=== PATIENT | male | born 1955 | race Caucasian/White ===

== ENCOUNTER 2018-03-24 08:12 | Outpatient (CLI) | payer MEDICAID, SELFPAY ==
[2018-03-24 09:56] LABS: Microalb ug/mg Crea 8.1 ug/mg Cr
[2018-03-24 10:06] LABS: Anion Gap 6.3 mmol/L (3-11); BUN 13 mg/dL (7-18); CO2 31.7 mmol/L (21.0-32.0); CREATININE 0.93 mg/dL (0.70-1.30); Chloride 102 mmol/L (98-107); Cholesterol 192 mg/dL (50-200); Glucose 130 mg/dL (70-100); HDL Cholesterol 27 mg/dL (40-60); LDL CHOLESTEROL 110 mg/dL (<100); Potassium 4.3 mmol/L (3.5-5.1); Sodium 140 mmol/L (136-145); Triglyceride 321 mg/dL (30-150)
== END 2018-03-24 08:32 ==
PROVIDERS: PCP Internal Medicine; Visit Provider Internal Medicine
DX: E11.9 Type 2 diabetes mellitus without complications (principal); E78.1 Pure hyperglyceridemia
CPT/HCPCS: 36415; 80048; 80061; 83721; 82043; 82570

== ENCOUNTER 2018-06-04 16:22 | Inpatient (IN) | payer MEDICARE, MEDICAID, SELFPAY ==
[2018-06-04] VITALS (58 sets, daily range): BP systolic 93–144; BP diastolic 49–93; PULSE 69–120; RESP 8–25; TEMP 36.3–39.2; O2SAT 91–98
--- NOTE | 2018-06-04 16:40 | ED.GENADUL_ITS ---
Discharge Plan Disposition Patient Disposition: [facility] INPATIENT Condition: Stable Discharge Details Chief Complaint: RespSymp Clinical Impression: Acute prostatitis, Sepsis Primary Care Provider: Deloris Ledesma ED Provider: Raul Martino Home Meds and New Rx's Prescriptions: No Action atorvastatin 20 mg tablet 20 mg PO DAILY Qty: 90 RF: 3 warfarin [Coumadin] 2.5 mg tablet 2.5 mg PO DAILY Qty: 140 RF: 3 cetirizine [Zyrtec] 10 MG tablet 10 mg PO DAILY PRNRF: 0 ginseng 100 MG capsule 100 mg PO PRN PRNRF: 0 gabapentin 300 MG capsule 300 mg PO TID Qty: 270 RF: 3 multivitamin [Daily Multi-Vitamin] 1 EACH tablet 1 ea PO DAILY RF: 0 allopurinol 100 mg tablet 100 mg PO DAILY 90 Days Qty: 90 RF: 3 Medical Decision Making This is a 63-year-old male with a past medical history of PE on Coumadin, gout, who presents today for 2-3 days of fatigue, cough, chills, decreased appetite. He does admit to mild shortness of breath. He denies any associated chest pain. Signs and symptoms are concerning for an infectious etiology. He is afebrile here, but notably tachycardic. He has not taken any recent antipyretics. He does have some mild burning when he urinates, this may be a source of infection for him. He denies any abdominal or pelvic pain. He denies any chest pain. Signs and symptoms do not appear consistent with ACS at this time. Lungs are clear, however he may have subtle crackles that I am unable to auscultate secondary to dehydration. Will check for flu, infectious etiologies, as well as PE. 7:33 PM Patient's laboratory workup has returned, patient is febrile, tachycardia is improving. He has a white count of 18, notable left shift, no bandemia. INR is 2.7. CT scan of the chest reveals no evidence of acute intrapulmonary process. CT scan of the abdomen and prostate reveal evidence of minimal diverticulosis without diverticulitis. Prostate is notably enlarged. Urinalysis has returned and demonstrates leuk esterase, nitrites, and micro was unable to be done secondary to the profuse amount of WBCs. Patient's renal function is stable, lactate is 1.4. With a benign EKG, negative troponin, negative CT angios of the chest I do not think that PE or cardiac etiology as a source of his symptoms, however with his notably enlarged prostate, in conjunction with a severe amount of WBCs in the urine, with nitrates and leukoesterase, in conjunction with his symptoms, I feel that the patient is suffering from bacterial prostatitis. He has no testicular or penile tenderness on exam. I do not think that a prostate exam should be performed in the setting of bacterial prostatitis. Because of the patient's Coumadin use we will hold off on Levaquin and instead give 2 g of Rocephin. We will send for urine cultures. Blood cultures are still pending. I did contact hospitalist , and discussed the case with him, he agrees with the assessment and plan. We will put in bridging orders for the time being. The patient will be admitted to the ICU is [facility]. I have extensively reviewed the treatment plan with the patient. I have addressed all patient concerns at this time. I have also discussed the plan with the admitting physician and they agree with the current assessment and plan and have agreed to assume responsibility for the patient. All parties demonstrate verbal understanding and agreement with our assessment and plan at this time. EKG 16: 46 Rate 110, intervals normal, sinus tachycardia, no significant ST elevations or depressions, no T wave inversions. Small Q wave in lead III. COMPARISON: CT CHEST FOR PULMONARY EMBOLUS 10/15/2013 6:08 PM FINDINGS: Pulmonary arteries: The pulmonary emboli seen on the 2013 have resolved. No new emboli are seen. Aorta: Normal. No aortic aneurysm. No aortic dissection. Lungs: There no worrisome lung nodules. There is mild scarring the lung bases. At the right lung bases is stable 4 mm noncalcified nodule Pleural space: Normal. No pneumothorax. No pleural effusion. Heart: Normal. No cardiomegaly. No pericardial effusion. Lymph nodes: Unremarkable. No enlarged lymph nodes. Bones/joints: Unremarkable. No acute fracture. Soft tissues: Unremarkable. IMPRESSION: EXAM: CT Angiography Abdomen With Contrast EXAM DATE/TIME: 06/04/2018 5:57 PM CLINICAL HISTORY: 63 years old, male; Signs and symptoms; Other: Fatigue; Shortness of breath TECHNIQUE: Imaging protocol: Axial computed tomographic angiography images of the abdomen with intravenous contrast material, including non-contrast images if performed. Coronal and sagittal reformatted images were created and reviewed. 3D rendering: MIP reconstructed images were created and reviewed. COMPARISON: CT CHEST FOR PULMONARY EMBOLUS 10/15/2013 6:08 PM FINDINGS: Lungs: Unremarkable. No consolidation. VASCULATURE: Aorta: No aortic aneurysm. No aortic dissection. Celiac trunk and mesenteric arteries: No occlusion or significant stenosis. Renal arteries: No occlusion or significant stenosis. ABDOMEN: Liver: Normal. No mass. Gallbladder and bile ducts: Normal. No calcified stones. No ductal dilation. Pancreas: Normal. No ductal dilation. Spleen: Normal. No splenomegaly. Adrenals: Normal. No mass. Kidneys and ureters: Normal. No hydronephrosis. Stomach and bowel: There few diverticula in left colon but no surrounding inflammation. Reproductive: There is moderate enlargement of the prostate gland. This is causing mild mass effect on the base the bladder. Intraperitoneal space: Unremarkable. No free air. No significant fluid collection. Bones/joints: Unremarkable. No acute fracture. No dislocation. Soft tissues: Unremarkable. Lymph nodes: Unremarkable. No enlarged lymph nodes. IMPRESSION: #1 no evidence of pulmonary emboli pneumonia nor pulmonary edema. #2 minimal diverticulosis without evidence of diverticulitis. #3 moderate enlargement of prostate gland. Dictated and Authenticated by: Vimal Clemente MD. Ordering:BOB Carter MD HPI General Date/Time Provider Initiated Documentation: 06/04/18 16:23 . HPI Narrative: This is a 63-year-old male with a past medical history of gout, pulmonary embolism on Coumadin, who presents today for evaluation of fatigue, cough, decreased appetite and chills. He states that for the last 2-3 days he has had these symptoms, he has not taken any antipyretics. He denies any chest pain, pleuritic chest pain, but does admit to mild shortness of breath. He denies any arm, neck, or shoulder pain or radiation. He denies any vomiting or diarrhea. He does admit to mild increase in urinary frequency and mild burning. He denies any recent STDs. He denies any vomiting, diarrhea, focal weakness, headache, neck pain, vision change. He denies any other sick contacts. He states that he has been taking his Coumadin as directed. He has no other complaints modifying factors at this time. He denies any recent surgeries or long trips. Related Data Home Medications Medication Instructions Recorded Confirmed cetirizine [Zyrtec] 10 mg PO DAILY PRN tab-cap 02/15/15 06/04/18 ginseng 100 mg PO PRN PRN 10/04/15 06/04/18 gabapentin 300 mg PO TID #270 tab-cap 02/04/17 06/04/18 multivitamin [Multi-Vitamin Daily] 1 ea PO DAILY tab 05/21/17 06/04/18 allopurinol 100 mg tablet 100 mg PO DAILY 90 Days #90 tab-cap 12/15/17 06/04/18 atorvastatin 20 mg tablet 20 mg PO DAILY #90 tab 03/24/18 06/04/18 warfarin 2.5 mg tablet 2.5 mg PO DAILY #140 tab 05/19/18 06/04/18 Previous Rx's Medication Instructions Recorded gabapentin 300 mg PO TID #270 tab-cap 02/04/17 allopurinol 100 mg tablet 100 mg PO DAILY 90 Days #90 tab-cap 12/15/17 atorvastatin 20 mg tablet 20 mg PO DAILY #90 tab 03/24/18 warfarin 2.5 mg tablet 2.5 mg PO DAILY #140 tab 05/19/18 Allergies Allergy/AdvReac Type Severity Reaction Status Date / Time No Known Drug Allergies Allergy Verified 04/21/18 12:06 General Stated Complaint: RespSymp JOHNATHAN: 3 Review of Systems Review of Systems All systems reviewed & are unremarkable except as noted in HPI and below PFSH Social History Smoking/Tobacco Use Status: Never Alcohol Intake: former Drug use: Never Substance use type: does not use Adopted: No Caregiver/Support person: No Foster care: No Household members: family Housing: house Number of Children: 0 current occupation: used to work in [employer] Pets and animals: Yes What type of physical activity do you participate in: none and 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 3.ENT: Atraumatic external nose and ears. Moist MM. Neck: Symmetric, trachea midline, No thyromegaly. Patient demonstrates good movement of cervical neck. There is no nuchal rigidity, no nuchal tenderness. Patient is able to flex the neck without any difficulty or significant pain. Negative Kernig's and Brudzinski sign. 4.CVS: +S1/S2, No murmurs or gallops. Peripheral pulses 2+ and equal in all extremities. Brisk capillary refill in all extremities. 5.RESP: Unlabored respiratory effort. Clear to auscultation bilaterally. No wheezes rales or rhonchi 6.GI: Soft, Nontender/Nondistended, No hepatosplenomegaly. No guarding or rebound. No testicular or scrotal tenderness. 7.MSK: Normocephalic/Atraumatic, Extremities w/o deformity or ttp No cyanosis or clubbing, Normal movement of all extremities. No calf tenderness, radial pulses and dorsalis pedis pulses +2 bilaterally. 8.Skin: Warm, Dry. No rashes or lesions. 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 Sensation grossly intact, no focal neurologic deficits. 10.Psych: (AAO) x3. Appropriate mood and affect Course Vital Signs Temperature 36.3 C L 06/04/18 16:28 Pulse 120 H 06/04/18 16:28 Respiratory Rate 18 06/04/18 16:28 Blood Pressure 144/75 H 06/04/18 16:28 Pulse Oximetry 95 06/04/18 16:28 Temperature 36.3 C L 06/04/18 16:28 Temperature Source Skin 06/04/18 16:28 Pulse 120 H 06/04/18 16:28 Respiratory Rate 18 06/04/18 16:28 Blood Pressure 144/75 H 06/04/18 16:28 Pulse Oximetry 95 06/04/18 16:28 Lab/Test Results Lab/Test Results: 06/04/18 16:33 Blood Blood Culture - Pending 06/04/18 16:33 Blood Blood Culture - Pending
[2018-06-04 17:11] LABS: Lactate-non-spesis 1.4 mmol/l (0.6-1.4)
[2018-06-04 17:13] LABS: Abs Immature Grans 0.06 k/cumm (0.0-0.09); Absolute Basophil Count 0.02 k/cumm (0.0-0.2); Absolute Eosinophil Count 0.02 k/cumm (0.0-0.7); Absolute Lymphocyte Count 0.66 k/cumm (1.2-3.4); Absolute Neutrophil Count 16.13 k/cumm (1.2-6.7); Basophils % 0.1; Eosinophils % 0.1; HCT 45.8 % (40.0-50.0); HGB 15.8 g/dL (13.5-17.5); Immature Grans % 0.3; Lymphocytes % 3.6; Mean Corp. HGB Concentration 34.5 g/dL (32.0-36.0); Mean Corpuscular Volume 92.7 fL (80-95); Mean Platelet Volume 9.2 fL (8.0-11.0); Monocytes % 7.9; Platelet Count 200 x1000/uL (130-400); RBC 4.94 m/cumm (4.50-6.00); RBC Distribution Width 13.2 % (11.8-14.1); White Blood Cell Count 18.33 k/cumm (4.4-10.8)
[2018-06-04 17:20] LABS: Absolute Monocyte Count 1.45 k/cumm (0.11-0.7)
[2018-06-04 17:21] LABS: Bilirubin Small (Negative); Blood Large (Negative); Clarity Cloudy; Glucose Negative (Negative); Ketones 15 mg/dL (Negative); Leukocyte Esterase Small (Negative); Nitrite Positive (Negative)
[2018-06-04 17:28] LABS: C & S Indicated? Yes
[2018-06-04] MEDS: Normal Saline 1,000 ML 1000 ML IV ×2 (17:50→19:34)
[2018-06-04 17:56] LABS: INR 2.7 (0.9-1.1); PTT Activated 34.3 sec (21.0-31.4)
[2018-06-04 18:01] LABS: ALT 28 U/L (12-78); AST 13 U/L (15-37); Albumin 3.6 g/dL (3.4-5.0); Alkaline Phosphatase 103 U/L (46-116); Anion Gap 8.7 mmol/L (3-11); BUN 15 mg/dL (7-18); Bilirubin, Total 1.6 mg/dL (0.2-1.0); CO2 28.3 mmol/L (21.0-32.0); CREATININE 1.17 mg/dL (0.70-1.30); Chloride 99 mmol/L (98-107); Glucose 147 mg/dL (70-100); Potassium 3.9 mmol/L (3.5-5.1); Sodium 136 mmol/L (136-145); Total Protein 7.3 g/dL (6.4-8.2)
[2018-06-04 18:02] LABS: Troponin I < 0.02 ng/mL (0.00-0.06)
--- NOTE | 2018-06-04 18:15 | DI.CT_ITS ---
SYMPTOM/DIAGNOSIS: SOB, FATIGUE, TACHYCARDIA, H/O PE PE CHEST CTA: CT angiography was performed with multi slice acquisition and multi planar and 3D reconstruction. CT angiography of the chest was performed with a bolus infusion of 100 cc's of Omnipaque 350. The patient has a history of previous pulmonary embolic disease seen on chest CT of 10/15/13. 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 No new embolus identified. Thoracic aorta and major branches appear normal. Lungs are generally clear. No pleural effusion is seen. Incidental pulmonary nodules are noted including a 5 mm. right lower lobe nodule. This appears unchanged from 10/15/13. Tracheobronchial tree appears intact. No mediastinal or hilar adenopathy. 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 in diameter. CONCLUSION: No evidence of acute pulmonary embolic disease. Presumed sequelae of old PE in right lower lobe pulmonary arterial vessels. ABDOMINAL AND PELVIC CT: CT examination of the abdomen and pelvis was performed following the contrast enhanced PE CT. Abdominal aorta is of normal diameter. No major branch vessel abnormality is seen. Liver, spleen and pancreas appear normal. Gallbladder and bile ducts are normal. Adrenals and kidneys are normal. No abdominal or pelvic adenopathy is seen. No evidence of diverticulitis or bowel obstruction. Normal appearance of the appendix. Prostatic enlargement noted. CONCLUSION: No evidence of acute intra-abdominal process.
[2018-06-04] MEDS: Omnipaque 350 MG/ML 100 ML BTL IJ (18:17)
--- NOTE | 2018-06-04 18:42 | DI.VRAD_ITS ---
EXAM: CT Angiography Chest With Contrast EXAM DATE/TIME: 06/04/2018 5:57 PM CLINICAL HISTORY: 63 years old, male; Signs and symptoms; Other: Fatigue; Shortness of breath TECHNIQUE: Imaging protocol: Axial computed tomographic angiography images of the chest with intravenous contrast using CT angiography protocol. Coronal and sagittal reformatted images were created and reviewed. 3D rendering: MIP reconstructed images were created and reviewed. COMPARISON: CT CHEST FOR PULMONARY EMBOLUS 10/15/2013 6:08 PM FINDINGS: Pulmonary arteries: The pulmonary emboli seen on the 2013 have resolved. No new emboli are seen. Aorta: Normal. No aortic aneurysm. No aortic dissection. Lungs: There no worrisome lung nodules. There is mild scarring the lung bases. At the right lung bases is stable 4 mm noncalcified nodule Pleural space: Normal. No pneumothorax. No pleural effusion. Heart: Normal. No cardiomegaly. No pericardial effusion. Lymph nodes: Unremarkable. No enlarged lymph nodes. Bones/joints: Unremarkable. No acute fracture. Soft tissues: Unremarkable. IMPRESSION: EXAM: CT Angiography Abdomen With Contrast EXAM DATE/TIME: 06/04/2018 5:57 PM CLINICAL HISTORY: 63 years old, male; Signs and symptoms; Other: Fatigue; Shortness of breath TECHNIQUE: Imaging protocol: Axial computed tomographic angiography images of the abdomen with intravenous contrast material, including non-contrast images if performed. Coronal and sagittal reformatted images were created and reviewed. 3D rendering: MIP reconstructed images were created and reviewed. COMPARISON: CT CHEST FOR PULMONARY EMBOLUS 10/15/2013 6:08 PM FINDINGS: Lungs: Unremarkable. No consolidation. VASCULATURE: Aorta: No aortic aneurysm. No aortic dissection. Celiac trunk and mesenteric arteries: No occlusion or significant stenosis. Renal arteries: No occlusion or significant stenosis. ABDOMEN: Liver: Normal. No mass. Gallbladder and bile ducts: Normal. No calcified stones. No ductal dilation. Pancreas: Normal. No ductal dilation. Spleen: Normal. No splenomegaly. Adrenals: Normal. No mass. Kidneys and ureters: Normal. No hydronephrosis. Stomach and bowel: There few diverticula in left colon but no surrounding inflammation. Reproductive: There is moderate enlargement of the prostate gland. This is causing mild mass effect on the base the bladder. Intraperitoneal space: Unremarkable. No free air. No significant fluid collection. Bones/joints: Unremarkable. No acute fracture. No dislocation. Soft tissues: Unremarkable. Lymph nodes: Unremarkable. No enlarged lymph nodes. IMPRESSION: #1 no evidence of pulmonary emboli pneumonia nor pulmonary edema. #2 minimal diverticulosis without evidence of diverticulitis. #3 moderate enlargement of prostate gland. Dictated and Authenticated by: Vimal Clemente MD. Ordering:BOB Carter MD
[2018-06-04] MEDS: cefTRIAXone 2 GM/50 ML BAG IVPB (18:57)
[2018-06-04] MEDS: Acetaminophen 500 MG TAB 1000 MG PO (18:59)
--- NOTE | 2018-06-04 20:06 | HPE_ITS ---
Date of service: 06/04/18 Time of Service: 20:05 Assessment and Plan (1) Acute prostatitis: Current visit: Yes Status: Acute Patient will be admitted to ICU for further parenteral antibiotics, iv fluids, analgesics. we will get urology consultation in the a.m. and obtain U.S. of kidneys, bladder to rule other nidus for UTI; otherwise he will need 4 to 6 weeks of antibiotics. 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 This complicates his antibiotic treatment in that quinolones and bactrim interact w/ his warfarin. He was started on Rocephin 2 gm in the ER. Blood and urine cultures were obtained and antibiotics may need to be modified based upon his culture results. He has not been on recent antibiotics and not been hospitalized so there is no suspicion for resistant Enterobacteriacae or Staph. I have kept him on the Rocephin for now. He is not sexually active and therefore not concerned for GC or Chlamydia. He could be switched to Levaquin but his warfarin dose would have to be titrated downward and closely monitored. (2) Type 2 diabetes mellitus without complication, without long-term current use of insulin: Current visit: No Status: Chronic will monitor his glucose, check an A1c and cover w/ meal coverage and sliding scale corrective novolog History of Present Illness Chief Complaint: rigors/chills Narrative: 63-year-old male presents to the emergency department with 2-day history of increased urinary urgency and urge incontinence now developed acute rigors beginning this afternoon. For the last 2 days he has had fatigue and decreased appetite. He initially thought he had the flu but when the chills become uncontrollable he decided to present to the emergency department. He has no associated shortness of breath, abdominal pain, chest pain, dizziness and he is not noticed any gross hematuria or burning with urination. He was evaluated in the emergency department by Dr. Raul Martino who did laboratory and radiologic studies that included a CBC, pro time, APTT, CMP, blood lactate level, troponin level, TSH, and urinalysis. CT scan of the chest abdomen and pelvis were also performed. Remarkable labs included a leukocytosis of 18,330 with a leftward shift of 16,000 neutrophils. No anemia or thrombocytopenia. Electrolytes are unremarkable. Glucose was elevated 147. Blood lactate was normal at 1.4. BUN and creatinine were normal at 15 and 1.17. LFTs were normal. Troponin was normal at less than 0.02. TSH was normal at 0.6. Urinalysis was remarkable for being cloudy with 100 mg/dL protein 50 mg/dL ketones large amount of blood positive nitrites small amount of bilirubin small amount of leukocyte esterase but negative for glucose. Blood and urine cultures were sent off. Patient was started on parenteral antibiotics including Rocephin 2 g IV. He was diagnosed with acute prostatitis with impending sepsis. Picture of sepsis was suggested by his acute presentation with a temperature 39.2 and being tachycardic with low blood pressures of 100/62. He was given 2 L of IV fluids and Tylenol and is feeling improved. His diagnostic imaging included a CT scan of the chest abdomen and pelvis. He had no evidence of pulmonary emboli and no pulmonary edema. He had minimal diverticulosis without evidence for diverticulitis and he has moderate enlargement of his prostate gland. Patient is being admitted to medical ICU for further IV fluid support along with parenteral antibiotics. Consultation will be obtained with Dr. Vinh Duarte urology in the morning. Prostate exam was not performed in the emergency room out of fear of causing further seating of the blood stream for manipulation the prostate. Review of Systems Constitutional Reports system reviewed and no additional complaints, except as docu PFSH Medical History Type 2 diabetes, diet controlled (Chronic) Gout, unspecified (Chronic) Post herpetic neuralgia (Chronic) h/o elevated psa (Chronic) Pulmonary embolism (Resolved 10/16/13) Surgical History thyroid biopsy (Resolved 11/15/13) Family History Mother Essential hypertension Stroke Father Spinal stenosis Other Personal history of malignant neoplasm Social History Smoking/Tobacco Use Status: Never Alcohol Intake: former Year quit: 2008 Drug use: Never Substance use type: does not use Adopted: No Caregiver/Support person: No Foster care: No Household members: family Housing: house Number of Children: 0 current occupation: used to work in [employer] Pets and animals: Yes What type of physical activity do you participate in: none and other Details: shoveling snow Duration: 45-60 minutes/day Seatbelt use: always Drive intox or ride w/intox commercial truck driver: No Water heater temp set <120 deg: No Working smoke detector in home: No Fire extinguisher in home: Yes Carbon monox detector in home: No Do you feel safe at home: Yes Do you feel safe in your relationship?: Yes Victim of physical abuse: No Victim of emotional abuse: No Victim of sexual abuse: No Meds Home Medications Medication Instructions Recorded Confirmed Type cetirizine [Zyrtec] 10 mg PO DAILY PRN tab-cap 02/15/15 06/04/18 History ginseng 100 mg PO PRN PRN 10/04/15 06/04/18 History gabapentin 300 mg PO TID #270 tab-cap 02/04/17 06/04/18 Rx multivitamin [Multi-Vitamin Daily] 1 ea PO DAILY tab 05/21/17 06/04/18 History allopurinol 100 mg tablet 100 mg PO DAILY 90 Days #90 tab-cap 12/15/17 06/04/18 Rx atorvastatin 20 mg tablet 20 mg PO DAILY #90 tab 03/24/18 06/04/18 Rx warfarin 2.5 mg tablet 2.5 mg PO DAILY #140 tab 05/19/18 06/04/18 Rx Allergies Allergy/AdvReac Type Severity Reaction Status Date / Time No Known Drug Allergies Allergy Verified 04/21/18 12:06 Exam Const General: cooperative and no acute distress Nutritional Appearance: obese Orientation: alert, awake and oriented x3 HENMT Head: normal to inspection, no palpable skull fracture, normocephalic and atraumatic Ears: external ears normal and TM's normal bilaterally General nose exam: external nose normal, nares normal and no nasal discharge Face and sinus: normal facial exam, sinuses nontender and face symmetric Mouth: oral mucosae normal, lip normal, tongue normal, oropharynx normal and moist mucous membranes Throat: posterior oropharynx normal and uvula midline Eyes General: appearance normal, both eyes and all related structures Visual Villatoro: normal visual villatoro by confrontation Alignment and Position: alignment normal Periorbital: periorbital findings normal Eyelids: eyelids normal Conjunctivae: conjunctivae normal Sclera: sclerae normal Cornea: corneas normal Pupils: PERRL, normal by confrontation and accommodation normal EOM: EOM intact bilaterally Neck Neck: normal visual inspection, full ROM, no lymphadenopathy, trachea midline and supple Thyroid: thyroid normal Carotids: normal carotid upstroke Lymphatic: no lymphadenopathy noted Chest Chest: normal inspection of the chest and normal palpation of entire chest wall Resp Effort & Inspection: normal respiratory effort and able to speak in complete sentences Auscultation: clear to auscultation bilaterally Percussion: percussion normal Cardio Jugular venous pressure: no JVD Palpation: normal PMI Rate: regular rate Rhythm: regular rhythm Heart Sounds: S1 normal, S2 normal and normal, physiologic split S2 Pulses: normal peripheral pulses GI Inspection: normal to inspection Palpation: soft, no hepatosplenomegaly and nontender Percussion: normal to percussion Auscultation: normal bowel sounds General: bladder normal to inspection, bladder normal to palpation and No CVA tenderness Back/Spine/Pelvis Back: no CVA tenderness Cervical Spine: normal cervical lordosis and cervical ROM normal Thoracic/Lumbar Spine: thoracic and lumbar spine normal to inspection and thoraco-lumbar ROM normal Skin General skin exam: no rashes or lesions noted, elasticity normal and turgor norm al Lesions: no lesions Rashes: no rashes Trauma: no lacerations or abrasions Hair: normal Nails: normal Neuro General: alert, awake, oriented x3, moves all extremities and no focal motor deficits Cognition: normal cognition Speech: speech normal Gait: normal gait Motor: muscle tone normal throughout, strength 5/5 throughout, no pronator drift, no movement abnormalities noted and no fasciculations Sensory Exam: no sensory deficits noted Extrem General: normal to inspection, full ROM, normal capillary refill, no joint enlargement, no clubbing, cyanosis or edema and no calf tenderness bilaterally Results Imaging Abdomen CT scan report/results: report reviewed CT scan - chest: report reviewed (IMPRESSION: #1 no evidence of pulmonary emboli pneumonia nor pulmonary edema. #2 minimal diverticulosis without evidence of diverticulitis. #3 moderate enlargement of prostate gland.) CT scan - pelvis: report reviewed Labs : 06/04/18 17:05 06/04/18 17:05 Laboratory Results - last 24 hr 06/04/18 06/04/18 06/04/18 17:00 17:05 17:05 WBC RBC Hgb Hct MCV MCH MCHC RDW Plt Count MPV Immature Gran % Neutrophils % Lymphocytes % Monocytes % Eosinophils % Basophils % Absolute Neutrophils Absolute Lymphocytes Absolute Monocytes Absolute Eosinophils Absolute Basophils PT INR APTT Sodium 136 Potassium 3.9 Chloride 99 Carbon Dioxide 28.3 Anion Gap 8.7 BUN 15 Creatinine 1.17 Estimated GFR/1.73 m2 >= 60.00 Glucose 147 H Lactate 1.4 Calcium 9.0 Total Bilirubin 1.6 H AST 13 L ALT 28 Alkaline Phosphatase 103 Troponin I < 0.02 Total Protein 7.3 Albumin 3.6 TSH 0.60 Urine Color Yellow Urine Clarity Cloudy Urine pH 6.0 Ur Specific [place] 1.020 Urine Protein 100 H Urine Ketones 15 H Urine Blood Large H Urine Nitrite Positive H Urine Bilirubin Small H Urine Urobilinogen 1.0 H Ur Leukocyte Esterase Small H Urine RBC Not Applicable Urine WBC Ur Epithelial Cells Not Applicable Urine Crystals Not Applicable Urine Bacteria Not Applicable Urine Mucus Not Applicable Ur Culture Indicated? Yes Urine Glucose Negative 06/04/18 06/04/18 17:05 17:05 WBC 18.33 H RBC 4.94 Hgb 15.8 Hct 45.8 MCV 92.7 MCH 32.0 MCHC 34.5 RDW 13.2 Plt Count 200 MPV 9.2 Immature Gran % 0.3 Neutrophils % 88.0 Lymphocytes % 3.6 Monocytes % 7.9 Eosinophils % 0.1 Basophils % 0.1 Absolute Neutrophils 16.13 H Absolute Lymphocytes 0.66 L Absolute Monocytes 1.45 H Absolute Eosinophils 0.02 Absolute Basophils 0.02 PT 27.0 H INR 2.7 H APTT 34.3 H Sodium Potassium Chloride Carbon Dioxide Anion Gap BUN Creatinine Estimated GFR/1.73 m2 Glucose Lactate Calcium Total Bilirubin AST ALT Alkaline Phosphatase Troponin I Total Protein Albumin TSH Urine Color Urine Clarity Urine pH Ur Specific [place] Urine Protein Urine Ketones Urine Blood Urine Nitrite Urine Bilirubin Urine Urobilinogen Ur Leukocyte Esterase Urine RBC Urine WBC Ur Epithelial Cells Urine Crystals Urine Bacteria Urine Mucus Ur Culture Indicated? Urine Glucose Last Vital Signs Temp 39.2 C H 06/04/18 18:59 Pulse 93 H 06/04/18 19:16 Resp 16 06/04/18 19:20 BP 104/93 H 06/04/18 19:16 Pulse Ox 94 L 06/04/18 19:20
[2018-06-04] MEDS: Normal Saline 1,000 ML 150 ML IV (21:50)
[2018-06-05] VITALS (67 sets, daily range): BP systolic 110–135; BP diastolic 55–80; PULSE 61–98; RESP 0–24; TEMP 37.3–39.1; O2SAT 93–99
[2018-06-05] MEDS: Normal Saline 1,000 ML 150 ML IV ×3 (03:44→17:58)
[2018-06-05 07:00] LABS: Abs Immature Grans 0.07 k/cumm (0.0-0.09); Basophils % 0.2; Eosinophils % 0.3; HGB 14.2 g/dL (13.5-17.5); Immature Grans % 0.4; Lymphocytes % 5.7; Mean Corpuscular Hemoglobin 31.4 pg (27.0-33.0); Mean Corpuscular Volume 95.1 fL (80-95); Mean Platelet Volume 9.9 fL (8.0-11.0); Monocytes % 9.4; Platelet Count 176 x1000/uL (130-400); RBC 4.52 m/cumm (4.50-6.00); RBC Distribution Width 13.4 % (11.8-14.1); White Blood Cell Count 19.85 k/cumm (4.4-10.8)
--- NOTE | 2018-06-05 07:00 | DI.US_ITS ---
SYMPTOM/DIAGNOSIS: UROSEPSIS, PROSTATITIS RENAL ULTRASOUND: The kidneys are normal in size and shape and there is no evidence of a renal mass or hydronephrosis. There is a probable mid pole, non obstructing stone of the right kidney measuring about 6 mm. in diameter. Urinary bladder has a significant postvoid residual with pre and post void residual volumes of 331 cc's and 189 cc's respectively. Prostatic volume is 71 cc's. CONCLUSION: Possible non obstructing right renal calculus. Post residual volume of the bladder of 189 cc's.
[2018-06-05 07:03] LABS: INR 2.2 (0.9-1.1); Prothrombin Time 22.4 sec (9.3-11.0)
[2018-06-05 07:05] LABS: BUN 13 mg/dL (7-18); CREATININE 1.02 mg/dL (0.70-1.30); Chloride 102 mmol/L (98-107); Glucose 197 mg/dL (70-100); Sodium 137 mmol/L (136-145)
[2018-06-05 07:14] LABS: Absolute Basophil Count 0.04 k/cumm (0.0-0.2); Absolute Eosinophil Count 0.06 k/cumm (0.0-0.7); Absolute Lymphocyte Count 1.13 k/cumm (1.2-3.4); Absolute Monocyte Count 1.87 k/cumm (0.11-0.7); Absolute Neutrophil Count 16.67 k/cumm (1.2-6.7)
[2018-06-05 07:29] LABS: Diff Comment Manual Differential; Polychromasia Present
[2018-06-05] MEDS: Gabapentin 300 MG CAP PO ×2 (08:06→19:32)
[2018-06-05] MEDS: Allopurinol 100 MG TAB PO (08:06)
[2018-06-05] MEDS: Atorvastatin 20 MG TAB PO (08:06)
[2018-06-05] MEDS: Multivitamin TAB 1 TAB PO (08:06)
[2018-06-05] MEDS: Insulin Aspart 300 UNITS/3 ML PEN SC ×4 (09:30→21:59)
--- NOTE | 2018-06-05 10:51 | PHARADMIT ---
Addendum entered by Sierra Weir 06/08/18 16:39: Pharmacy Note Subjective Objective VS-okay mag-1.7 INR-1.5 Assessment on enoxaparin and heparin, extra dose of heparin given this morning furosemide and replacement mag ordered meropenem discontinued; levofloxacin continues (day 2; day 4 total abx plan is for 14 days) Plan watch INR, watch for change to po levofloxacin Addendum entered by Barb Tai 06/07/18 13:55: Pharmacy Note Subjective waiting for urology consult, suspected prostatitis and 6mm non obstructing stone Objective INR 1.7, WBC and ANC dropping, Assessment meropenem started, warfarin dosing changed to home regimen Plan MD notes awaiting speciation for antibiotic narrowing Original Note: Admission Pharmacy Clinical Review PROSTATITIS (US today for possible stone) Code Status Full Code Current Weight Wgt-110.2 kg Renally Cleared and Narrow Therapeutic Index Meds CrCl~ 72 mL/min Meds-OK QTc Value / Action Taken QTc-414 na BP Control, Fever BP- 127/59 Tmax- 37.3 Electrolytes reviewed Na- 137 K+4.0 DVT Prophylaxis Warfarin Opiate Usage / Scheduled Bowel Regimen Ordered No Yes Plt/SCr for Heparin / Enoxaparin Plts-176 SCr-1.02 INR for Warfarin INR-2.2 H/H stable, WBC/Bands H&H- 14.2/43.0 WBC- 19.85 Antibiotic appropriateness Rocephin, Cultures and Sensitivities Blood-pending, Urine-pending Flu-neg Surgical ABX d/c within 24 hr na DM control / Insulin Dosing BG- 197 FzM2a-9.0% Aspart Heart Failure (Check EF%) (ALINE's, B-Block, Diuretics) None IV to PO Switch no Home Meds Reviewed Yes Home Meds Not Ordered Ordered Comments Korin Whyte
--- NOTE | 2018-06-05 11:07 | PDOC.CMIN ---
Care Management Initial Assess REASON FOR HOSPITALIZATION:: Prostatitis PAST MEDICAL HISTORY/PAST SURGICAL HISTORY:: Type 2 diabetes, diet controlled, Gout, unspecified (Chronic). Post herpetic neuralgia, h/o elevated psa, Pulmonary embolism, thyroid biopsy, alcohol abstinence since 2008 PREVIOUS FUNCTIONAL STATUS/SOCIAL/FAMILY SUPPORTS:: Jer resides with his fatherJohnnie in [place], [place]. 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 He is independent at baseline with activities of daily life. CURRENT FUNCTIONAL STATUS:: Jer is lying in bed when CM meets with him, he verbalizes worries regarding pending imaging reports, but states he is feeling better. ADVANCE DIRECTIVES:: None on file at [facility] Has patient been provided with information about the portal?: Yes Did the patient sign up for the portal?: No CODE STATUS:: Full Code INSURANCE COVERAGE / FINANCIAL ISSUES:: Medicaid CURRENT HOME/COMMUNITY SERVICES/EQUIPMENT:: No current services or equipment utilized. PRIMARY CARE PHYSICIAN:: Deloris Ledesma POTENTIAL DISCHARGE NEEDS:: Follow up appointment with PCP. PATIENT/FAMILY EDUCATION NEEDS:: Review of discharge instructions, discuss Ask Me Three. ANTICIPATED BARRIERS TO DISCHARGE:: None identified at this time. TRANSPORTATION:: Dependent on disposition, private [id number]. PLAN:: Jer will continue to be closely monitored. He will have a kidney ultrasound to determine whether MD will seek transfer. In the event transfer is not required, Jer will remain at [facility] through the weekend for Urology consult per MD. CM will continue to follow.
--- NOTE | 2018-06-05 11:58 | DI.RAD_ITS ---
SYMPTOMS/DIAGNOSIS: WORSENING COUGH SINCE IVF, ? CHF PORTABLE AP CHEST: The heart is at the upper limits of normal in size. The lungs are grossly clear. Note is made of a large substernal goiter. No gross pleural effusion identified on this AP view. CONCLUSION: No evidence of acute disease.
--- NOTE | 2018-06-05 13:36 | INITIAL_ITS ---
Care Management Initial Assess REASON FOR HOSPITALIZATION:: Prostatitis PAST MEDICAL HISTORY/PAST SURGICAL HISTORY:: Type 2 diabetes, diet controlled, Gout, unspecified (Chronic). Post herpetic neuralgia, h/o elevated psa, Pulmonary embolism, thyroid biopsy, alcohol abstinence since 2008 PREVIOUS FUNCTIONAL STATUS/SOCIAL/FAMILY SUPPORTS:: Jer resides with his fatherJohnnie in [place], [place]. 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 He is independent at baseline with activities of daily life. CURRENT FUNCTIONAL STATUS:: Jer is lying in bed when CM meets with him, he verbalizes worries regarding pending imaging reports, but states he is feeling better. ADVANCE DIRECTIVES:: None on file at [facility] Has patient been provided with information about the portal?: Yes Did the patient sign up for the portal?: No CODE STATUS:: Full Code INSURANCE COVERAGE / FINANCIAL ISSUES:: Medicaid CURRENT HOME/COMMUNITY SERVICES/EQUIPMENT:: No current services or equipment utilized. PRIMARY CARE PHYSICIAN:: Deloris Ledesma POTENTIAL DISCHARGE NEEDS:: Follow up appointment with PCP. PATIENT/FAMILY EDUCATION NEEDS:: Review of discharge instructions, discuss Ask Me Three. ANTICIPATED BARRIERS TO DISCHARGE:: None identified at this time. TRANSPORTATION:: Dependent on disposition, private [id number]. PLAN:: Jer will continue to be closely monitored. He will have a kidney ultrasound to determine whether MD will seek transfer. In the event transfer is not required, Jer will remain at [facility] through the weekend for Urology consult per MD. CM will continue to follow.
--- NOTE | 2018-06-05 13:48 | CHAPLAIN ---
Jer was in bed when I visited. He told me that he is not pentecostal although he has studied religions around the world and believes that when we , we'll find out if pentecostal beliefs are right. Jer easily engages in a conversation and tells me about moving to [facility] over 30 years ago. He lives with his 90 year old dad and blind sister. Jer said depending on what he learns about his health issues, he will get my affairs in order. He has believed up until now that his is fairly indestructible, so the idea of having a significant health issue has caught him off guard, he said. I offered support and let him know that kyle is here 17/09 if he would want further conversation.
--- NOTE | 2018-06-05 17:14 | PGE_ITS ---
Date of Service Date of service: 06/05/18 Time of Service: 17:11 Assessment and Plan (1) Sepsis: Current visit: Yes Status: Acute Due to GNR UTI/prostatitis, present on admission, now with GNR bacteremia. Repeat blood cultures to be done tomorrow. Continue empiric rocephin 2 grams IV daily. Discussed with urology at [facility] (Dr Boby Urbina). Per him, even though the patient has a 6 mm stone, as long as it is nonobstructing, no surgical intervention is indicated. Urology consulted and should be available at [facility] on 06/08/18. (2) Bacteremia due to Gram-negative bacteria: Current visit: Yes Status: Acute As above (3) Acute prostatitis: Current visit: Yes Status: Acute As above (4) Nephrolithiasis: Current visit: Yes Status: Chronic As above (5) Urinary retention: Current visit: Yes Status: Acute Bladder scans q6 - may require a fajardo catheter. (6) Type 2 diabetes mellitus without complication, without long-term current use of insulin: Current visit: No Status: Chronic Continue SSI, carb counting prandial insulin, carb consistent diet (7) History of pulmonary embolism: Current visit: Yes Status: Acute Continue coumadin - dose retimed for evening. (8) Discharge planning issues: Current visit: Yes Status: Acute full code continues to require hospitalization. Will require 2 weeks of antibiotics (possibly IV) from the first negative blood culture (9) DVT prophylaxis: Current visit: Yes Status: Acute therapeutic on coumadin Subjective Interval history since last seen: Mr Klein states he is feeling a lot better. He endorses a cough which is slightly worse than his usual chronic cough. He denies dizziness, chest pain, nausea, vomiting. He does not have any unusual back pain. Exam Narrative Exam Narrative: General: Middle-Aged male, A&Ox3, NAD HEENT: EOMI, MMM Heart: RRR, no m/r/g Lungs: slightly coarse breath sounds B GI: abdomen is soft, nontender, nondistended Extremities: no e/c/c BLE's - 2+ BLE pedal pulses Objective Objective Clinical Data: Abnormal lab results 06/04/18 06/04/18 06/04/18 Range/Units 17:00 17:05 17:05 WBC 18.33 H (4.4-10.8) k/cumm MCV (80-95) fL Absolute Neutrophils 16.13 H (1.2-6.7) k/cumm Absolute Lymphocytes 0.66 L (1.2-3.4) k/cumm Absolute Monocytes 1.45 H (0.11-0.7) k/cumm PT (9.3-11.0) sec INR (0.9-1.1) APTT (21.0-31.4) sec Glucose 147 H (70-100) mg/dL Hemoglobin A1c (4.5-6.2) % Calcium (8.5-10.1) mg/dL Total Bilirubin 1.6 H (0.2-1.0) mg/dL AST 13 L (15-37) U/L Urine Protein 100 H (Negative) mg/dL Urine Ketones 15 H (Negative) mg/dL Urine Blood Large H (Negative) Urine Nitrite Positive H (Negative) Urine Bilirubin Small H (Negative) Urine Urobilinogen 1.0 H (Up TO 0.2) EU/dL Ur Leukocyte Esterase Small H (Negative) 06/04/18 06/05/18 06/05/18 Range/Units 17:05 06:20 06:20 WBC (4.4-10.8) k/cumm MCV (80-95) fL Absolute Neutrophils (1.2-6.7) k/cumm Absolute Lymphocytes (1.2-3.4) k/cumm Absolute Monocytes (0.11-0.7) k/cumm PT 27.0 H (9.3-11.0) sec INR 2.7 H (0.9-1.1) APTT 34.3 H (21.0-31.4) sec Glucose 197 H (70-100) mg/dL Hemoglobin A1c 7.0 H (4.5-6.2) % Calcium 8.0 L (8.5-10.1) mg/dL Total Bilirubin (0.2-1.0) mg/dL AST (15-37) U/L Urine Protein (Negative) mg/dL Urine Ketones (Negative) mg/dL Urine Blood (Negative) Urine Nitrite (Negative) Urine Bilirubin (Negative) Urine Urobilinogen (Up TO 0.2) EU/dL Ur Leukocyte Esterase (Negative) 06/05/18 06/05/18 Range/Units 06:20 06:20 WBC 19.85 H (4.4-10.8) k/cumm MCV 95.1 H (80-95) fL Absolute Neutrophils 16.67 H (1.2-6.7) k/cumm Absolute Lymphocytes 1.13 L (1.2-3.4) k/cumm Absolute Monocytes 1.87 H (0.11-0.7) k/cumm PT 22.4 H (9.3-11.0) sec INR 2.2 H (0.9-1.1) APTT (21.0-31.4) sec Glucose (70-100) mg/dL Hemoglobin A1c (4.5-6.2) % Calcium (8.5-10.1) mg/dL Total Bilirubin (0.2-1.0) mg/dL AST (15-37) U/L Urine Protein (Negative) mg/dL Urine Ketones (Negative) mg/dL Urine Blood (Negative) Urine Nitrite (Negative) Urine Bilirubin (Negative) Urine Urobilinogen (Up TO 0.2) EU/dL Ur Leukocyte Esterase (Negative) Vital Signs Temperature 37.3 C 06/05/18 08:00 Temperature Source Tympanic 06/05/18 08:00 Pulse 91 H 06/05/18 12:07 Pulse 82 06/05/18 10:40 Respiratory Rate 11 L 06/05/18 10:40 Respiratory Effort 06/05/18 08:00 Respiratory Depth Normal 06/05/18 08:00 Respiratory Pattern Normal 06/05/18 08:00 Blood Pressure 129/70 06/05/18 12:07 Blood Pressure Mean 83 06/05/18 12:07 Blood Pressure Position Sitting 06/05/18 08:00 Pulse Oximetry 96 06/05/18 11:30 Oxygen Delivery Method Room Air 06/05/18 08:00 Oxygen Flow Rate 0 06/05/18 08:00 Pain Level 0 06/05/18 08:00 Intake & Output 06/04/18 06/05/18 06/05/18 23:59 11:59 23:59 Intake Total 2049 2365 / 2365 Output Total 450 / 450 1000 / 1000 Balance 1600 / 1600 1365 / 1365 Weight 110.2 kg Intake: IV 2050 / 2050 1885 / 1885 Oral 480 / 480 Output: Urine 450 / 450 1000 / 1000 Other: Urine Color Yellow Light Renée Urine Appearance Clear Clear Voiding Methods Urinal Urinal Laboratory Results WBC 19.85 k/cumm (4.4-10.8) H 06/05/18 06:20 RBC 4.52 m/cumm (4.50-6.00) 06/05/18 06:20 Hgb 14.2 g/dL (13.5-17.5) 06/05/18 06:20 Hct 43.0 % (40.0-50.0) 06/05/18 06:20 MCV 95.1 fL (80-95) H 06/05/18 06:20 MCH 31.4 pg (27.0-33.0) 06/05/18 06:20 MCHC 33.0 g/dL (32.0-36.0) 06/05/18 06:20 RDW 13.4 % (11.8-14.1) 06/05/18 06:20 Plt Count 176 x1000/uL (130-400) 06/05/18 06:20 MPV 9.9 fL (8.0-11.0) 06/05/18 06:20 Immature Gran % 0.4 06/05/18 06:20 Neutrophils % 84.0 06/05/18 06:20 Lymphocytes % 5.7 06/05/18 06:20 Monocytes % 9.4 06/05/18 06:20 Eosinophils % 0.3 06/05/18 06:20 Basophils % 0.2 06/05/18 06:20 Absolute Neutrophils 16.67 k/cumm (1.2-6.7) H 06/05/18 06:20 Absolute Lymphocytes 1.13 k/cumm (1.2-3.4) L 06/05/18 06:20 Absolute Monocytes 1.87 k/cumm (0.11-0.7) H 06/05/18 06:20 Absolute Eosinophils 0.06 k/cumm (0.0-0.7) 06/05/18 06:20 Absolute Basophils 0.04 k/cumm (0.0-0.2) 06/05/18 06:20 Differential Comment Manual differential 06/05/18 06:20 RBC Morphology See below 06/05/18 06:20 Polychromasia Present 06/05/18 06:20 PT 22.4 sec (9.3-11.0) H 06/05/18 06:20 INR 2.2 (0.9-1.1) H 06/05/18 06:20 APTT 34.3 sec (21.0-31.4) H 06/04/18 17:05 Sodium 137 mmol/L (136-145) 06/05/18 06:20 Potassium 4.0 mmol/L (3.5-5.1) 06/05/18 06:20 Chloride 102 mmol/L (98-107) 06/05/18 06:20 Carbon Dioxide 25.0 mmol/L (21.0-32.0) 06/05/18 06:20 Anion Gap 10.0 mmol/L (3-11) 06/05/18 06:20 BUN 13 mg/dL (7-18) 06/05/18 06:20 Creatinine 1.02 mg/dL (0.70-1.30) 06/05/18 06:20 Estimated GFR/1.73 m2 >= 60.00 (mL/min/1.73m2) 06/05/18 06:20 Glucose 197 mg/dL (70-100) H 06/05/18 06:20 Hemoglobin A1c 7.0 % (4.5-6.2) H 06/05/18 06:20 Lactate 1.4 mmol/l (0.6-1.4) 06/04/18 17:05 Calcium 8.0 mg/dL (8.5-10.1) L 06/05/18 06:20 Total Bilirubin 1.6 mg/dL (0.2-1.0) H 06/04/18 17:05 AST 13 U/L (15-37) L 06/04/18 17:05 ALT 28 U/L (12-78) 06/04/18 17:05 Alkaline Phosphatase 103 U/L (46-116) 06/04/18 17:05 Troponin I < 0.02 ng/mL (0.00-0.06) 06/04/18 17:05 Total Protein 7.3 g/dL (6.4-8.2) 06/04/18 17:05 Albumin 3.6 g/dL (3.4-5.0) 06/04/18 17:05 TSH 0.60 uIU/mL (0.358-3.74) 06/04/18 17:05 Urine Color Yellow (Yellow) 06/04/18 17:00 Urine Clarity Cloudy 06/04/18 17:00 Urine pH 6.0 (5-8) 06/04/18 17:00 Ur Specific [place] 1.020 (1.005-1.025) 06/04/18 17:00 Urine Protein 100 mg/dL (Negative) H 06/04/18 17:00 Urine Ketones 15 mg/dL (Negative) H 06/04/18 17:00 Urine Blood Large (Negative) H 06/04/18 17:00 Urine Nitrite Positive (Negative) H 06/04/18 17:00 Urine Bilirubin Small (Negative) H 06/04/18 17:00 Urine Urobilinogen 1.0 EU/dL (Up TO 0.2) H 06/04/18 17:00 Ur Leukocyte Esterase Small (Negative) H 06/04/18 17:00 Urine RBC Not Applicable 06/04/18 17:00 Urine WBC HPF (0-5) 06/04/18 17:00 Ur Epithelial Cells Not Applicable 06/04/18 17:00 Urine Crystals Not Applicable 06/04/18 17:00 Urine Bacteria Not Applicable 06/04/18 17:00 Urine Mucus Not Applicable 06/04/18 17:00 Ur Culture Indicated? Yes 06/04/18 17:00 Urine Glucose Negative mg/dL (Negative) 06/04/18 17:00
[2018-06-05] MEDS: cefTRIAXone 2 GM/50 ML BAG IVPB (17:59)
--- NOTE | 2018-06-05 18:38 | NUR.NOTE ---
Nursing Note: At 1740 on 06/05/18, Med/collar runner took report on the pt. from the BUSINESS INFO CONSULTANT. At 1745, pt. was transferred from the ICU to Med/Surg per MD order. Pt. was settled in and oriented to his room and was given assistance to use the urinal. VS obtained; VSS. Pt. denied pain at the time of assessment. Head to toe assessment performed; see shift assessment for more information. RN will reassess as necessary.
[2018-06-05] MEDS: Acetaminophen 325 MG TAB PO (20:17)
[2018-06-06] VITALS (8 sets, daily range): BP systolic 108–129; BP diastolic 49–70; PULSE 72–95; RESP 15–20; TEMP 36.7–38.9; O2SAT 95–99
[2018-06-06] MEDS: Normal Saline 1,000 ML 150 ML IV ×2 (00:52→06:10)
[2018-06-06] MEDS: Multivitamin TAB 1 TAB PO (08:28)
[2018-06-06] MEDS: Allopurinol 100 MG TAB PO (08:28)
[2018-06-06] MEDS: Atorvastatin 20 MG TAB PO (08:28)
[2018-06-06] MEDS: Gabapentin 300 MG CAP PO ×3 (08:28→20:19)
[2018-06-06] MEDS: Insulin Aspart 300 UNITS/3 ML PEN SC ×4 (08:29→21:55)
[2018-06-06 08:35] LABS: Abs Immature Grans 0.03 k/cumm (0.0-0.09); Absolute Basophil Count 0.01 k/cumm (0.0-0.2); Absolute Eosinophil Count 0.15 k/cumm (0.0-0.7); Absolute Lymphocyte Count 0.96 k/cumm (1.2-3.4); Absolute Neutrophil Count 11.83 k/cumm (1.2-6.7); Basophils % 0.1; HCT 40.1 % (40.0-50.0); HGB 13.4 g/dL (13.5-17.5); Immature Grans % 0.2; Lymphocytes % 6.6; Mean Corp. HGB Concentration 33.4 g/dL (32.0-36.0); Mean Corpuscular Hemoglobin 31.8 pg (27.0-33.0); Mean Platelet Volume 9.6 fL (8.0-11.0); Neutrophils % 81.1; Platelet Count 182 x1000/uL (130-400); RBC 4.22 m/cumm (4.50-6.00); RBC Distribution Width 13.2 % (11.8-14.1); White Blood Cell Count 14.59 k/cumm (4.4-10.8)
[2018-06-06 08:41] LABS: Anion Gap 9.3 mmol/L (3-11); BUN 11 mg/dL (7-18); CO2 25.7 mmol/L (21.0-32.0); CREATININE 0.93 mg/dL (0.70-1.30); Calcium 8.1 mg/dL (8.5-10.1); Chloride 104 mmol/L (98-107); Glucose 122 mg/dL (70-100); Magnesium 1.7 mg/dL (1.8-2.4); Potassium 3.7 mmol/L (3.5-5.1); Sodium 139 mmol/L (136-145)
[2018-06-06 08:46] LABS: INR 1.4 (0.9-1.1); Prothrombin Time 14.4 sec (9.3-11.0)
[2018-06-06] MEDS: Magnesium Oxide 400 MG TAB PO (11:30)
[2018-06-06] MEDS: Tamsulosin 0.4 MG CAPCR PO (11:30)
[2018-06-06] MEDS: Warfarin 1 MG TAB PO (11:30)
[2018-06-06] MEDS: POTASSIUM CHLORIDE 20 MEQ, POTASSIUM CHLORIDE 10 MEQ 30 MEQ PO (11:30)
[2018-06-06] MEDS: Normal Saline 1,000 ML 100 ML IV (12:57)
[2018-06-06] MEDS: MEROPENEM 1 GM in Normal Saline 100 ML IVPB ×2 (14:25→21:55)
--- NOTE | 2018-06-06 17:28 | PDOC.CMPRO ---
Care Management Progress Note Jer was sitting up watching TV. Stated that the doctor will go over the results with him tomorrow. Feeling a bit stressed about caring for his father and sister as well as having to reclaim some property that that the persn has not been able to keep up with the payments. Has a frequent cough and would like something to help withthat. Nursing notified of the request. A: 63 yo male admitted for prosatitis P: Jer will return home when medically cleared for discharge. No services needed.
--- NOTE | 2018-06-06 18:12 | PGE_ITS ---
Date of Service Date of service: 06/06/18 Time of Service: 18:09 Assessment and Plan (1) Sepsis: Current visit: Yes Status: Acute Evidence of Tachycardia and Leukocytosis with Source and Bacteremia. Appears resolved. Clinically suspected Acute Prostatitis based on symptoms, but patient also with 6mm non-obstructing stone in place. As per discussion with Urology at [facility] with prior hospitalist, since stone is nonobstructing no surgical intervention indicated - will also await return of local Urologist. Patient with growht of GNR on Urine Culture, also with evidence of GNR ba cteremia, along with continued fevers last night. Will change patient to broader coverage for hospitalized patient with sepsis, not immunosuppressed, with single broad spectrum agent with antipseudomonal coverage utilizing Meropenem. Await speciation and sensitivities of blood and urine cultures. Also started a-linda to facilitate passage of stone. (2) Nephrolithiasis: Current visit: Yes Status: Chronic 6mm nonobsructing right renal calculus.Treatment as above. (3) Type 2 diabetes mellitus without complication, without long-term current use of insulin: Current visit: No Status: Chronic Continue sliding scale coverage. Not on any home regimen. (4) History of pulmonary embolism: Current visit: Yes Status: Acute Noted. Continue Coumadin and monitor daily INR. (5) DVT prophylaxis: Current visit: Yes Status: Acute On therapeutic anticoagulation. Initiate PPI therapy for GI Prophylaxis as well. Subjective Interval history since last seen: 63-year-old man with a prior history of Diabetes, admitted from [facility] Emergency Department with a diagnosis of Acute Prostatitis and Sepsis. Mr. Klein has past medical history significant for DM, dyslipidemia, Obesity, Gout, and prior PE. He presented to the ED with a 2-day history of increased urinary urgency and urge incontinence, with subsequent development of rigors on the day of admission. He also endorsed increasing fatigue and worsening appetite. Initial work-up was remarkable for leukocytosis, abnormal urinalysis with evidence of Pyuria, and imaging showing evidence of prostatic enlargement by CT, and potential 6mm nonobstructing right renal calculus by ultrasound. Ct of the Chest and subsequent CXR were negative. Patient was referred for admission for further evaluation and treatment. Since admission Mr. Klein's blood pressure and heart rate have both improved, and he feels subjectively better. He was however febrile again last night, and had an elevated temperature again this morning. His Blood Culture is positive for Growth of a GNR. No other events reported. Exam Narrative Exam Narrative: General: Patient appears comfortable, AAOX3, NAD Neck: Supple CV: Regular, nontachycardic, S1S2, No rubs, murmurs, or gallops. Pulmonary: Clear to auscultation bilaterally, no crackles, wheezing, or rhonchi Abdomen: + Bowel Sounds, soft, nontender, nondistended Vascular: +1 b/l LE edema Psych: Normal mood and affect. Objective Objective Clinical Data: Abnormal lab results 06/06/18 06/06/18 06/06/18 Range/Units 08:15 08:15 08:15 WBC 14.59 H (4.4-10.8) k/cumm RBC 4.22 L (4.50-6.00) m/cumm Hgb 13.4 L (13.5-17.5) g/dL Absolute Neutrophils 11.83 H (1.2-6.7) k/cumm Absolute Lymphocytes 0.96 L (1.2-3.4) k/cumm Absolute Monocytes 1.60 H (0.11-0.7) k/cumm PT 14.4 H D (9.3-11.0) sec INR 1.4 H D (0.9-1.1) Glucose 122 H D (70-100) mg/dL Calcium 8.1 L (8.5-10.1) mg/dL Magnesium 1.7 L (1.8-2.4) mg/dL Vital Signs Temperature 37.0 C 06/06/18 16:20 Temperature Source Tympanic 06/06/18 16:20 Pulse 76 06/06/18 16:20 Pulse Rhythm Regular 06/06/18 07:28 Pulse 82 06/05/18 10:40 Respiratory Rate 17 06/06/18 16:20 Respiratory Effort Non-Labored 06/06/18 07:28 Respiratory Depth Normal 06/06/18 07:28 Respiratory Pattern Normal 06/06/18 07:28 Blood Pressure 120/61 06/06/18 16:20 Blood Pressure Mean 78 06/05/18 17:12 Blood Pressure Position Sitting 06/05/18 08:00 Pulse Oximetry 99 06/06/18 16:20 Oxygen Delivery Method Room Air 06/06/18 16:20 Oxygen Flow Rate 0 06/06/18 16:20 Pain Level 0 06/06/18 11:45 Comment 06/06/18 03:30 Intake & Output 06/05/18 06/06/18 06/06/18 23:59 11:59 23:59 Intake Total 1577.5 / 3942.5 3787.5 / 5736.667 1949.167 / 5736.667 Output Total 2200 / 3600 1600 / 3200 1600 / 3200 Balance -622.5 / 342.5 2187.5 / 2536.667 349.167 / 2536.667 Weight 108.9 kg Intake: IV 1027.5 / 2912.5 1997.5 / 3226.667 1229.167 / 3226.667 Oral 550 / 1030 1790 / 2510 720 / 2510 Output: Urine 2200 / 3600 1600 / 3200 1600 / 3200 Other: Urine Color Pale Yellow Yellow Yellow Urine Appearance Clear Clear Clear Urine Odor None None None Comment Incontinent x1 of a large amount of urine in the briefs/Void x1 in the urinal. Briefs were changed. Void x1 in the urinal. Void x1 in the urinal. Stool Size Moderate Moderate Stool Characteristics Soft Soft Formed Formed Brown Brown Voiding Methods Urinal Urinal Urinal Laboratory Results WBC 14.59 k/cumm (4.4-10.8) H 06/06/18 08:15 RBC 4.22 m/cumm (4.50-6.00) L 06/06/18 08:15 Hgb 13.4 g/dL (13.5-17.5) L 06/06/18 08:15 Hct 40.1 % (40.0-50.0) 06/06/18 08:15 MCV 95.0 fL (80-95) 06/06/18 08:15 MCH 31.8 pg (27.0-33.0) 06/06/18 08:15 MCHC 33.4 g/dL (32.0-36.0) 06/06/18 08:15 RDW 13.2 % (11.8-14.1) 06/06/18 08:15 Plt Count 182 x1000/uL (130-400) 06/06/18 08:15 MPV 9.6 fL (8.0-11.0) 06/06/18 08:15 Immature Gran % 0.2 06/06/18 08:15 Neutrophils % 81.1 06/06/18 08:15 Lymphocytes % 6.6 06/06/18 08:15 Monocytes % 11.0 06/06/18 08:15 Eosinophils % 1.0 06/06/18 08:15 Basophils % 0.1 06/06/18 08:15 Absolute Neutrophils 11.83 k/cumm (1.2-6.7) H 06/06/18 08:15 Absolute Lymphocytes 0.96 k/cumm (1.2-3.4) L 06/06/18 08:15 Absolute Monocytes 1.60 k/cumm (0.11-0.7) H 06/06/18 08:15 Absolute Eosinophils 0.15 k/cumm (0.0-0.7) 06/06/18 08:15 Absolute Basophils 0.01 k/cumm (0.0-0.2) 06/06/18 08:15 Differential Comment Manual differential 06/05/18 06:20 RBC Morphology See below 06/05/18 06:20 Polychromasia Present 06/05/18 06:20 PT 14.4 sec (9.3-11.0) H D 06/06/18 08:15 INR 1.4 (0.9-1.1) H D 06/06/18 08:15 APTT 34.3 sec (21.0-31.4) H 06/04/18 17:05 Sodium 139 mmol/L (136-145) 06/06/18 08:15 Potassium 3.7 mmol/L (3.5-5.1) 06/06/18 08:15 Chloride 104 mmol/L (98-107) 06/06/18 08:15 Carbon Dioxide 25.7 mmol/L (21.0-32.0) 06/06/18 08:15 Anion Gap 9.3 mmol/L (3-11) 06/06/18 08:15 BUN 11 mg/dL (7-18) 06/06/18 08:15 Creatinine 0.93 mg/dL (0.70-1.30) 06/06/18 08:15 Estimated GFR/1.73 m2 >= 60.00 (mL/min/1.73m2) 06/06/18 08:15 Glucose 122 mg/dL (70-100) H D 06/06/18 08:15 Hemoglobin A1c 7.0 % (4.5-6.2) H 06/05/18 06:20 Lactate 1.4 mmol/l (0.6-1.4) 06/04/18 17:05 Calcium 8.1 mg/dL (8.5-10.1) L 06/06/18 08:15 Magnesium 1.7 mg/dL (1.8-2.4) L 06/06/18 08:15 Total Bilirubin 1.6 mg/dL (0.2-1.0) H 06/04/18 17:05 AST 13 U/L (15-37) L 06/04/18 17:05 ALT 28 U/L (12-78) 06/04/18 17:05 Alkaline Phosphatase 103 U/L (46-116) 06/04/18 17:05 Troponin I < 0.02 ng/mL (0.00-0.06) 06/04/18 17:05 Total Protein 7.3 g/dL (6.4-8.2) 06/04/18 17:05 Albumin 3.6 g/dL (3.4-5.0) 06/04/18 17:05 TSH 0.60 uIU/mL (0.358-3.74) 06/04/18 17:05 Urine Color Yellow (Yellow) 06/04/18 17:00 Urine Clarity Cloudy 06/04/18 17:00 Urine pH 6.0 (5-8) 06/04/18 17:00 Ur Specific [place] 1.020 (1.005-1.025) 06/04/18 17:00 Urine Protein 100 mg/dL (Negative) H 06/04/18 17:00 Urine Ketones 15 mg/dL (Negative) H 06/04/18 17:00 Urine Blood Large (Negative) H 06/04/18 17:00 Urine Nitrite Positive (Negative) H 06/04/18 17:00 Urine Bilirubin Small (Negative) H 06/04/18 17:00 Urine Urobilinogen 1.0 EU/dL (Up TO 0.2) H 06/04/18 17:00 Ur Leukocyte Esterase Small (Negative) H 06/04/18 17:00 Urine RBC Not Applicable 06/04/18 17:00 Urine WBC HPF (0-5) 06/04/18 17:00 Ur Epithelial Cells Not Applicable 06/04/18 17:00 Urine Crystals Not Applicable 06/04/18 17:00 Urine Bacteria Not Applicable 06/04/18 17:00 Urine Mucus Not Applicable 06/04/18 17:00 Ur Culture Indicated? Yes 06/04/18 17:00 Urine Glucose Negative mg/dL (Negative) 06/04/18 17:00
[2018-06-06] MEDS: Cetirizine 10 MG TAB PO (18:31)
[2018-06-06] MEDS: guaiFENesin/D-METHORPHAN HB 5 ML CUP 10 ML PO (20:19)
[2018-06-06] MEDS: Normal Saline Flush 10 ML SYR IVP (20:19)
[2018-06-06] MEDS: Acetaminophen 325 MG TAB PO (20:19)
[2018-06-06] MEDS: Pantoprazole 40 MG VIAL IVP (20:19)
[2018-06-06] MEDS: Normal Saline 1,000 ML 75 ML IV (23:48)
[2018-06-07 03:58] VITALS: BP 130/69; PULSE 77; RESP 18; TEMP 37.7; O2SAT 96
[2018-06-07] MEDS: MEROPENEM 1 GM in Normal Saline 100 ML IVPB ×2 (05:53→14:50)
[2018-06-07 07:20] VITALS: BP 141/78; PULSE 74; RESP 18; TEMP 36; O2SAT 97
[2018-06-07 07:53] LABS: Abs Immature Grans 0.04 k/cumm (0.0-0.09); Absolute Basophil Count 0.02 k/cumm (0.0-0.2); Absolute Eosinophil Count 0.21 k/cumm (0.0-0.7); Absolute Lymphocyte Count 0.86 k/cumm (1.2-3.4); Absolute Monocyte Count 1.67 k/cumm (0.11-0.7); Basophils % 0.2; Eosinophils % 1.9; HCT 37.4 % (40.0-50.0); HGB 12.5 g/dL (13.5-17.5); Immature Grans % 0.4; Lymphocytes % 7.6; Mean Corp. HGB Concentration 33.4 g/dL (32.0-36.0); Mean Corpuscular Hemoglobin 31.5 pg (27.0-33.0); Mean Corpuscular Volume 94.2 fL (80-95); Mean Platelet Volume 9.7 fL (8.0-11.0); Monocytes % 14.8; Neutrophils % 75.1; Platelet Count 199 x1000/uL (130-400); RBC 3.97 m/cumm (4.50-6.00); White Blood Cell Count 11.29 k/cumm (4.4-10.8)
[2018-06-07 07:55] LABS: Absolute Neutrophil Count 8.48 k/cumm (1.2-6.7)
[2018-06-07 07:58] LABS: Anion Gap 8.9 mmol/L (3-11); BUN 10 mg/dL (7-18); CO2 25.1 mmol/L (21.0-32.0); CREATININE 0.91 mg/dL (0.70-1.30); Chloride 104 mmol/L (98-107); Glucose 128 mg/dL (70-100); Magnesium 1.7 mg/dL (1.8-2.4); Potassium 3.7 mmol/L (3.5-5.1); Sodium 138 mmol/L (136-145)
[2018-06-07 08:04] LABS: Prothrombin Time 12.5 sec (9.3-11.0)
[2018-06-07 08:12] LABS: INR 1.2 (0.9-1.1)
[2018-06-07] MEDS: Multivitamin TAB 1 TAB PO (09:24)
[2018-06-07] MEDS: Atorvastatin 20 MG TAB PO (09:24)
[2018-06-07] MEDS: Allopurinol 100 MG TAB PO (09:24)
[2018-06-07] MEDS: Tamsulosin 0.4 MG CAPCR PO (09:24)
[2018-06-07] MEDS: Gabapentin 300 MG CAP PO ×3 (09:24→19:50)
[2018-06-07] MEDS: Insulin Aspart 300 UNITS/3 ML PEN SC ×5 (09:28→21:26)
[2018-06-07] MEDS: Normal Saline Flush 10 ML SYR IVP ×2 (09:40→19:50)
[2018-06-07] MEDS: Magnesium Oxide 400 MG TAB PO (09:59)
[2018-06-07] MEDS: POTASSIUM CHLORIDE 20 MEQ, POTASSIUM CHLORIDE 10 MEQ 30 MEQ PO (09:59)
[2018-06-07] MEDS: Normal Saline 1,000 ML 75 ML IV (10:00)
[2018-06-07 11:29] VITALS: BP 145/73; PULSE 72; RESP 18; TEMP 36.2; O2SAT 96
[2018-06-07 16:08] VITALS: BP 118/65; PULSE 76; RESP 19; TEMP 37.3; O2SAT 99
--- NOTE | 2018-06-07 16:13 | PDOC.CMPRO ---
Care Management Progress Note S/O: Jer was sitting up watching TV. States he is feeling a little better today A: 63 yo male admitted for prostatitis. Urology consult for Friday to evaluate a R renal calculus. P: Jer will return home when medically cleared for discharge. No services needed.
--- NOTE | 2018-06-07 17:39 | W.PM.PROGNOT ---
Date of Service Date of service: 06/07/18 Time of Service: 17:40 Assessment and Plan (1) Sepsis: Current visit: Yes Status: Acute Evidence of Tachycardia and Leukocytosis with Source and Bacteremia. Appears resolved. Clinically suspect Acute Prostatitis based on symptoms, but patient also with 6mm non-obstructing stone in place. As per discussion with Urology at [facility] with prior hospitalist, since stone is nonobstructing no surgical intervention indicated. Patient with growth of GNR speciated to Proivdencia Rettgeri on Urine and Blood Culture, with repeat blood culture negative - sensitive to Fluoroquinolone therapy. Will change patient to IV Levofloxacin with plans for a 14 day course of GNR bacteremia with first episode of potential prostatitis. This was discussed with ID at [facility], with agreement on current management plan. Also started a-linda to facilitate passage of stone. If however patient experiences another bout of bacteremia or infection, will require addressing of stone as potential source. (2) Nephrolithiasis: Current visit: Yes Status: Chronic 6mm nonobsructing right renal calculus.Treatment as above. (3) Type 2 diabetes mellitus without complication, without long-term current use of insulin: Current visit: No Status: Chronic Continue sliding scale coverage. Not on any home regimen. (4) History of pulmonary embolism: Current visit: Yes Status: Acute Noted. Continue Coumadin and monitor daily INR. (5) DVT prophylaxis: Current visit: Yes Status: Acute On therapeutic anticoagulation but with significantly subtherapeutic INR. Given history of PE will initiate SC Enoxaparin until INR is therapeutic. Also on PPI therapy for GI Prophylaxis. Subjective Interval history since last seen: 63-year-old man with a prior history of Diabetes, admitted from [facility] Emergency Department with a diagnosis of Acute Prostatitis and Sepsis. Mr. Klein has past medical history significant for DM, dyslipidemia, Obesity, Gout, and prior PE. He presented to the ED with a 2-day history of increased urinary urgency and urge incontinence, with subsequent development of rigors on the day of admission. He also endorsed increasing fatigue and worsening appetite. Initial work-up was remarkable for leukocytosis, abnormal urinalysis with evidence of Pyuria, and imaging showing evidence of prostatic enlargement by CT, and potential 6mm nonobstructing right renal calculus by ultrasound. Ct of the Chest and subsequent CXR were negative. Patient was referred for admission for further evaluation and treatment. Since admission Mr. Klein's blood pressure and heart rate have both improved, and he feels subjectively better. However, he continued to be febrile again last night. His Blood Culture is positive for Growth of a GNR, speciated to Providencia Rettgeri. No other events reported. Exam Narrative Exam Narrative: General: Patient appears comfortable, AAOX3, NAD Neck: Supple CV: Regular, nontachycardic, S1S2, No rubs, murmurs, or gallops. Pulmonary: Clear to auscultation bilaterally, no crackles, wheezing, or rhonchi Abdomen: + Bowel Sounds, soft, nontender, nondistended Vascular: +1 b/l LE edema Psych: Normal mood and affect. Objective Objective Clinical Data: Abnormal lab results 06/07/18 06/07/18 06/07/18 Range/Units 07:30 07:30 07:30 WBC 11.29 H (4.4-10.8) k/cumm RBC 3.97 L (4.50-6.00) m/cumm Hgb 12.5 L (13.5-17.5) g/dL Hct 37.4 L (40.0-50.0) % Absolute Neutrophils 8.48 H (1.2-6.7) k/cumm Absolute Lymphocytes 0.86 L (1.2-3.4) k/cumm Absolute Monocytes 1.67 H (0.11-0.7) k/cumm PT 12.5 H (9.3-11.0) sec INR 1.2 H (0.9-1.1) Glucose 128 H (70-100) mg/dL Calcium 8.0 L (8.5-10.1) mg/dL Magnesium 1.7 L (1.8-2.4) mg/dL Vital Signs Temperature 37.3 C 06/07/18 16:08 Temperature Source Tympanic 06/07/18 16:08 Pulse 76 06/07/18 16:08 Pulse Rhythm Regular 06/06/18 20: Pulse 82 06/05/18 10:40 Respiratory Rate 06/07/18 16:08 Respiratory Effort Non-Labored 06/06/18 20:19 Respiratory Depth Normal 06/06/18 20:19 Respiratory Pattern Normal 06/06/18 20:19 Blood Pressure 118/65 06/07/18 16:08 Blood Pressure Mean 78 06/05/18 17:12 Blood Pressure Position Sitting 06/05/18 08:00 Pulse Oximetry 99 06/07/18 16:08 Oxygen Delivery Method Room Air 06/07/18 16:08 Oxygen Flow Rate 0 06/07/18 16:08 Pain Level 0 06/07/18 07:43 Comment 06/06/18 03:30 Intake & Output 06/06/18 06/07/18 06/07/18 23:59 11:59 23:59 Intake Total 3069.584 / 6857.084 1551.25 / 3373.75 1822.5 / 3373.75 Output Total 2500 / 4100 2850 / 4350 1500 / 4350 Balance 569.584 / 2757.084 -1298.75 / -976.25 322.5 / -976.25 Weight 110.4 kg Intake: IV 2049.584 / 4047.084 671.25 / 1133.75 462.5 / 1133.75 Oral 1020 / 2810 880 / 2240 1360 / 2240 Output: Urine 2500 / 4100 2850 / 4350 1500 / 4350 Other: Urine Color Yellow Yellow Yellow Urine Appearance Clear Clear Clear Urine Odor None None None Comment Void x1 in the urinal. Void x1 in the urinal. Void x2 in the urinal. Stool Size Moderate Stool Characteristics Soft Formed Brown Voiding Methods Urinal Urinal Urinal Laboratory Results WBC 11.29 k/cumm (4.4-10.8) H 06/07/18 07:30 RBC 3.97 m/cumm (4.50-6.00) L 06/07/18 07:30 Hgb 12.5 g/dL (13.5-17.5) L 06/07/18 07:30 Hct 37.4 % (40.0-50.0) L 06/07/18 07:30 MCV 94.2 fL (80-95) 06/07/18 07:30 MCH 31.5 pg (27.0-33.0) 06/07/18 07:30 MCHC 33.4 g/dL (32.0-36.0) 06/07/18 07:30 RDW 13.0 % (11.8-14.1) 06/07/18 07:30 Plt Count 199 x1000/uL (130-400) 06/07/18 07:30 MPV 9.7 fL (8.0-11.0) 06/07/18 07:30 Immature Gran % 0.4 06/07/18 07:30 Neutrophils % 75.1 06/07/18 07:30 Lymphocytes % 7.6 06/07/18 07:30 Monocytes % 14.8 06/07/18 07:30 Eosinophils % 1.9 06/07/18 07:30 Basophils % 0.2 06/07/18 07:30 Absolute Neutrophils 8.48 k/cumm (1.2-6.7) H 06/07/18 07:30 Absolute Lymphocytes 0.86 k/cumm (1.2-3.4) L 06/07/18 07:30 Absolute Monocytes 1.67 k/cumm (0.11-0.7) H 06/07/18 07:30 Absolute Eosinophils 0.21 k/cumm (0.0-0.7) 06/07/18 07:30 Absolute Basophils 0.02 k/cumm (0.0-0.2) 06/07/18 07:30 Differential Comment Manual differential 06/05/18 06:20 RBC Morphology See below 06/05/18 06:20 Polychromasia Present 06/05/18 06:20 PT 12.5 sec (9.3-11.0) H 06/07/18 07:30 INR 1.2 (0.9-1.1) H 06/07/18 07:30 APTT 34.3 sec (21.0-31.4) H 06/04/18 17:05 Sodium 138 mmol/L (136-145) 06/07/18 07:30 Potassium 3.7 mmol/L (3.5-5.1) 06/07/18 07:30 Chloride 104 mmol/L (98-107) 06/07/18 07:30 Carbon Dioxide 25.1 mmol/L (21.0-32.0) 06/07/18 07:30 Anion Gap 8.9 mmol/L (3-11) 06/07/18 07:30 BUN 10 mg/dL (7-18) 06/07/18 07:30 Creatinine 0.91 mg/dL (0.70-1.30) 06/07/18 07:30 Estimated GFR/1.73 m2 >= 60.00 (mL/min/1.73m2) 06/07/18 07:30 Glucose 128 mg/dL (70-100) H 06/07/18 07:30 Hemoglobin A1c 7.0 % (4.5-6.2) H 06/05/18 06:20 Lactate 1.4 mmol/l (0.6-1.4) 06/04/18 17:05 Calcium 8.0 mg/dL (8.5-10.1) L 06/07/18 07:30 Magnesium 1.7 mg/dL (1.8-2.4) L 06/07/18 07:30 Total Bilirubin 1.6 mg/dL (0.2-1.0) H 06/04/18 17:05 AST 13 U/L (15-37) L 06/04/18 17:05 ALT 28 U/L (12-78) 06/04/18 17:05 Alkaline Phosphatase 103 U/L (46-116) 06/04/18 17:05 Troponin I < 0.02 ng/mL (0.00-0.06) 06/04/18 17:05 Total Protein 7.3 g/dL (6.4-8.2) 06/04/18 17:05 Albumin 3.6 g/dL (3.4-5.0) 06/04/18 17:05 TSH 0.60 uIU/mL (0.358-3.74) 06/04/18 17:05 Urine Color Yellow (Yellow) 06/04/18 17:00 Urine Clarity Cloudy 06/04/18 17:00 Urine pH 6.0 (5-8) 06/04/18 17:00 Ur Specific [place] 1.020 (1.005-1.025) 06/04/18 17:00 Urine Protein 100 mg/dL (Negative) H 06/04/18 17:00 Urine Ketones 15 mg/dL (Negative) H 06/04/18 17:00 Urine Blood Large (Negative) H 06/04/18 17:00 Urine Nitrite Positive (Negative) H 06/04/18 17:00 Urine Bilirubin Small (Negative) H 06/04/18 17:00 Urine Urobilinogen 1.0 EU/dL (Up TO 0.2) H 06/04/18 17:00 Ur Leukocyte Esterase Small (Negative) H 06/04/18 17:00 Urine RBC Not Applicable 06/04/18 17:00 Urine WBC HPF (0-5) 06/04/18 17:00 Ur Epithelial Cells Not Applicable 06/04/18 17:00 Urine Crystals Not Applicable 06/04/18 17:00 Urine Bacteria Not Applicable 06/04/18 17:00 Urine Mucus Not Applicable 06/04/18 17:00 Ur Culture Indicated? Yes 06/04/18 17:00 Urine Glucose Negative mg/dL (Negative) 06/04/18 17:00 Objective Narrative Objective Narrative: Blood Culture ( Age => 10 Yrs) Preliminary 06/07/18-62906/05/18 Aerobic bottle positive; gram stain shows GRAM NEGATIVE RODS. Gram stain results called to and read back from TEMITOPE CARDENAS RN/ICU at 0956 by [email or web address].[email or web address] Organism 1 PROVIDENCIA RETTGERI Prov rett RESULT Ampicillin R Ampicillin/Sulbactam I Cefazolin R Ceftazidime S CEFTRIAXONE S Ciprofloxacin S Gentamicin S Levofloxacin S Tobramycin S Piperacillin/Tazobactam S Urine Culture Final 06/07/18-625 Day 1 Result ISOLATES BELOW ISOLATE 1 COLONY COUNT 50,000 - 100,000 COLONIES/ML ISOLATE 1 APPEARANCE Gram Negative Luis ISOLATE 1 ACTION ID AND SUSCEPTIBILITY TO FOLLOW ISOLATE 2 COLONY COUNT 10,000 - 50,000 COLONIES/ML ISOLATE 2 APPEARANCE Mixed Gram Positive Khalif Day 2 Result ISOLATES BELOW ISOLATE 1 COLONY COUNT 50,000 - 100,000 COLONIES/ML ISOLATE 1 APPEARANCE Gram Negative Luis ISOLATE 1 ACTION ID AND SUSCEPTIBILITY TO FOLLOW ISOLATE 2 COLONY COUNT 50,000 - 100,000 COLONIES/ML ISOLATE 2 APPEARANCE Mixed Gram Positive Khalif Organism 1 PROVIDENCIA RETTGERI COLONY COUNT 50,000 - 100,000 COLONIES/ML Organism 2 GRAM POSITIVE KHALIF,MIXED COLONY COUNT 50,000 - 100,000 COLONIES/ML Prov rett RESULT Ampicillin R Ampicillin/Sulbactam S Cefazolin R Ceftazidime S CEFTRIAXONE S Ciprofloxacin S Gentamicin S Nitrofurantoin R Levofloxacin S Tobramycin S Trimethoprim/Sulfamethoxazole S Piperacillin/Tazobactam S
[2018-06-07] MEDS: Enoxaparin 40 MG/0.4 ML SYR SC (18:27)
[2018-06-07] MEDS: levoFLOXacin 750 MG/150 ML BAG 100 MG IVPB (18:27)
[2018-06-07] MEDS: Warfarin 5 MG TAB PO (19:49)
[2018-06-07] MEDS: Pantoprazole 40 MG VIAL IVP (19:50)
[2018-06-07 23:53] VITALS: BP 109/61; PULSE 73; RESP 18; TEMP 36.5; O2SAT 94
[2018-06-08] MEDS: Normal Saline 1,000 ML 75 ML IV (01:34)
[2018-06-08 04:25] VITALS: BP 115/65; PULSE 70; RESP 13; TEMP 37.8; O2SAT 94
[2018-06-08 07:42] VITALS: BP 119/75; PULSE 78; RESP 18; TEMP 36.1; O2SAT 97
[2018-06-08] MEDS: Gabapentin 300 MG CAP PO ×3 (07:56→19:28)
[2018-06-08] MEDS: Tamsulosin 0.4 MG CAPCR PO (07:57)
[2018-06-08] MEDS: Atorvastatin 20 MG TAB PO (07:57)
[2018-06-08] MEDS: Multivitamin TAB 1 TAB PO (07:57)
[2018-06-08] MEDS: Allopurinol 100 MG TAB PO (07:57)
[2018-06-08] MEDS: Insulin Aspart 300 UNITS/3 ML PEN SC ×4 (08:20→21:41)
[2018-06-08 08:32] LABS: Abs Immature Grans 0.06 k/cumm (0.0-0.09); Absolute Basophil Count 0.02 k/cumm (0.0-0.2); Absolute Eosinophil Count 0.51 k/cumm (0.0-0.7); Absolute Lymphocyte Count 1.01 k/cumm (1.2-3.4); Absolute Monocyte Count 1.42 k/cumm (0.11-0.7); Absolute Neutrophil Count 6.81 k/cumm (1.2-6.7); Basophils % 0.2; Eosinophils % 5.2; HCT 38.4 % (40.0-50.0); HGB 12.8 g/dL (13.5-17.5); Immature Grans % 0.6; Lymphocytes % 10.3; Mean Corp. HGB Concentration 33.3 g/dL (32.0-36.0); Mean Corpuscular Hemoglobin 31.6 pg (27.0-33.0); Mean Corpuscular Volume 94.8 fL (80-95); Mean Platelet Volume 9.9 fL (8.0-11.0); Monocytes % 14.4; Neutrophils % 69.3; Platelet Count 241 x1000/uL (130-400); RBC 4.05 m/cumm (4.50-6.00); RBC Distribution Width 12.8 % (11.8-14.1); White Blood Cell Count 9.83 k/cumm (4.4-10.8)
[2018-06-08 08:36] LABS: INR 1.5 (0.9-1.1); Prothrombin Time 14.8 sec (9.3-11.0)
[2018-06-08 08:46] LABS: Anion Gap 6.8 mmol/L (3-11); BUN 10 mg/dL (7-18); CO2 27.2 mmol/L (21.0-32.0); CREATININE 0.93 mg/dL (0.70-1.30); Calcium 8.5 mg/dL (8.5-10.1); Chloride 103 mmol/L (98-107); Glucose 135 mg/dL (70-100); Magnesium 1.7 mg/dL (1.8-2.4); Sodium 137 mmol/L (136-145)
--- NOTE | 2018-06-08 10:00 | PDOC.CMPRO ---
Care Management Progress Note S/O: Jer was sitting up in his chair, pleasant in interaction, forthcoming with information. He discussed the weather and living out in [place], he used good humor to engage fully and shared no concerns at this time. Per MD, Jer may be ready for discharge as soon as tomorrow. A: 63 yo male admitted to [facility] 06/04/18 for Prostatitis. P: Jer will return home when medically cleared for discharge, no additional services anticipated at this time. Jer will transport via private vehicle.
--- NOTE | 2018-06-08 10:05 | CMPROGNOTE_ITS ---
Care Management Progress Note S/O: Jer was sitting up in his chair, pleasant in interaction, forthcoming with information. He discussed the weather and living out in [place], he used good humor to engage fully and shared no concerns at this time. Per MD, Jer may be ready for discharge as soon as tomorrow. A: 63 yo male admitted to [facility] 06/04/18 for Prostatitis. P: Jer will return home when medically cleared for discharge, no additional services anticipated at this time. Jer will transport via private vehicle.
[2018-06-08] MEDS: Magnesium Oxide 400 MG TAB PO (10:31)
--- NOTE | 2018-06-08 13:56 | W.UROLOGYCON ---
Date of service: 06/08/18 Time of Service: 13:56 History of Present Illness Chief Complaint: Urosepsis Narrative: This is a 63-year-old gentleman who was admitted through the hospital last week with sepsis related to his urinary tract. He developed fevers, chills and Reiger's for about 24 hours before his presentation. He did have some dysuria but his biggest voiding change involved incontinence. He did not notice any blood in his urine. He did not go into urinary retention. On admission, he was found to have providencia both his blood and urine. He has been improving with appropriate antibiotics. At the time of admission, he had a CT scan with contrast. He had no hydronephrosis and no stones identified on CAT scan. Later on during the hospitalization, he had a renal ultrasound which raises the question of a right upper pole nonobstructing kidney stone. There was some concern that his stone might be the source of infection and that he might require surgical treatment. He is never had kidney stones previously. He has no history of hyperparathyroid disease. he does have a history of gout. Review of Systems Review of Systems No fevers or chills at this time - present on admission No vision change or dysphasia No thyroid disease No shortness of breath, cough or hemoptysis. Hx PE No chest pain or palpitations No nausea, vomiting, hepatitis, ulcers, jaundice, diarrhea or constipation No seizures, strokes Bruises easily from chronic anticoagulants No gout flare up PFSH Medical History Type 2 diabetes, diet controlled (Chronic) Gout, unspecified (Chronic) Post herpetic neuralgia (Chronic) h/o elevated psa (Chronic) Pulmonary embolism (Resolved 10/16/13) Surgical History thyroid biopsy (Resolved 11/15/13) Family History Mother Essential hypertension Stroke Father Spinal stenosis Other Personal history of malignant neoplasm Social History Smoking/Tobacco Use Status: Never Alcohol Intake: former Year quit: 2008 Drug use: Never Substance use type: does not use Adopted: No Caregiver/Support person: No Foster care: No Household members: family Housing: house Number of Children: 0 current occupation: used to work in [employer] Pets and animals: Yes What type of physical activity do you participate in: none and other Details: shoveling snow Duration: 45-60 minutes/day Seatbelt use: always Drive intox or ride w/intox commercial driver: No Water heater temp set <120 deg: No Working smoke detector in home: No Fire extinguisher in home: Yes Carbon monox detector in home: No Do you feel safe at home: Yes Do you feel safe in your relationship?: Yes Victim of physical abuse: No Victim of emotional abuse: No Victim of sexual abuse: No Exam Narrative Exam Narrative: He is a pleasant, obese gentleman sitting at his bedside. He does not appear septic or toxic. His vital signs are documented elsewhere. His abdomen is obese but soft with no masses. There is no CVA tenderness. There is no peritoneal signs. He is awake, alert oriented. His labs and imaging studies are all reviewed. Results Last Vital Signs Temp 36.1 C L 06/08/18 07:42 Pulse 78 06/08/18 07:42 Resp 18 06/08/18 07:42 BP 119/75 06/08/18 07:42 Pulse Ox 97 06/08/18 07:42 Labs : 06/08/18 07:45 06/08/18 07:45 Laboratory Results - last 24 hr 06/08/18 06/08/18 06/08/18 07:45 07:45 07:45 WBC 9.83 RBC 4.05 L Hgb 12.8 L Hct 38.4 L MCV 94.8 MCH 31.6 MCHC 33.3 RDW 12.8 Plt Count 241 MPV 9.9 Immature Gran % 0.6 Neutrophils % 69.3 Lymphocytes % 10.3 Monocytes % 14.4 Eosinophils % 5.2 Basophils % 0.2 Absolute Neutrophils 6.81 H Absolute Lymphocytes 1.01 L Absolute Monocytes 1.42 H Absolute Eosinophils 0.51 Absolute Basophils 0.02 PT 14.8 H INR 1.5 H Sodium 137 Potassium 4.0 Chloride 103 Carbon Dioxide 27.2 Anion Gap 6.8 BUN 10 Creatinine 0.93 Estimated GFR/1.73 m2 >= 60.00 Glucose 135 H Calcium 8.5 Magnesium 1.7 L Assessment and Plan (1) Sepsis: Current visit: Yes Status: Acute I was able to review both the CT scan and the renal ultrasound with the radiology providers. They confirmed that that the area in question on ultrasound does not actually correlate to a stone on CT scan. 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 He certainly does not require any surgery at this point in time. He does however require antibiotic treatment and urology follow-up as he finishes his antibiotic. I agree with switching to oral antibiotics as long as he remains afebrile. I will plan on a follow-up appointment as he is completing his antibiotic regimen. We can check his urine at that time to make sure the infection has totally cleared and to come up with strategies to help prevent future infections.
--- NOTE | 2018-06-08 15:47 | PGE_ITS ---
Date of Service Date of service: 06/08/18 Time of Service: 15:46 Assessment and Plan (1) Sepsis: Current visit: Yes Status: Acute Evidence of Tachycardia and Leukocytosis with Source and Bacteremia. Appears resolved. Clinically suspect Acute Prostatitis based on symptoms, but patient also with 6mm non-obstructing stone in place. As per discussion with Urology at [facility] with prior hospitalist, since stone is nonobstructing no surgical intervention indicated. Patient with growth of GNR speciated to Proivdencia Rettgeri on Urine and Blood Culture, with repeat blood culture on 06/06 negative X48 hours - sensitive to Fluoroquinolone therapy. Changed patient to IV Levofloxacin with plans for a 14 day course of GNR bacteremia with first episode of potential prostatitis (Currently day #4 total of antibiotic therapy). This was discussed with ID at [facility], with agreement on current management plan. Also started a-linda to facilitate passage of stone. If however patient experiences another bout of bacteremia or infection, will require addressing of stone as potential source. (2) Nephrolithiasis: Current visit: Yes Status: Chronic 6mm nonobsructing right renal calculus.Treatment as above. (3) Type 2 diabetes mellitus without complication, without long-term current use of insulin: Current visit: No Status: Chronic Continue sliding scale coverage. Not on any home regimen. (4) History of pulmonary embolism: Current visit: Yes Status: Acute Noted. Continue Coumadin and monitor daily INR. (5) DVT prophylaxis: Current visit: Yes Status: Acute On therapeutic anticoagulation but with continued subtherapeutic INR. Given history of PE initiated SC Enoxaparin previously until INR is improved. Also on PPI therapy for GI Prophylaxis. Subjective Interval history since last seen: 63-year-old man with a prior history of Diabetes, admitted from [facility] Emergency Department with a diagnosis of Acute Prostatitis and Sepsis. Mr. Klein has past medical history significant for DM, dyslipidemia, Obesity, Gout, and prior PE. He presented to the ED with a 2-day history of increased urinary urgency and urge incontinence, with subsequent development of rigors on the day of admission. He also endorsed increasing fatigue and worsening appetite. Initial work-up was remarkable for leukocytosis, abnormal urinalysis with evidence of Pyuria, and imaging showing evidence of prostatic enlargement by CT, and potential 6mm nonobstructing right renal calculus by ultrasound. Ct of the Chest and subsequent CXR were negative. Patient was referred for admission for further evaluation and treatment. Since admission Mr. Coelhos blood pressure and heart rate have both improved, and he feels subjectively better. However, he had continued to be febrile over the course of his first 2 days of hospitalization, last occuring very late at night on 06/06. He has been afebrile since that time, with a TMax of 37.8 early this morning. His Blood Culture is positive for Growth of a GNR, speciated to Providencia Rettgeri. No other events reported. Exam Narrative Exam Narrative: General: Patient appears comfortable, AAOX3, NAD Neck: Supple CV: Regular, nontachycardic, S1S2, No rubs, murmurs, or gallops. Pulmonary: Mild bibasilar crackles Abdomen: + Bowel Sounds, soft, nontender, nondistended Vascular: +1 b/l LE edema Psych: Normal mood and affect. Objective Objective Clinical Data: Abnormal lab results 06/08/18 06/08/18 06/08/18 Range/Units 07:45 07:45 07:45 RBC 4.05 L (4.50-6.00) m/cumm Hgb 12.8 L (13.5-17.5) g/dL Hct 38.4 L (40.0-50.0) % Absolute Neutrophils 6.81 H (1.2-6.7) k/cumm Absolute Lymphocytes 1.01 L (1.2-3.4) k/cumm Absolute Monocytes 1.42 H (0.11-0.7) k/cumm PT 14.8 H (9.3-11.0) sec INR 1.5 H (0.9-1.1) Glucose 135 H (70-100) mg/dL Magnesium 1.7 L (1.8-2.4) mg/dL Vital Signs Temperature 36.1 C L 06/08/18 07:42 Temperature Source Tympanic 06/08/18 07:42 Pulse 78 06/08/18 07:42 Pulse Rhythm Regular 06/08/18 09:33 Pulse 82 06/05/18 10:40 Respiratory Rate 18 06/08/18 07:42 Respiratory Effort 06/08/18 09:33 Respiratory Depth Normal 06/08/18 09:33 Respiratory Pattern Normal 06/08/18 09:33 Blood Pressure 119/75 06/08/18 07:42 Blood Pressure Mean 78 06/05/18 17:12 Blood Pressure Position Sitting 06/05/18 08:00 Pulse Oximetry 97 06/08/18 07:42 Oxygen Delivery Method Room Air 06/08/18 07:42 Oxygen Flow Rate 0 06/08/18 07:42 Pain Level 0 06/07/18 07:43 Comment 06/06/18 03:30 Intake & Output 06/07/18 06/08/18 06/08/18 23:59 11:59 23:59 Intake Total 2175.0 / 3726.25 2178.75 / 2298.75 120 / 2298.75 Output Total 2800 / 5650 1450 / 2130 680 / 2130 Balance -625.0 / -1923.75 728.75 / 168.75 -560 / 168.75 Weight 110.2 kg Intake: IV 575.0 / 1246.25 1038.75 / 1038.75 Oral 1600 / 2480 1140 / 1260 120 / 1260 Output: Urine 2800 / 5650 1450 / 2130 680 / 2130 Other: Urine Color Yellow Light Renée Yellow Urine Appearance Clear Cloudy Clear Urine Odor None Comment Void x2 in the urinal. Stool Size Small Moderate Stool Characteristics Soft Soft Liquid Brown Voiding Methods Urinal Urinal Urinal Laboratory Results WBC 9.83 k/cumm (4.4-10.8) 06/08/18 07:45 RBC 4.05 m/cumm (4.50-6.00) L 06/08/18 07:45 Hgb 12.8 g/dL (13.5-17.5) L 06/08/18 07:45 Hct 38.4 % (40.0-50.0) L 06/08/18 07:45 MCV 94.8 fL (80-95) 06/08/18 07:45 MCH 31.6 pg (27.0-33.0) 06/08/18 07:45 MCHC 33.3 g/dL (32.0-36.0) 06/08/18 07:45 RDW 12.8 % (11.8-14.1) 06/08/18 07:45 Plt Count 241 x1000/uL (130-400) 06/08/18 07:45 MPV 9.9 fL (8.0-11.0) 06/08/18 07:45 Immature Gran % 0.6 06/08/18 07:45 Neutrophils % 69.3 06/08/18 07:45 Lymphocytes % 10.3 06/08/18 07:45 Monocytes % 14.4 06/08/18 07:45 Eosinophils % 5.2 06/08/18 07:45 Basophils % 0.2 06/08/18 07:45 Absolute Neutrophils 6.81 k/cumm (1.2-6.7) H 06/08/18 07:45 Absolute Lymphocytes 1.01 k/cumm (1.2-3.4) L 06/08/18 07:45 Absolute Monocytes 1.42 k/cumm (0.11-0.7) H 06/08/18 07:45 Absolute Eosinophils 0.51 k/cumm (0.0-0.7) 06/08/18 07:45 Absolute Basophils 0.02 k/cumm (0.0-0.2) 06/08/18 07:45 Differential Comment Manual differential 06/05/18 06:20 RBC Morphology See below 06/05/18 06:20 Polychromasia Present 06/05/18 06:20 PT 14.8 sec (9.3-11.0) H 06/08/18 07:45 INR 1.5 (0.9-1.1) H 06/08/18 07:45 APTT 34.3 sec (21.0-31.4) H 06/04/18 17:05 Sodium 137 mmol/L (136-145) 06/08/18 07:45 Potassium 4.0 mmol/L (3.5-5.1) 06/08/18 07:45 Chloride 103 mmol/L (98-107) 06/08/18 07:45 Carbon Dioxide 27.2 mmol/L (21.0-32.0) 06/08/18 07:45 Anion Gap 6.8 mmol/L (3-11) 06/08/18 07:45 BUN 10 mg/dL (7-18) 06/08/18 07:45 Creatinine 0.93 mg/dL (0.70-1.30) 06/08/18 07:45 Estimated GFR/1.73 m2 >= 60.00 (mL/min/1.73m2) 06/08/18 07:45 Glucose 135 mg/dL (70-100) H 06/08/18 07:45 Hemoglobin A1c 7.0 % (4.5-6.2) H 06/05/18 06:20 Lactate 1.4 mmol/l (0.6-1.4) 06/04/18 17:05 Calcium 8.5 mg/dL (8.5-10.1) 06/08/18 07:45 Magnesium 1.7 mg/dL (1.8-2.4) L 06/08/18 07:45 Total Bilirubin 1.6 mg/dL (0.2-1.0) H 06/04/18 17:05 AST 13 U/L (15-37) L 06/04/18 17:05 ALT 28 U/L (12-78) 06/04/18 17:05 Alkaline Phosphatase 103 U/L (46-116) 06/04/18 17:05 Troponin I < 0.02 ng/mL (0.00-0.06) 06/04/18 17:05 Total Protein 7.3 g/dL (6.4-8.2) 06/04/18 17:05 Albumin 3.6 g/dL (3.4-5.0) 06/04/18 17:05 TSH 0.60 uIU/mL (0.358-3.74) 06/04/18 17:05 Urine Color Yellow (Yellow) 06/04/18 17:00 Urine Clarity Cloudy 06/04/18 17:00 Urine pH 6.0 (5-8) 06/04/18 17:00 Ur Specific [place] 1.020 (1.005-1.025) 06/04/18 17:00 Urine Protein 100 mg/dL (Negative) H 06/04/18 17:00 Urine Ketones 15 mg/dL (Negative) H 06/04/18 17:00 Urine Blood Large (Negative) H 06/04/18 17:00 Urine Nitrite Positive (Negative) H 06/04/18 17:00 Urine Bilirubin Small (Negative) H 06/04/18 17:00 Urine Urobilinogen 1.0 EU/dL (Up TO 0.2) H 06/04/18 17:00 Ur Leukocyte Esterase Small (Negative) H 06/04/18 17:00 Urine RBC Not Applicable 06/04/18 17:00 Urine WBC HPF (0-5) 06/04/18 17:00 Ur Epithelial Cells Not Applicable 06/04/18 17:00 Urine Crystals Not Applicable 06/04/18 17:00 Urine Bacteria Not Applicable 06/04/18 17:00 Urine Mucus Not Applicable 06/04/18 17:00 Ur Culture Indicated? Yes 06/04/18 17:00 Urine Glucose Negative mg/dL (Negative) 06/04/18 17:00
[2018-06-08] MEDS: Furosemide 20 MG/2 ML VIAL IVP (15:54)
[2018-06-08] MEDS: Normal Saline Flush 10 ML SYR IVP ×2 (15:55→19:29)
[2018-06-08 16:22] VITALS: BP 140/77; PULSE 79; RESP 18; TEMP 37.4; O2SAT 96
[2018-06-08] MEDS: levoFLOXacin 750 MG/150 ML BAG 100 MG IVPB (17:38)
[2018-06-08] MEDS: Enoxaparin 40 MG/0.4 ML SYR SC (17:38)
[2018-06-08] MEDS: Pantoprazole 40 MG VIAL IVP (19:28)
[2018-06-08 20:37] VITALS: BP 129/69; PULSE 82; RESP 18; TEMP 37.2
[2018-06-08 23:57] VITALS: BP 105/67; PULSE 74; RESP 19; TEMP 36.7; O2SAT 95
[2018-06-09 04:29] VITALS: BP 141/67; PULSE 86; RESP 18; TEMP 37.2; O2SAT 96
--- NOTE | 2018-06-09 07:11 | W.INDIABCONS ---
Date of service: 06/09/18 Time of Service: 07:11 Diabetes Inpatient Consult DESCRIPTION/ASSESSMENT: Appreciate diabetes consult for Jer Klein who is hospitalized with a genital-urinary infection. BMI 35 A1c 7 creeping up from 6.6 over past 6 months. He takes no diabetes medications at home. Mr. Klein is known to outpatient self-management support. Initially he brought blood sugars from 9 to 6.6 with lifestyle changes focused on food choices. He reports he has gone back to eating some of the sweets that he used to eat and that he buys for her Dad. Visited with him regarding his diabetes management. He does not test his blood sugars at home and is interested in doing this. Blood sugars this visit 107-150. He is eating 50-65 grams carbohydrate per meal here and receiving insulin correction at sensitive level and 1 unit for 10 grams carbohydrate. INTERVENTION: Mr. Klein is aware of what worked to manage his blood sugars and is motivated to go back to cutting out sweets. He wishes to monitor blood sugars and is advised how to obtain glucometer and will call for help with setting up and using the glucometer. No suggestion regarding blood sugar management at this time. PLAN: Limit/avoid the sweets he gave up when first diagnosed Speak with PCP at next visit next week for Rx for glucometer, strips and lancets Call with questions regarding set up and use of glucometer, and any other questions. Time Spent in Nutritional Counseling and Treatment: 15 minutes face to face inpatient
[2018-06-09 07:46] VITALS: BP 142/80; PULSE 70; RESP 18; TEMP 36.3; O2SAT 99
[2018-06-09 07:46] LABS: Abs Immature Grans 0.13 k/cumm (0.0-0.09); Absolute Basophil Count 0.02 k/cumm (0.0-0.2); Absolute Eosinophil Count 0.52 k/cumm (0.0-0.7); Basophils % 0.2; Eosinophils % 4.4; HCT 40.9 % (40.0-50.0); HGB 13.6 g/dL (13.5-17.5); Immature Grans % 1.1; Lymphocytes % 10.8; Mean Corp. HGB Concentration 33.3 g/dL (32.0-36.0); Mean Corpuscular Hemoglobin 31.3 pg (27.0-33.0); Monocytes % 12.9; Neutrophils % 70.6; Platelet Count 244 x1000/uL (130-400); RBC 4.35 m/cumm (4.50-6.00); RBC Distribution Width 12.7 % (11.8-14.1)
[2018-06-09 07:51] LABS: Absolute Lymphocyte Count 1.29 k/cumm (1.2-3.4); Absolute Monocyte Count 1.54 k/cumm (0.11-0.7)
[2018-06-09 07:55] LABS: Anion Gap 9.2 mmol/L (3-11); BUN 12 mg/dL (7-18); CO2 28.8 mmol/L (21.0-32.0); CREATININE 1.05 mg/dL (0.70-1.30); Calcium 8.9 mg/dL (8.5-10.1); Chloride 100 mmol/L (98-107); Glucose 174 mg/dL (70-100); Magnesium 1.8 mg/dL (1.8-2.4); Sodium 138 mmol/L (136-145)
[2018-06-09 08:04] LABS: INR 1.8 (0.9-1.1); Prothrombin Time 17.6 sec (9.3-11.0)
[2018-06-09] MEDS: Allopurinol 100 MG TAB PO (08:06)
[2018-06-09] MEDS: Gabapentin 300 MG CAP PO ×2 (08:06→13:34)
[2018-06-09] MEDS: Atorvastatin 20 MG TAB PO (08:06)
[2018-06-09] MEDS: Tamsulosin 0.4 MG CAPCR PO (08:06)
[2018-06-09] MEDS: Multivitamin TAB 1 TAB PO (08:06)
--- NOTE | 2018-06-09 08:13 | PDOC.CMDIS ---
LACE Index Scoring Tool - Questions: Length of Stay (in days): 4 - 6 Acuity (Admit via E.D.?): Yes Comorbidities: Diabetes w/o Complication E.D. Visits: 1 - Answers: Total Score: 9 Risk of Readmission: Low Risk Care Management Discharge Reason for Hospitalization: Prostatitis Discharge Plan: Jer will return home with outpatient follow up appointments. No additional services supports anticipated upon discharge. He will transport via private vehicle with a friend. Patient/Family Education Needs: Review discharge instructions, discuss Ask Me Three.
[2018-06-09] MEDS: Insulin Aspart 300 UNITS/3 ML PEN SC ×4 (08:16→12:08)
[2018-06-09 11:55] VITALS: BP 146/79; PULSE 75; RESP 18; TEMP 36.7; O2SAT 97
--- NOTE | 2018-06-09 13:54 | DSE_ITS ---
Date of service: 06/09/18 Time of Service: 13:44 DS: Diagnosis Discharge Diagnosis (1) Sepsis: Status: Acute (2) Nephrolithiasis: Status: Chronic (3) Type 2 diabetes mellitus without complication, without long-term current use of insulin: Status: Chronic (4) History of pulmonary embolism: Status: Acute Discharge Plan Disposition Patient Disposition: HOME Condition: Improving Discharge Details Reason For Visit: PROSTATITIS Admit Date/Time: 06/04/18 19:30 Admit Provider: Uri Mclean Attending Provider: Uri Mclean Primary Care Provider: Deloris Ledesma Hospital Course Hospital Course: CC: Fevers HPI: 63-year-old man with a prior history of DM, admitted from [facility] Emergency Department with a diagnosis of Acute Prostatitis and Sepsis. Mr. Klein has past medical history significant for DM, dyslipidemia, Obesity, Gout, and prior PE on chronic anticoagulation with Warfarin. He presented to the ED with a 2-day history of increased urinary urgency and urge incontinence, with subsequent development of rigors on the day of admission. He also endorsed increasing fatigue and worsening appetite. Initial work-up was remarkable for leukocytosis, abnormal urinalysis with evidence of Pyuria, and imaging showing evidence of prostatic enlargement by CT, and potential 6mm nonobstructing right renal calculus by ultrasound. CT of the Chest and subsequent CXR were negative. Patient was referred for admission for further evaluation and treatment. Since admission Mr. Klein's blood pressure and heart rate have both improved, and he feels subjectively better. However, he had continued to be febrile over the course of his first 2 days of hospitalization, last occuring very late at night on 06/06. He has been afebrile since that time, with a TMax of 37.8 early yesterday morning. His Blood Culture is positive for Growth of a GNR, speciated to Providencia Rettgeri on bottle, which is the same as the results on his urine culture. No other events reported. Now afebrile for over 48 hours. Hospital Course: (1) Sepsis: Evidence of Tachycardia and Leukocytosis with Source and Bacteremia. Resolved. Clinically suspect Acute Prostatitis based on symptoms, but patient also with 6mm non-obstructing stone in place. As per discussion with Urology at [facility] with prior hospitalist, since stone is nonobstructing no surgical intervention indicated. Patient with growth of GNR speciated to Proivdencia Rettgeri on Urine and Blood Culture, with repeat blood culture on 06/06 negative - sensitive to Fluoroquinolone therapy. Changed patient to Levofloxacin with plans for a 14 day course of GNR bacteremia with first episode of potential prostatitis (Currently day #5 total of antibiotic therapy). This was discussed with ID at [facility], with agreement on current management plan. Also started a-linda to facilitate passage of stone. If however patient experiences another bout of bacteremia or infection, will require addressing of stone as potential source. (2) Nephrolithiasis: 6mm nonobsructing right renal calculus.Treatment as above. (3) Type 2 diabetes mellitus without complication, without long-term current use of insulin: Was maintained on a sliding scale coverage. Not on any home regimen. (4) History of pulmonary embolism: Noted. Continue Coumadin and monitor daily INR - will recheck in 3 days as outpatient. Home Meds and New Rx's Prescriptions: New tamsulosin 0.4 mg Capsule 0.4 mg PO DAILY Qty: 30 RF: 0 warfarin [Coumadin] 5 mg Tablet 5 mg PO SuTuThSa@2000 Qty: 1 RF: 0 levofloxacin [Levaquin] 750 mg Tablet 750 mg PO Q24H Qty: 10 RF: 0 Continued atorvastatin 20 mg tablet 20 mg PO DAILY Qty: 90 RF: 3 warfarin [Coumadin] 2.5 mg tablet 2.5 mg PO DAILY Qty: 140 RF: 3 cetirizine [Zyrtec] 10 MG tablet 10 mg PO DAILY PRNRF: 0 ginseng 100 MG capsule 100 mg PO PRN PRNRF: 0 gabapentin 300 MG capsule 300 mg PO TID Qty: 270 RF: 3 multivitamin [Daily Multi-Vitamin] 1 EACH tablet 1 ea PO DAILY RF: 0 allopurinol 100 mg tablet 100 mg PO DAILY 90 Days Qty: 90 RF: 3 Discharge Instructions Instructions: Prostatitis (DC) Stand Alone Forms: Nursing Discharge Form Referrals: Deloris Ledesma MD [Primary Care Provider] - 06/17/18 11:00 am Activity:: No Strenuous Activity Equipment/Supplies:: No Equipment Needed Diet:: Carb Counting Discharge Orders Discharge Orders: Discharge Order (Routine); Ordered 06/09/18 Ordered By: Vin Cline Other Ambulatory Orders: Basic Metabolic Panel (Routine) Location: Determined by Patient Ordered By: Vin Cline Complete Blood Count w/Diff (Routine) Location: Determined by Patient Ordered By: Vin Cline Prothrombin Time (Routine) Timeframe: 3 Days Location: Determined by Patient Ordered By: Vin Cline DS: Data Vitals/I&O Vitals and I&O: Vital Signs Temperature 36.7 C 06/09/18 11:55 Temperature Source Tympanic 06/09/18 11:55 Pulse 75 06/09/18 11:55 Pulse Rhythm Regular 06/09/18 10:22 Pulse 82 06/05/18 10:40 Respiratory Rate 18 06/09/18 11:55 Respiratory Effort 06/09/18 10:22 Respiratory Depth Normal 06/09/18 10:22 Respiratory Pattern Normal 06/09/18 10:22 Blood Pressure 146/79 H 06/09/18 11:55 Blood Pressure Mean 78 06/05/18 17:12 Blood Pressure Position Sitting 06/05/18 08:00 Pulse Oximetry 97 06/09/18 11:55 Oxygen Delivery Method Room Air 06/09/18 11:55 Oxygen Flow Rate 0 06/09/18 11:55 Pain Level 0 06/09/18 13:33 Comment 06/06/18 03:30 Intake & Output 06/08/18 06/09/18 06/09/18 23:59 11:59 23:59 Intake Total 640 / 2818.75 Output Total 680 / 2130 1230 / 1230 Balance -40 / 688.75 -1230 / -1230 Weight 107.8 kg Intake: IV 160 / 1198.75 Oral 480 / 1620 Output: Urine 680 / 2130 1230 / 1230 Other: Urine Color Yellow Pale Yellow Urine Appearance Clear Clear Urine Odor None Voiding Methods Toilet Urinal Completed studies during hospitalization [Text1]: Exam(s) 06/04/[address]:CT chest PE abd & pelvis w SYMPTOM/DIAGNOSIS: SOB, FATIGUE, TACHYCARDIA, H/O PE PE CHEST CTA: CT angiography was performed with multi slice acquisition and multi planar and 3D reconstruction. CT angiography of the chest was performed with a bolus infusion of 100 cc's of Omnipaque 350. The patient has a history of previous pulmonary embolic disease seen on chest CT of 10/15/13. 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 No new embolus identified. Thoracic aorta and major branches appear normal. Lungs are generally clear. No pleural effusion is seen. Incidental pulmonary nodules are noted including a 5 mm. right lower lobe nodule. This appears unchanged from 10/15/13. Tracheobronchial tree appears intact. No mediastinal or hilar adenopathy. 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 in diameter. CONCLUSION: No evidence of acute pulmonary embolic disease. Presumed sequelae of old PE in right lower lobe pulmonary arterial vessels. ABDOMINAL AND PELVIC CT: CT examination of the abdomen and pelvis was performed following the contrast enhanced PE CT. Abdominal aorta is of normal diameter. No major branch vessel abnormality is seen. Liver, spleen and pancreas appear normal. Gallbladder and bile ducts are normal. Adrenals and kidneys are normal. No abdominal or pelvic adenopathy is seen. No evidence of diverticulitis or bowel obstruction. Normal appearance of the appendix. Prostatic enlargement noted. CONCLUSION: No evidence of acute intra-abdominal process. Exam(s) 06/05/2018 a US:US renal SYMPTOM/DIAGNOSIS: UROSEPSIS, PROSTATITIS RENAL ULTRASOUND: The kidneys are normal in size and shape and there is no evidence of a renal mass or hydronephrosis. There is a probable mid pole, non obstructing stone of the right kidney measuring about 6 mm. in diameter. Urinary bladder has a significant postvoid residual with pre and post void residual volumes of 331 cc's and 189 cc's respectively. Prostatic volume is 71 cc's. CONCLUSION: Possible non obstructing right renal calculus. Post residual volume of the bladder of 189 cc's. Labs on day of discharge: Labs from last 24 hours 06/09/18 06/09/18 06/09/18 07:02 07:02 07:02 WBC 11.90 H RBC 4.35 L Hgb 13.6 Hct 40.9 MCV 94.0 MCH 31.3 MCHC 33.3 RDW 12.7 Plt Count 244 MPV 10.0 Immature Gran % 1.1 Neutrophils % 70.6 Lymphocytes % 10.8 Monocytes % 12.9 Eosinophils % 4.4 Basophils % 0.2 Absolute Neutrophils 8.40 H Absolute Lymphocytes 1.29 Absolute Monocytes 1.54 H Absolute Eosinophils 0.52 Absolute Basophils 0.02 PT 17.6 H INR 1.8 H Sodium 138 Potassium 4.0 Chloride 100 Carbon Dioxide 28.8 Anion Gap 9.2 BUN 12 Creatinine 1.05 Estimated GFR/1.73 m2 >= 60.00 Glucose 174 H Calcium 8.9 Magnesium 1.8 Preliminary micro results at discharge 06/06/18 08:25 Blood Culture - Preliminary Blood NO GROWTH 72 HOURS 06/06/18 08:15 Blood Culture - Preliminary Blood NO GROWTH 72 HOURS 06/04/18 17:22 Blood Culture - Preliminary Blood NO GROWTH 96 HOURS 06/04/18 17:42 Blood Culture - Preliminary Blood Providencia Rettgeri Blood Culture ( Age => 8 Yrs) Preliminary 06/07/18-62906/05/18 Aerobic bottle positive; gram stain shows GRAM NEGATIVE RODS. Gram stain results called to and read back from URI CARDENAS RN/ICU at 0956 by LABGRETCHEN Organism 1 PROVIDENCIA RETTGERI Prov rett RESULT Ampicillin R Ampicillin/Sulbactam I Cefazolin R Ceftazidime S CEFTRIAXONE S Ciprofloxacin S Gentamicin S Levofloxacin S Tobramycin S Piperacillin/[facility]obactam S [facility] Medical History Type 2 diabetes, diet controlled (Chronic) Gout, unspecified (Chronic) Post herpetic neuralgia (Chronic) h/o elevated psa (Chronic) Pulmonary embolism (Resolved 10/16/13) Surgical History thyroid biopsy (Resolved 11/15/13) Family History Mother Essential hypertension Stroke Father Spinal stenosis Other Personal history of malignant neoplasm Social History Smoking/Tobacco Use Status: Never Alcohol Intake: former Year quit: 2008 Drug use: Never Substance use type: does not use Adopted: No Caregiver/Support person: No Foster care: No Household members: family Housing: house Number of Children: 0 current occupation: used to work in [employer] Pets and animals: Yes What type of physical activity do you participate in: none and other Details: shoveling snow Duration: 45-60 minutes/day Seatbelt use: always Drive intox or ride w/intox 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
== END 2018-06-09 14:55 | disposition home or self-care (01) | DRG 872 ==
LOC: ER 20:35 → ICU 21:42 → MS 06-09 13:54 → ICU 06-17 15:22
PROVIDERS: Internal Medicine; Admitting Provider Internal Medicine; Emergency Provider Student in an Organized Health Care Education/Training Program; PCP Internal Medicine; Visit Provider Internal Medicine
DX: A41.59 Other Gram-negative sepsis (principal); N41.0 Acute prostatitis; N40.1 Benign prostatic hyperplasia with lower urinary tract symptoms; N39.41 Urge incontinence; R39.15 Urgency of urination; N20.0 Calculus of kidney; E11.9 Type 2 diabetes mellitus without complications; Z86.711 Personal history of pulmonary embolism; Z79.01 Long term (current) use of anticoagulants; Z71.3 Dietary counseling and surveillance
CPT/HCPCS: 36410; 36415; 71275; 74177; 76770; 80048; 80053; 87040; 87077; 87449; 93005; 96361; 96365; 99222; 99223; 99232; 99233; 99239; 99252; 99285; J1650; 71045; 81003; 81015; 83036; 83605; 83735; 84443; 84484; 85025; 85610; 85730; 87086; 87186; 87324; 93010; J1941; J1956; J3490

== ENCOUNTER 2018-06-12 08:32 | Outpatient (CLI) | payer MEDICARE, MEDICAID, SELFPAY ==
[2018-06-12 09:10] LABS: Abs Immature Grans 0.11 k/cumm (0.0-0.09); Absolute Basophil Count 0.03 k/cumm (0.0-0.2); Absolute Eosinophil Count 0.32 k/cumm (0.0-0.7); Absolute Lymphocyte Count 1.23 k/cumm (1.2-3.4); Absolute Monocyte Count 0.83 k/cumm (0.11-0.7); Absolute Neutrophil Count 5.68 k/cumm (1.2-6.7); Basophils % 0.4; Eosinophils % 3.9; HCT 41.4 % (40.0-50.0); HGB 13.8 g/dL (13.5-17.5); Immature Grans % 1.3; Mean Corp. HGB Concentration 33.3 g/dL (32.0-36.0); Mean Corpuscular Hemoglobin 31.4 pg (27.0-33.0); Mean Corpuscular Volume 94.1 fL (80-95); Mean Platelet Volume 9.2 fL (8.0-11.0); Monocytes % 10.1; Neutrophils % 69.3; Platelet Count 327 x1000/uL (130-400); RBC Distribution Width 12.7 % (11.8-14.1)
[2018-06-12 09:20] LABS: INR 1.6 (0.9-1.1)
[2018-06-12 09:41] LABS: Anion Gap 6.9 mmol/L (3-11); BUN 17 mg/dL (7-18); CO2 29.1 mmol/L (21.0-32.0); CREATININE 1.07 mg/dL (0.70-1.30); Calcium 8.6 mg/dL (8.5-10.1); Chloride 103 mmol/L (98-107); Glucose 168 mg/dL (70-100); Potassium 4.1 mmol/L (3.5-5.1); Sodium 139 mmol/L (136-145)
== END 2018-06-12 08:52 ==
PROVIDERS: PCP Internal Medicine; Visit Provider Internal Medicine
DX: R78.81 Bacteremia (principal); Z86.711 Personal history of pulmonary embolism; Z79.01 Long term (current) use of anticoagulants; A41.9 Sepsis, unspecified organism; E11.9 Type 2 diabetes mellitus without complications
CPT/HCPCS: 36415; 80048; 85025; 85610

== ENCOUNTER → 2018-06-23 13:29 | Outpatient (BNVA) | payer MEDICARE, MEDICAID, SELFPAY | PROVIDERS: PCP Internal Medicine; Visit Provider Urology | DX: N39.0 Urinary tract infection, site not specified (principal); R33.9 Retention of urine, unspecified | CPT/HCPCS: 51798; 81003; 99213 ==

== ENCOUNTER 2018-06-23 14:51 | Outpatient (REF) | payer MEDICARE, MEDICAID, SELFPAY | END 2018-06-23 15:11 | LOC: LBN 14:51 | PROVIDERS: PCP Internal Medicine; Visit Provider Urology | DX: N39.0 Urinary tract infection, site not specified (principal) | CPT/HCPCS: 87086 ==

== ENCOUNTER → 2018-09-04 14:06 | Outpatient (BNVA) | payer MEDICARE, SELFPAY | PROVIDERS: Referring Provider Internal Medicine; Visit Provider Urology | DX: R33.9 Retention of urine, unspecified (principal); Z87.440 Personal history of urinary (tract) infections | CPT/HCPCS: 51798; 81003; 99213 ==

== ENCOUNTER 2018-09-04 14:55 | Outpatient (REF) | payer MEDICARE, SELFPAY | END 2018-09-04 15:15 | LOC: LBN 14:55 | PROVIDERS: Visit Provider Urology | DX: Z87.440 Personal history of urinary (tract) infections; R33.9 Retention of urine, unspecified | CPT/HCPCS: 87086 ==

== ENCOUNTER → 2018-12-08 12:04 | Outpatient (BNVA) | payer MEDICARE, SELFPAY | PROVIDERS: PCP Internal Medicine; Visit Provider Urology | DX: N39.0 Urinary tract infection, site not specified (principal); A49.9 Bacterial infection, unspecified; E11.9 Type 2 diabetes mellitus without complications | CPT/HCPCS: 51798; 81003; 99213 ==

== ENCOUNTER 2018-12-08 14:34 | Outpatient (REF) | payer MEDICARE, SELFPAY | END 2018-12-08 14:54 | LOC: LBN 14:34 | PROVIDERS: PCP Internal Medicine; Visit Provider Urology | DX: N39.0 Urinary tract infection, site not specified (principal); A49.9 Bacterial infection, unspecified | CPT/HCPCS: 87086 ==

== ENCOUNTER → 2019-03-16 13:33 | Outpatient (BNVA) | payer MEDICARE, SELFPAY | PROVIDERS: PCP Internal Medicine; Referring Provider Internal Medicine; Visit Provider Urology | DX: R33.8 Other retention of urine (principal) | CPT/HCPCS: 81003; 99213 ==

== ENCOUNTER → 2019-09-14 10:49 | Outpatient (BNVA) | payer MEDICARE, SELFPAY | PROVIDERS: PCP Internal Medicine; Referring Provider Internal Medicine; Visit Provider Urology | DX: R33.8 Other retention of urine (principal); Z87.440 Personal history of urinary (tract) infections; E11.9 Type 2 diabetes mellitus without complications | CPT/HCPCS: 81003; 99213 ==

== ENCOUNTER 2020-03-31 01:29 | Outpatient (CLI) | payer MEDICARE, SELFPAY ==
[2020-03-31 13:05] LABS: COMMENT (LAB VIEW ONLY) 126.03 mg/dL; Microalb ug/mg Crea 8.9 ug/mg Cr
[2020-03-31 13:14] LABS: BUN 14 mg/dL (7-18); Calcium 8.8 mg/dL (8.5-10.1); Calculated LDL 19 mg/dL (<100); Chloride 102 mmol/L (98-107); Cholesterol 107 mg/dL (<200); Glucose 151 mg/dL (74-106); HDL Cholesterol 26 mg/dL (40-60); Potassium 4.4 mmol/L (3.5-5.1); Sodium 141 mmol/L (136-145); Triglyceride 312 mg/dL (<150)
== END 2020-03-31 01:30 | disposition home or self-care (01) ==
LOC: LBO 01:29
PROVIDERS: PCP Internal Medicine; Visit Provider Internal Medicine
DX: E11.9 Type 2 diabetes mellitus without complications (principal); E78.5 Hyperlipidemia, unspecified; E78.00 Pure hypercholesterolemia, unspecified; I10 Essential (primary) hypertension
CPT/HCPCS: 36415; 80048; 80061; 82043; 82570

== ENCOUNTER → 2020-04-10 10:18 | Outpatient (BNVA) | payer MEDICARE, SELFPAY | PROVIDERS: PCP Internal Medicine; Referring Provider Internal Medicine; Visit Provider Nurse Practitioner Gerontology | DX: N39.0 Urinary tract infection, site not specified (principal); R33.8 Other retention of urine | CPT/HCPCS: 81003; 99213 ==

== ENCOUNTER → 2020-10-09 15:07 | Outpatient (BNVA) | payer MEDICARE, SELFPAY | PROVIDERS: PCP Internal Medicine; Referring Provider Internal Medicine; Visit Provider Nurse Practitioner Gerontology | DX: N39.0 Urinary tract infection, site not specified (principal); A49.9 Bacterial infection, unspecified; R33.9 Retention of urine, unspecified | CPT/HCPCS: 81003; 99214 ==

== ENCOUNTER 2021-03-08 10:47 | Outpatient (CLI) | payer MEDICARE, SELFPAY ==
--- NOTE | 2021-03-08 10:00 | NS.NUTBLAN_ITS ---
Abdi was referred to Diabetes Self Management Education and for Nata 2 continuous glucose monitor placement. 5'9 213 lbs BMI 31. 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 Brings in Nata 2 reader and sensors. Most recent meds: 01/04/22: A1C: 11.5%, 03/31/20: Chol: 107, LDL: 19?, HDL: 26, trig 312. Meds: metformin 500 mg BID. Session today focused on how to place CGM, Abdi able to place with instruction. Programmed reader and reviewed use of CGM. Has follow up appt. for data down load on 03/16/21 at 1 pm. Reviewed life style and diet changes beneficial for glucose management, hypertension and weight management. Abdi is very motivated. Will continue to support and follow.
== END 2021-03-08 10:48 | disposition home or self-care (01) ==
PROVIDERS: PCP Internal Medicine; Visit Provider Dietitian, Registered
DX: E11.9 Type 2 diabetes mellitus without complications (principal); Z71.3 Dietary counseling and surveillance
CPT/HCPCS: 97802

== ENCOUNTER 2021-03-12 02:22 | Outpatient (CLI) | payer MEDICARE, SELFPAY ==
[2021-03-12 08:28] LABS: COMMENT (LAB VIEW ONLY) 175.23 mg/dL; Microalb ug/mg Crea 5.7 ug/mg Cr
[2021-03-12 09:04] LABS: Anion Gap 9.5 mmol/L (3-11); BUN 19 mg/dL (7-18); CO2 27.5 mmol/L (21.0-32.0); Calcium 9.1 mg/dL (8.5-10.1); Calculated LDL 44 mg/dL (<100); Chloride 101 mmol/L (98-107); Cholesterol 94 mg/dL (<200); Glucose 177 mg/dL (74-106); HDL Cholesterol 31 mg/dL (40-60); Sodium 138 mmol/L (136-145); TSH 0.91 uIU/mL (0.36-3.74); Triglyceride 98 mg/dL (<150)
== END 2021-03-12 02:23 | disposition home or self-care (01) ==
LOC: LBO 02:22
PROVIDERS: PCP Internal Medicine; Visit Provider Internal Medicine
DX: E04.9 Nontoxic goiter, unspecified (principal); E11.9 Type 2 diabetes mellitus without complications; E78.00 Pure hypercholesterolemia, unspecified; E78.5 Hyperlipidemia, unspecified; I10 Essential (primary) hypertension
CPT/HCPCS: 36415; 80048; 80061; 82043; 82570; 84443

== ENCOUNTER → 2021-03-13 14:10 | Outpatient (BNVA) | payer MEDICARE, SELFPAY | PROVIDERS: PCP Internal Medicine; Referring Provider Internal Medicine; Visit Provider Nurse Practitioner Gerontology | DX: R33.9 Retention of urine, unspecified (principal); N39.0 Urinary tract infection, site not specified; A49.9 Bacterial infection, unspecified | CPT/HCPCS: 81003; 99214 ==

== ENCOUNTER 2021-03-19 10:13 | Outpatient (CLI) | payer MEDICARE, SELFPAY ==
--- NOTE | 2021-03-19 13:00 | NS.NUTBLAN_ITS ---
Abdi returns after wearing a Nata 2 continuos glucose monitor for the last 12 days. He reports that it took him about 2 days until he was able to modify his diet so CGM would not alarm. Most recent A1C: 11.5% (03/06/21) DM meds: metformin BID Diet Recall: omelete, pork chop and vegetables, azeri food- no rice Exercise: walks daily 30 minutes Abdi has made several beneficial life style changes in response to wearing CGM. 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 Ambulatory Glucose Profile (03/06/21-03/19/21) Average Glucose: 177 mg/dl Estimate A1C: 7.5% Glucose Variability: 31.6% at goal 70-180 mg/dl: 62% 181-250 mg/dl: 25% > 250 mg/dl: 13% no hypoglycemia Reviewed glucose data and Abdi was able to identify foods that caused elevated blood sugars. Goal is to get ideal range (70-180) > 70% of time during day and to keep blood sugars > 180 mg/dl less than 25% of time. Expect continued use of CGM will improve blood sugars further. Abdi remains very motivated and finds CGM a very interactive tool for self management. Follow up scheduled for 04/19/21 at 1 pm.
== END 2021-03-19 10:14 | disposition home or self-care (01) ==
LOC: DS 10:18
PROVIDERS: PCP Internal Medicine; Visit Provider Dietitian, Registered
DX: E11.9 Type 2 diabetes mellitus without complications (principal); Z71.3 Dietary counseling and surveillance; Z79.84 Long term (current) use of oral hypoglycemic drugs
CPT/HCPCS: 97803

== ENCOUNTER 2021-04-19 02:54 | Outpatient (CLI) | payer MEDICARE, SELFPAY ==
--- NOTE | 2021-04-19 11:00 | NS.NUTBLAN_ITS ---
Abdi returns for data download with his Libre2 continuous glucose monitor. He reports enjoying the interaction he has with his diet and BS levels and that he feels like he is learning what his body can process and maintain glycemic control. Ambulatory Glucose Profile 04/06/21 to 04/19/21 Average Glucose: 123 mg/dl Time in Range (70-180 mg/dl): 94% of time no hypoglycemia 180-250 mg/dl: 6% of time No levels > 250 mg/dl. Abdi reports taking metformin 1-2 times per day. He often forgets to take second dose at night. CGM data clearly shows improvement and suspect if A1C taken today, it would be less than 8%. Abdi would like to continue visiting every 4 weeks for Dm down load and discussion. Diabetes very well controlled with medications, life style changes at this time. Follow up appt. scheduled for 05/25/21 at 1 pm.
== END 2021-04-19 02:55 | disposition home or self-care (01) ==
LOC: DS 02:55
PROVIDERS: PCP Internal Medicine; Visit Provider Dietitian, Registered
DX: E11.9 Type 2 diabetes mellitus without complications (principal); Z79.84 Long term (current) use of oral hypoglycemic drugs; Z71.3 Dietary counseling and surveillance
CPT/HCPCS: 97803

== ENCOUNTER 2021-05-25 01:26 | Outpatient (CLI) | payer MEDICARE, SELFPAY ==
--- NOTE | 2021-05-25 13:00 | NS.NUTBLAN_ITS ---
Abdi returns to diabetes self management education. Wt: 222 He reports feeling well overall and that using the Libre2 continuous glucose monitor has helped him tremendously. DM meds: he takes his metformin typically once daily. Ambulatory Glucose Profile (05/25/21-05/12/21) Average Glucose: 127 mg/dl Time in Range (70-180 mg/dl): 92% >250 mg/dl: 1% 180-250 mg/dl: 7% no hypoglycemic events. Abdi continues to have excellent glycemic control and has brought his A1C down from 11% to 7.7%. Goal A1C in view of co morbidities and age: <8%. Reviewed meal plans and adjusted for variety. Weight stable. Follow up in 90 days.
== END 2021-05-25 01:27 | disposition home or self-care (01) ==
PROVIDERS: PCP Internal Medicine; Visit Provider Dietitian, Registered
DX: E11.9 Type 2 diabetes mellitus without complications (principal); Z79.84 Long term (current) use of oral hypoglycemic drugs; Z71.3 Dietary counseling and surveillance
CPT/HCPCS: 97803

== ENCOUNTER 2021-08-24 03:44 | Outpatient (CLI) | payer MEDICARE, SELFPAY ==
--- OUTSIDE RECORDS SUMMARY | 2021-08-24 03:45 | XMS_ITS | Clinical Summary ---
:1955 Author Organization [facility] [place] [address] Care Team Providers Name Role Phone Unknown Primary Care Provider Unavailable Allergies Active Allergy Reactions Severity Noted Date Comments Facial Mask 10/28/2013 Mold Extracts 10/28/2013 Medications Medication Sig Dispensed Refills Start Date End Date Status gabapentin (NEURONTIN) Take 100 mg by 0 Active 100 mg Capsule mouth 3 times daily. warfarin (COUMADIN) 5 Take 5 mg by mouth 0 Active mg Tablet daily. colchicine (COLCRYS) Take 0.6 mg by 0 Active 0.6 mg mouth once weekly TabletIndications: as needed. gout Indications: Gout Active Problems No known active problems Social History Tobacco Use Types Packs/Day Years Used Date Never Smoker Smokeless Tobacco: Never Used Sex Assigned at Date Recorded Not on file Last Filed Vital Signs Vital Sign Reading Time Taken Comments Blood Pressure 169/88 11/15/2013 1:45 PM EDT Pulse 75 11/15/2013 1:45 PM EDT Temperature 35.9 ??C (96.6 ??F) 11/15/2013 12:54 PM EDT Respiratory Rate 18 11/15/2013 1:45 PM EDT Oxygen Saturation 96% 11/15/2013 1:45 PM EDT Inhaled Oxygen Concentration - - Weight 108.4 kg (239 lb) 11/16/2014 8:45 AM EDT Height 182.9 cm (6') 11/16/2014 8:45 AM EDT Body Mass Index 32.41 11/16/2014 8:45 AM EDT Plan of Treatment Health Maintenance Due Date Last Done Comments Covid-19 Vaccine (#1) 1958 Hepatitis C Screening 1971 Lipid Screening 1971 Tdap adult 1972 Tetanus vaccine 1972 Colonoscopy 1998 Zoster vaccine (1 of 2) 2003 Advance Directive 2008 Pneumoccocal Vaccine: 65+ (1 - PCV) 2018 Influenza (Flu) vaccine (1 of 1 - Influenza standard 10/25/2020 series) Insurance Payer Benefit Plan / Subscriber ID Effective Dates Phone Addre ss Type Group [place] [id number] 2014-Pres [phone] [address] [place] [address] Care Teams Machine Driller Relationship Specialty Start Date End Date Unknown PCP - General 10/13/19 None
--- OUTSIDE RECORDS SUMMARY | 2021-08-24 03:46 | XMS_ITS | Encounter Summary ---
:1955 Author Organization [facility] Address [address] [place] [address] Care Team Providers Name Role Phone Ion Braun Primary Care Provider Encounter Details Date Type Department Care Team Description 07/07/2013 Orders Only Otolaryngology at [facility] Andres Hopper, [facility] Seth martí[place] [address] [facility] [phone] OTOLARYNGOLOGY D EPT. [place], [place] [address] (Wo rk) Social History Tobacco Use Types Packs/Day Years Used Date Never Assessed Sex Assigned at Date Recorded Not on file documented as of this encounter Plan of Treatment Not on filedocumented as of this encounter Procedures Procedure Name Priority Date/Time Associated Comments Diagnosis FILM LIBRARY STORAGE Routine 07/07/2013 8:46 AM R esults for this ONLY ULTRASOUND EDT procedure ar e in STUDY the results section. documented in this encounter Results Film Library- Storage only Ultrasound Study (07/07/2013 8:46 AM EDT) Anatomical Region Laterality Modality Other Specimen (Source) Anatomical Collection Method Collection Time Re ceived Time Location / / Volume Laterality 07/07/2013 8:46 AM EDT Narrative 07/14/2013 8:51 AM EDT This is a Non-reportable exam Procedure Note 07/14/2013 This is a Non-reportable exam Andres Hopper MD IMG FILM LIBRARY ORDERABLES documented in this encounter Visit Diagnoses Not on filedocumented in this encounter Care Teams Software Quality Assurance Analyst Relationship Specialty Start Date End Date Ion Braun PA PCP - General 07/14/13 10/12/19 [address] [place] [address] documented as of this encounter
--- OUTSIDE RECORDS SUMMARY | 2021-08-24 03:46 | XMS_ITS | Encounter Summary ---
:1955 Author Organization [facility] [place] [address] Care Team Providers Name Role Phone Ion Braun Primary Care Provider Encounter Details Date Type Department Care Team Description 11/04/2013 Orders Only Radiology at [facility] Renée Kent, On bridging treatment with l ovenox; [facility] UNDERLAY STITCHER Warfarin anticoagulation [address] [place], [place] [address] [address] NEUROSURGERY [phone] [place] [address] Social History Tobacco Use Types Packs/Day Years Used Date Never Smoker Smokeless Tobacco: Never Used Sex Assigned at Date Recorded Not on file documented as of this encounter Progress Notes Renée Medrano, UNDERLAY STITCHER - 11/04/2013 1:58 PM EDT PRE-PROCEDURE VIR NOTE: Referring Physician: Andres Hopper MD PCP: PB ANDERSEN Planned Procedure: Ultrasound guided thyroid biopsy Procedure Indication: Thyroid goiter, evaluate cytology Presenting Diagnosis/ Complaint: Jer Klein is a 58 y.o. male with the above. Of note, he developed PE in September,, for which he is currently taking coumadin. He is familiar with the Lovenox bridge from his onset of warfarin therapy. Past Medical/Surgical History There is no problem list on file for this patient. Shingles Gout Pulmonary embolism Medications: Current Outpatient Prescriptions on File Prior to Visit Medication Sig Dispense Refill ??? gabapentin (NEURONTIN) 100 mg Capsule Take 100 mg by mouth 3 times daily. ??? warfarin (COUMADIN) 5 mg Tablet Take 5 mg by mouth daily. Allergies: Dust & pollen filter mask and Mold extracts Social History and Habits: History Social History ??? Marital Status: Single Spouse Name: N/A Number of Children: N/A ??? Years of Education: N/A Occupational History ??? Not on file. Social History Main Topics ??? Smoking status: Never Smoker ??? Smokeless tobacco: Never Used ??? Alcohol Use: Not on file ??? Drug Use: Not on file ??? Sexually Active: Not on file Other Topics Concern ??? Not on file Social History Narrative ??? No narrative on file Significant Family History: No family history on file. Physical Exam: Pending Labs: No results found for this basename: wbc, anc, hct, PLATELET, inr, bun, creatinine, alkphos, ast, albumin, bilidir, bilitot, alt, prot Prior relevant imaging: Neck CT in edh Assessment/Plan: Patient Position: Supine Biopsy/drain access site: L thyroid nodule Medications to discontinue (and days): Stop coumadin 5 days prior, lovenox bridge with dose held onevening prior to procedure and morning of procedure. Labs: CBC, INR, aPTT day of procedure. General anesthesia required: Moderate sedation Patient has appointment with PCP 11/05/13 and will discuss lovenox bridge at that time. Will contact patient with date of procedure so he may d/c coumadin appropriately. Goal on day of procedure is INR less than 1.5, as close to 1.0 as possible. Plan is to resume coumadin day following procedure, continuing lovenox bridge until INR is therapeutic. documented in this encounter Plan of Treatment Not on filedocumented as of this encounter Results APTT (11/15/2013 10:57 AM EDT) P athologist Signature PTT 26 25 - 35 sec [facility] Comment: Recommended therapeutic PTT range for fu ll dose unfractionated heparin is 80-114 seconds. Specimen Anatomical Collection Method Collection Time Receive d Time (Source) Location / / Volume Laterality Blood specimen 11/15/2013 10:57 4 (specimen) AM EDT 11:05 AM EDT Resulting Agency Comment Spec In Lab Yehuda Olguin MD HEMATOLOGY ORDERABLES Performing Organization Address City/State/[place] [address] CERNER [employer] Prothrombin Time (11/15/2013 10:57 AM EDT) P athologist Signature PT 13.6 12.5 - 15.5 CERNER sec MILLENNIUM Comment: [facility] Transfusion Committee Guidelines: I NR less than 2.0, PTT less than OR equal to 43.5 seconds, or Fibrinogen gre ater than or equal to 100 mg/dl indicate adequate procoagulant activity for hemostasis in patients without underlying bleeding disorders. INR 1.0 0.9 - 1.1 CERNER [email or web address] Specimen Anatomical Collection Method Collection Time Receive d Time (Source) Location / / Volume Laterality Blood specimen 11/15/2013 10:57 4 (specimen) AM EDT 11:05 AM EDT Resulting Agency Comment Spec In Lab Yehuda Olguin MD HEMATOLOGY ORDERABLES Performing Organization Address City/State/[place] [address] [facility] [address] [facility] documented in this encounter Visit Diagnoses Diagnosis On bridging treatment with lovenox Encounter for long-term (current) use of anticoagulants Warfarin anticoagulation Encounter for long-term (current) use of anticoagulants documented in this encounter Care Teams Resident Physician In Radiology Relationship Specialty Start Date End Date Ion Braun PA PCP - General 07/14/13 10/12/19 [address] [place] [address] documented as of this encounter
--- OUTSIDE RECORDS SUMMARY | 2021-08-24 03:46 | XMS_ITS | Encounter Summary ---
:1955 Author Organization [facility] Address [facility] [place] [address] Care Team Providers Name Role Phone Ion Braun Primary Care Provider Encounter Details Date Type Department Care Team Description 11/05/2013 Orders [address]ology at [facility] Andres Hopper Thyroid mass of [facility] Seth [place] [address] [facility] (Primary Dx) [phone] CENTER OTOLARYNGOLOGY DEPT. [place], [place] [address] Social History Tobacco Use Types Packs/Day Years Used Date Never Smoker Smokeless Tobacco: Never Used Sex Assigned at Date Recorded Not on file documented as of this encounter Plan of Treatment Not on filedocumented as of this encounter Visit Diagnoses Diagnosis Thyroid mass of unclear etiology - Prima ry documented in this encounter Care Teams Inclusion Intern Relationship Specialty Start Date End Date Ion Braun PA PCP - General 07/14/13 10/12/19 [address] [place], [place] [id number] documented as of this encounter
--- OUTSIDE RECORDS SUMMARY | 2021-08-24 03:46 | XMS_ITS | Encounter Summary ---
:1955 Author Organization [facility] [place] [address] Care Team Providers Name Role Phone Ion Braun Primary Care Provider Encounter Details Date Type Department Care Team Description 11/15/2013 Hospital Encounter Laboratory Sharif Yehuda On bridging treatment with l ovenox; [facility] MD [place] Warfarin anticoagulation [facility] [address] DIAGNOSTIC [phone] [place] [address] Social History Tobacco Use Types Packs/Day Years Used Date Never Smoker Smokeless Tobacco: Never Used Sex Assigned at Date Recorded Not on file documented as of this encounter Medications at Time of Discharge Medication Sig Dispensed Refills Start Date End Date colchicine (COLCRYS) 0.6 Take 0.6 mg by mouth 0 mg TabletIndications: gout once weekly as needed. Indications: Gout gabapentin (NEURONTIN) 100 Take 100 mg by mouth 0 mg Capsule 3 times daily. warfarin (COUMADIN) 5 mg Take 5 mg by mouth 0 Tablet daily. documented as of this encounter Miscellaneous Notes Miscellaneous - Nadiya Huertas - 11/18/2013 12:48 PM EDT documented in this encounter Plan of Treatment Not on filedocumented as of this encounter Procedures Procedure Name Priority Date/Time Associated Diagnosis Comme nts HEMOGRAM STAT 11/15/2013 10:57 On bridging treatment Re sults for this AM EDT with lovenox procedure are i n the results section. DIFFERENTIAL, STAT 11/15/2013 10:57 On bridging treatment R esults for this AUTOMATED AM EDT with lovenox procedure are i n the results section. APTT STAT 11/15/2013 10:57 On bridging treatment Re sults for this AM EDT with lovenox procedure are i n the results section. PROTHROMBIN TIME STAT 11/15/2013 10:57 Warfarin Results for this AM EDT anticoagulation procedure ar e in the results section. CBC (WITH DIFF) STAT 11/15/2013 10:57 On bridging treatment AM EDT with lovenox documented in this encounter Results Differential, Automated (11/15/2013 10:57 AM EDT) P athologist Signature Neutrophils % 67.5 34.0 - CERNER 71.0 % MILLENNIUM Neutr Abs (ANC) 6.29 1.50 - CERNER 6.30 MILLENNIUM x10(3)/mcL Lymphocytes % 19.0 19.0 - CERNER 53.0 % MILLENNIUM Lymphocytes Abs 1.8 1.0 - 3.6 CERNER x10(3)/mcL MILLENNIUM Monocytes % 7.5 4.0 - 13.0 CERNER % MILLENNIUM Monocyte Abs 0.7 0.2 - 1.0 CERNER x10(3)/mcL MILLENNIUM Eosinophils % 5.5 0.0 - 7.0 CERNER % MILLENNIUM Eosinophils Abs 0.5 0.0 - 0.5 CERNER x10(3)/mcL MILLENNIUM Basophils % 0.2 0.0 - 2.0 CERNER % MILLENNIUM Basophils Abs 0.0 0.0 - 0.2 CERNER x10(3)/mcL MILLENNIUM Immature Gran % 0.30 0.00 - CERNER 0.66 % MILLENNIUM Comment: Immature granulocytes(IG's)percentage an d absolute count will include metamyelocytes, myelocytes, and promyelo cytes. Blood smears from CBCs yielding IG's will be scanned manually for concor dance. If this scan disagrees with the automated IG or if promyelocytes are not ed, a manual differential will be performed. Flower Gran Abs 0.03 0.00 - 0.05 x10(3)/mcL CER NER MILLENNIUM Specimen Anatomical Collection Method Collection Time Receive d Time (Source) Location / / Volume Laterality Blood specimen 11/15/2013 10:57 4 (specimen) AM EDT 11:05 AM EDT Resulting Agency Comment Spec In Lab Yehuda Olguin MD HEMATOLOGY ORDERABLES Performing Organization Address City/[facility]/[place] [address] [facility] MILLENNIUM Hemogram (11/15/2013 10:57 AM EDT) P athologist Signature WBC 9.3 4.0 - 10.0 CERNER x10(3)/mcL MILLENNIUM RBC 5.00 4.63 - 6.08 CERNER x10(6)/mcL MILLENNIUM Hemoglobin 15.3 13.7 - 17.5 CERNER gm/dL MILLENNIUM Hematocrit 46.0 40.0 - 51.0 CERNER % MILLENNIUM MCV 92.0 79.0 - 92.0 CERNER fL MILLENNIUM MCH 30.6 25.6 - 32.2 CERNER pg MILLENNIUM MCHC 33.3 32.0 - 36.5 CERNER gm/dL MILLENNIUM Platelets 199 145 - 370 CERNER x10(3)/mcL MILLENNIUM RDWSD 44.7 35.0 - 46.0 CERNER fL MILLENNIUM RDWCV 13.4 10.9 - 14.4 CERNER % MILLENNIUM MPV 9.5 9.0 - 12.0 CERNER fL MILLENNIUM Specimen Anatomical Collection Method Collection Time Receive d Time (Source) Location / / Volume Laterality Blood specimen 11/15/2013 10:57 4 (specimen) AM EDT 11:05 AM EDT Resulting Agency Comment Spec In Lab Yehuda Olguin MD HEMATOLOGY ORDERABLES Performing Organization Address City/State/ZIP Code Phon e Number [address] [facility] MILLENNIUM APTT (11/15/2013 10:57 AM EDT) P athologist Signature PTT 26 25 - 35 sec [facility] Comment: Recommended therapeutic PTT range for fu ll dose unfractionated heparin is 80-114 seconds. Specimen Anatomical Collection Method Collection Time Receive d Time (Source) Location / / Volume Laterality Blood specimen 11/15/2013 10:57 4 (specimen) AM EDT 11:05 AM EDT Resulting Agency Comment Spec In Lab Yehuda Olguin MD HEMATOLOGY ORDERABLES Performing Organization Address City/[facility]/ZIP Code Phon e Number [address] CERNER [employer] Prothrombin Time (11/15/2013 10:57 AM EDT) P athologist Signature PT 13.6 12.5 - 15.5 CERNER sec MILLENNIUM Comment: [facility] Transfusion Committee Guidelines: I NR less than 2.0, PTT less than OR equal to 43.5 seconds, or Fibrinogen gre ater than or equal to 100 mg/dl indicate adequate procoagulant activity for hemostasis in patients without underlying bleeding disorders. INR 1.0 0.9 - 1.1 [facility] [employer] Specimen Anatomical Collection Method Collection Time Receive d Time (Source) Location / / Volume Laterality Blood specimen 11/15/2013 10:57 4 (specimen) AM EDT 11:05 AM EDT Resulting Agency Comment Spec In Lab Yehuda Olguin MD HEMATOLOGY ORDERABLES Performing Organization Address City/[facility]/ZIP Code Phon e Number [place] [phone] [facility] LAB[address] Drive [facility] documented in this encounter Visit Diagnoses Diagnosis On bridging treatment with lovenox Encounter for long-term (current) use of anticoagulants Warfarin anticoagulation Encounter for long-term (current) use of anticoagulants documented in this encounter Care Teams Qa Developer Relationship Specialty Start Date End Date Ion Braun PA PCP - General 07/14/13 10/12/19 [address] [place] [address] documented as of this encounter
--- OUTSIDE RECORDS SUMMARY | 2021-08-24 03:46 | XMS_ITS | Encounter Summary ---
:1955 Author Organization [facility] Address [facility] [place] [address] Care Team Providers Name Role Phone Ion Braun Primary Care Provider Reason for Visit Reason Onset Date Comments Other 11/05/2013 Encounter Details Date Type Department Care Team Description 11/05/2013 Telephone Otolaryngology at [facility] Andres Hopper, Other [facility] Seth martí[place] [address] [facility] [phone] OTOLARYNGOLOGY D EPT. [place], [place] [address] (Wo rk) Social History Tobacco Use Types Packs/Day Years Used Date Never Smoker Smokeless Tobacco: Never Used Sex Assigned at Date Recorded Not on file documented as of this encounter Miscellaneous Notes Telephone Encounter - Ramya Manuel RN - 11/18/2013 8:53 AM EDT Mr. Klein called with some questions but decided to ask them at his appointment. documented in this encounter Plan of Treatment Not on filedocumented as of this encounter Visit Diagnoses Not on filedocumented in this encounter Care Teams Hot Tamale Man Relationship Specialty Start Date End Date Ion Braun PA PCP - General 07/14/13 10/12/19 [address] [place] [address] documented as of this encounter
--- OUTSIDE RECORDS SUMMARY | 2021-08-24 03:46 | XMS_ITS | Encounter Summary ---
:1955 Author Organization [facility] Address [facility] [place] [address] Care Team Providers Name Role Phone Ion Braun Primary Care Provider Reason for Visit Reason Comments Other Enlarged thyroid Encounter Details Date Type Department Care Team Description 10/28/2013 Office Visit Otolaryngology at Andres Roberto Thyroid mass of [facility] Seth [place] [address] [facility] (Primary Dx) [phone] CENTER OTOLARYNGOLOGY DEPT. [place], [place] [address] Social History Tobacco Use Types Packs/Day Years Used Date Never Smoker Smokeless Tobacco: Never Used Sex Assigned at Date Recorded Not on file documented as of this encounter Last Filed Vital Signs Vital Sign Reading Time Taken Comments Blood Pressure 154/83 10/28/2013 10:24 AM EDT Pulse 88 10/28/2013 10:24 AM EDT Temperature - - Respiratory Rate - - Oxygen Saturation - - Inhaled Oxygen Concentration - - Weight 108 kg (238 lb) 10/28/2013 10:24 AM EDT Height 184.2 cm (6' 0.5) 10/28/2013 10:24 AM EDT Body Mass Index 31.83 10/28/2013 10:24 AM EDT documented in this encounter Progress Notes Andres Hopper MD - 10/28/2013 4:35 PM EDT Attending note: Patient seen and examined with the above resident. I have reviewed and agree with the history, physical, and assessment and plan. I was present and supervised the flexible fiberoptic laryngoscopy. Andres Hopper MD FACS Otolaryngology - Head & Neck Surgery Aries Will MD - 10/28/2013 10:27 AM EDT [facility] Otolaryngology - Head & Neck Surgery NEW PATIENT CONSULTATION Primary Care Physician:PB ANDERSEN Consult requested by:Luis Miguel Bowling, DO Date:10/28/2013 ENT Attending:Dr. Hopper Reason for consultation:Enlarged Thyroid History present illness: History obtained through patient interview, review of relevant records, and/or discussion with referring provider. Jer Klein is a 58 y.o. male presenting with goiter on thyroid notice 5 months ago on x-ray at [facility] during workup for pneumonia. He thinks that it aggravated a cough when he had his PE, but it is otherwise asymptomatic. No dyspnea currently, no dysphagia. No voice changes. No unex pected weight loss/gain. No palpitations/fevers. No changes in mood or energy levels or sleep habits. No known history of thyroid disease. Of note he had a pulmonary embolus in late September for which he's being treated with Warfarin currently. 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 Past medical history: There is no problem list on file for this patient. 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 Marital Status: Single [...] History Narrative ??? No narrative on file Lives in : .[facility] [address] Family history: No history of head and neck cancer Medications: Outpatient Encounter Prescriptions as of 10/28/2013 Medication Sig Dispense Refill ??? gabapentin (NEURONTIN) 100 mg Capsule Take 100 mg by mouth 3 times daily. ??? warfarin (COUMADIN) 5 mg Tablet Take 5 mg by mouth daily. Allergies: Allergies as of 10/28/2013 - Review Complete 10/28/2013 Allergen Reaction Noted ? ? Dust & pollen filter mask (facial mask) 10/28/2013 ??? Mold extracts 10/28/2013 Exam: Vitals: Blood pressure 154/83, pulse 88, height 184.2 cm (6' 0.5), weight 107.956 kg (238 lb). GENERAL: Well developed, well appearing, no acute distress. HEAD/FACE/EYES: Normocephalic with no gross deformity. Extraocular movements intact. SALIVARY: Parotid and submandibular glands are normal to inspection and palpation. EARS: Normal exam of the external ear, ear canal, and middle ear. NOSE: Normal external nasal exam. Septum is straight. Turbinates are normal. ORAL CAVITY: Normal exam of oral tongue Normal mucosa without lesion Floor of mouth is soft. edentulous OROPHARYNX: Normal tonsils. Normal soft palate and uvula. Normal posterior pharyngeal wall. NECK: Large neck No adenopathy. Enlarged thyroid. Slightly palpable mass in inferior left lobe. Non-tender RESPIRATORY: Normal voice. No stridor. Normal respirations. CV: Normal carotid pulses. SKIN: Normal skin survey of the head and neck region. MUSCULOSKELETAL: Normal neck range of motion. No trismus. NEURO/PSYCH: Normal affect. Alert and oriented x 3. Responds appropriately to questions. CN II-XII grossly intact. Procedure Note: (I performed the procedure in conjunction with the attending physician) The patient was topically anesthesized and decongested in bilateral nares with 1:1 lidocaine and privine. A flexible scope was then passed into the nare. Findings: - normal nasal mucosa - mucus retention cyst midline nasopharynx; normal bilateral rosenmuller fossas - normal appearing base of tongue and valleculae - normal appearing epiglottis - normal appearing vocal cords with symmetric movemement bilaterally - normal appearing piriform sinuses Radiology: Neck CT: (see scanned docs) Enlarged thyroid w/ extension into mediastinum, 5 cm heterogenous calcified nodule in left inferior lobe, malignancy cannot be excluded Ultrasound--findings consistent w/ multinodular goiter Assessment: Large Multinodular goiter with mass effect on trachea. Asymptomatic. Given his recent PE and anticoagulation, and asymptomatic nature of the goiter, would advise CT-guided biopsy of the mass to excludemalignancy, and if malignancy is excluded, expectant management of goiter until he is healthier froma pulmonary standpoint prior to consideration of surgery Recommendations/Plan: --CT guided biopsy of large nodule on inferior left lobe documented in this encounter Plan of Treatment Not on filedocumented as of this encounter Visit Diagnoses Diagnosis Thyroid mass of unclear etiology - Prima ry documented in this encounter Care Teams Community Nurse Relationship Specialty Start Date End Date Ion Braun PA PCP - General 07/14/13 10/12/19 [address] [place] [address] documented as of this encounter
--- OUTSIDE RECORDS SUMMARY | 2021-08-24 03:46 | XMS_ITS | Encounter Summary ---
:1955 Author Organization [facility] Address [address] [place] [address] Care Team Providers Name Role Phone Unknown, Provider Primary Care Provider Encounter Details Date Type Department Care Team Description 03/24/2015 Results Only [facility] rBy Harry, DO [phone] [place] [address] [place], [place] [id number] Social History Tobacco Use Types Packs/Day Years Used Date Never Assessed Sex Assigned at Date Recorded Not on file documented as of this encounter Plan of Treatment Not on filedocumented as of this encounter Procedures Procedure Name Priority Date/Time Associated Diagnosis Comme [facility] SURGICAL PATHOLOGY Routine 03/24/2015 7:48 EST Re sults for this procedure are i n the results section. documented in this encounter Results SURGICAL PATHOLOGY (03/24/2015 7:48 EST) Pathology Report: SURGICAL PATHOLOGY REPORT [facility] Reports generated via electronic interface contain karie ginal data; LABORATORY however they are lacking the format of the original re port. SERVICES Caution should be taken when reading/interpreting unfo rmatted reports. Name: ? JER KLEIN ? Accession #: ? [id number] ? : ? 1955 (Age: [age]) ??M ? Collect Date: ? 03/24/2015 ? Location: ? [facility] ? Receive Date: ? 03/25/19 16 ? Provider: BRY HARRY DO Copy to: DEEPA MCDONOUGH MD ? Final Pathologic Diagnosis: A. COLON, SIGMOID, 50 CM, POLYP, BIOPSY: - ??Tubular adenoma. B. COLON, SIGMOID, 35 CM, POLYP, BIOPSY: - ??Tubular adenoma. C. RECTUM, POLYP, BIOPSY: - ??Hyperplastic polyp. Document reviewed and electronically signed by: DAPHNE PALMA MD Report ??Date: 03/28/2015 14:31 By the signature above, the attending physician certif ies that he/she has personally conducted a gross and/or microscopic examin ation of the described specimens and rendered or confirmed the above diagnosi s. Specimen(s) Received: A. ??Sigmoid polyp at 50 cm B. ??Sigmoid polyp at 35 cm C. ??Rectal polyp Clinical History: Diverticula and colon polyps Gross Description: A. ?Received in formalin labelled with proper p atient identification (initials H, T) and 50 cm s igmoid polyp is a single castelan-brown polypoid tissue (0.5 x 0.4 x 0.3 cm). The margin is inke d black, the specimen is trisected and entirely submitted in block A1. B. ?Received in formalin labelled with proper p atient identification (initials H, T) and 35 cm sigmoid polyp is a single pink-castelan tissue fragment (0.6 x 0.2 x 0.1 cm). Submitted intact in block B1. C. ?Received in formalin labelled with proper p atient identification (initials H, T) and rectal polyp is a single pink-castelan tissue fragment (0.4 x 0.3 x 0.1 cm). Submitted intact in block C1. Noelle Bates 03/27/2015 7:56 AM End of Report Specimen Performing Organization Address City/State/ZIP Code Phon e Number [facility] [address] [place] [address] SERVICES documented in this encounter Visit Diagnoses Not on filedocumented in this encounter Care Teams Phlebotomy Supervisor Relationship Specialty Start Date End Date Unknown, Provider, PCP - General 03/24/15 documented as of this encounter
--- OUTSIDE RECORDS SUMMARY | 2021-08-24 03:46 | XMS_ITS | Encounter Summary ---
:1955 Author Organization [facility] Address [facility] [place] [address] Care Team Providers Name Role Phone Ion Braun Primary Care Provider Encounter Details Date Type Department Care Team Description 06/26/2013 Orders Only Otolaryngology at [facility] Andres Hopper, [facility] Seth [place] [address] [facility] [phone] OTOLARYNGOLOGY D EPT. [place], [place] [address] (Wo rk) Social History Tobacco Use Types Packs/Day Years Used Date Never Assessed Sex Assigned at Date Recorded Not on file documented as of this encounter Plan of Treatment Not on filedocumented as of this encounter Procedures Procedure Name Priority Date/Time Associated Diagnosis Comme nts FILM LIBRARY Routine 06/26/2013 8:43 AM Results f or this STORAGE ONLY DX EDT procedure ar e in CHEST the results section. documented in this encounter Results Film Library- Storage only DX Chest (06/26/2013 8:43 AM EDT) Anatomical Region Laterality Modality Other Specimen (Source) Anatomical Collection Method Collection Time Re ceived Time Location / / Volume Laterality 06/26/2013 8:43 AM EDT Narrative 07/14/2013 8:48 AM EDT This is a Non-reportable exam Procedure Note 07/14/2013 This is a Non-reportable exam Andres Hopper MD IMG FILM LIBRARY ORDERABLES documented in this encounter Visit Diagnoses Not on filedocumented in this encounter Care Teams Astronomy Teacher Relationship Specialty Start Date End Date Ion Braun PA PCP - General 07/14/13 10/12/19 [address] [place] [address] documented as of this encounter
--- OUTSIDE RECORDS SUMMARY | 2021-08-24 03:46 | XMS_ITS | Encounter Summary ---
:1955 [place] [address] Care Team Providers Name Role Phone Ion Braun Primary Care Provider Encounter Details Date Type Department Care Team Description 11/02/2013 Notes Only Neurodiagnostic at [facility] Chester Momin MD [facility] [place] [address] RADIOLOGY DEPT. [phone] [place], [place] [address] (Wo rk) Social History Tobacco Use Types Packs/Day Years Used Date Never Smoker Smokeless Tobacco: Never Used Sex Assigned at Date Recorded Not on file documented as of this encounter Progress Notes Chester Momin - 11/02/2013 12:58 PM EDT Neurointerventional Radiology Preprocedure note Procedure: Thyroid US and potential FNA Level/Side: Thyroid, possibly left, will scan prior to deciding Patient position: Supine Medications to discontinue: Coumadin (will need to discuss with referring clinician regarding bridging) Labs need prior to procedure: Plt, INR Antibiobiotics: None required Pathology: No Labs during procedure: None Approving attending: González documented in this encounter Plan of Treatment Not on filedocumented as of this encounter Visit Diagnoses Not on filedocumented in this encounter Care Teams Microwave Radio Technician Relationship Specialty Start Date End Date Ion Braun PA PCP - General 07/14/13 10/12/19 [address] [place], [place] [address] documented as of this encounter
--- OUTSIDE RECORDS SUMMARY | 2021-08-24 03:46 | XMS_ITS | Encounter Summary ---
:1955 Author Organization [facility] [place] [address] Care Team Providers Name Role Phone Ion Braun Primary Care Provider Encounter Details Date Type Department Care Team Description 11/19/2013 Telephone Otolaryngology at [facility] Theresa Pabon, [place] [address] Social History Tobacco Use Types Packs/Day Years Used Date Never Smoker Smokeless Tobacco: Never Used Sex Assigned at Date Recorded Not on file documented as of this encounter Miscellaneous Notes Telephone Encounter - Theresa Pabon, CECIL - 11/19/2013 1:28 PM EDT Patient of who underwent a CT-guided biopsy for a thyroid goiter. See results below: Comment--- The tissue appears to represent thyroid parenchyma. Although benign mediastinal thyroid tissue is favored, a follicular patterned neoplasm can not be entirely excluded. Due to his recent PE and anticoagulation and the benign nature of the results, would like to just observe and see the Jer back in 6 months with a repeat ct scan. Patient notified of results and states that he is doing fine. He is aware that would like to see him back in 6 months. He will call if he has any concerns. documented in this encounter Plan of Treatment Not on filedocumented as of this encounter Visit Diagnoses Not on filedocumented in this encounter Care Teams Foreign Languages Professor Relationship Specialty Start Date End Date Ion Braun PA PCP - General 07/14/13 10/12/19 [address] [place] [address] documented as of this encounter
--- OUTSIDE RECORDS SUMMARY | 2021-08-24 03:46 | XMS_ITS | Encounter Summary ---
:1955 Author Organization [facility] Address [facility] [place] [address] Care Team Providers Name Role Phone Ion Braun Primary Care Provider Reason for Visit Reason Comments Goiter Thyroid nodule Encounter Details Date Type Department Care Team Description 11/16/2014 Follow-Up Otolaryngology at [facility] Andres Whitlock Thyroid mass of unclear etio logy; [facility] Seth [place] [address] [facility] [phone] OTOLARYNGOLOGY DEPT. [place], [place] [address] Social History Tobacco Use Types Packs/Day Years Used Date Never Smoker Smokeless Tobacco: Never Used Sex Assigned at Date Recorded Not on file documented as of this encounter Last Filed Vital Signs Vital Sign Reading Time Taken Comments Blood Pressure - - Pulse - - Temperature - - Respiratory Rate - - Oxygen Saturation - - Inhaled Oxygen Concentration - - Weight 108.4 kg (239 lb) 11/16/2014 8:45 AM EDT Height 182.9 cm (6') 11/16/2014 8:45 AM EDT Body Mass Index 32.41 11/16/2014 8:45 AM EDT documented in this encounter Progress Notes Andres Whitlock MD - 11/16/2014 9:05 AM EDT [facility] Follow up note Jer Klein is a 59 y.o. male He is being followed for an incidentally discovered substernal goiter. New issues since last visit: He denies any difficulty laying flat, breathing difficulties, or swallowing problems. No voice change. He does reports some nasal congestion. Had CT guided FNA performed last fall: ---Pathologic Diagnosis--- Mediastinal mass, CT-guided biopsy: Scant fragments of follicular-patterned thyroid tissue - (See Comment.) ---Comment--- The tissue appears to represent thyroid parenchyma. Although benign mediastinal thyroid tissue is favored, a follicular patterned neoplasm can not be entirely excluded. The CT performed during his needle biopsy did not demonstrate any change in the size of the goiter over a 4 month period. PROBLEM LIST: There is no problem list on file for this patient. PAST MEDICAL HISTORY: No past medical history on file. SOCIAL HISTORY: History Substance Use Topics ??? Smoking status: Never Smoker ??? Smokeless tobacco: Never Used ??? Alcohol Use: Not on file MEDICATIONS: Current Outpatient Prescriptions on File Prior to Visit Medication Sig Dispense Refill ??? colchicine (COLCRYS) 0.6 mg Tablet Take 0.6 mg by mouth once weekly as needed. Indications: Gout ??? gabapentin (NEURONTIN) 100 mg Capsule Take 100 mg by mouth 3 times daily. ??? warfarin (COUMADIN) 5 mg Tablet Take 5 mg by mouth daily. No current facility-administered medications on file prior to visit. ALLERGIES: Allergies Allergen Reactions ? ? Dust & Pollen Filter Mask [Facial Mask] ??? Mold Extracts ROS: Pertinent positive findings discussed above. No other findings on review of constitutional visual, cardiovascular, respiratory, gastrointestinal, genitourinary, musculoskeletal, dermatologic, neurological, psychiatric, endocrine, hematologic or immunologic systems. PHYSICAL EXAMINATION: There were no vitals filed for this visit. Wt Readings from Last 3 Encounters: 11/16/14 108.41 kg (239 lb) 10/28/13 107.956 kg (238 lb) General: Well developed, no distress Head/face: Normocephalic, atraumatic Nose: Mild rhinitis bilaterally, septum is straight. Oral cavity: Normal exam of the lips, teeth/gums, floor of mouth, tongue. Normal oral mucosa. Normalpalate. Oropharynx: Normal soft palate, tonsils, lateral pharyngeal wall, posterior pharynx. Neck: Fullness in the lower neck on the left c/w thyroid goiter. No adenopathy or other mass. Resp: Normal speech, no stridor, normal respirations. Skin: Normal skin survey of the head and neck. MSK: No trismus, normal neck range of motion Neuro: AxOx3; CN II-XII is grossly intact Psych: Normal mood and affect. Responds appropriately to questions. ASSESSMENT/RECOMMENDATIONS: 1 - Goiter. Benign on biopsy. Asymptomatic. 2 - Rhinitis. Sinus Rinse Kit recommended. RTC [address] neck/upper chest I appreciate the opportunity to be involved in Mr. Klein's care. Please do not hesitate to contact [email or web address] [email or web address], (office), (page explosive operator bomb) or [phone] (mobile) if you have any questions. ANDRES WHITLOCK MD 11/16/2014 documented in this encounter Plan of Treatment Not on filedocumented as of this encounter Visit Diagnoses Diagnosis Thyroid mass of unclear etiology Chronic rhinitis documented in this encounter Care Teams Metals Sales Representative Relationship Specialty Start Date End Date Ion Braun PA PCP - General 07/14/13 10/12/19 [address] [place] [address] documented as of this encounter
--- OUTSIDE RECORDS SUMMARY | 2021-08-24 03:46 | XMS_ITS | Encounter Summary ---
:1955 Author Organization [facility] Address [address] [place] [address] Care Team Providers Name Role Phone Unknown, Provider Primary Care Provider Encounter Details Date Type Department Care Team Description 03/24/2015 Hospital Encounter [facility]- Karen Unknown, Provider, [facility] [address] [place] [address] [place] [address] (Work) [phone] Social History Tobacco Use Types Packs/Day Years Used Date Never Assessed Sex Assigned at Date Recorded Not on file documented as of this encounter Discharge Disposition Disposition Code Departure Means Destination Home or Self Long Term documented in this encounter Plan of Treatment Not on filedocumented as of this encounter Visit Diagnoses Not on filedocumented in this encounter Care Teams Continuing Education Dean Relationship Specialty Start Date End Date Unknown, Provider, PCP - General 03/24/15 documented as of this encounter
--- NOTE | 2021-08-24 14:00 | NS.NUTBLAN_ITS ---
Abdi returns for diabetes self management education. He has been using a rin 2 continuous glucose monitor for the last year and has improved his A1C from 11.9 to 7.7%. He has lost over 20 lbs DM meds: metformin 500 mg- prescribed BID, but he typically only takes once daily Diet Recall: 4 eggs for B, turkey sandwich for L, well balanced meal at night. No routine exercise but very active. Ambulatory Glucose Profile: Average Blood Sugar: 142 mg/dl 82% Time in Range (70-180) At [employer] 16% 180-250 mg At [facility] 2% > 250 mg/dl At [employer] Abdi is doing very well with his glycemic management. The CGM has helped him with portions and now reports eating more healthy foods such as vegetables and lean meats. Current Dm regime providing adequate glycemic coverage. No follow up needed at this time. Recommend follow up if Time in Range less than 70% of time.
== END 2021-08-24 03:45 | disposition home or self-care (01) ==
LOC: DS 03:44
PROVIDERS: PCP Internal Medicine; Visit Provider Dietitian, Registered
DX: E11.9 Type 2 diabetes mellitus without complications (principal); Z79.84 Long term (current) use of oral hypoglycemic drugs; Z71.3 Dietary counseling and surveillance
CPT/HCPCS: 97803

== ENCOUNTER → 2021-09-11 15:05 | Outpatient (BNVA) | payer MEDICARE, SELFPAY | PROVIDERS: PCP Internal Medicine; Referring Provider Internal Medicine; Visit Provider Nurse Practitioner Gerontology | DX: R33.8 Other retention of urine (principal); N40.1 Benign prostatic hyperplasia with lower urinary tract symptoms; R39.12 Poor urinary stream | CPT/HCPCS: 51798; 99214 ==

== ENCOUNTER → 2021-12-20 10:13 | Outpatient (BNVA) | payer MEDICARE, SELFPAY | PROVIDERS: PCP Nurse Practitioner Adult Health; Referring Provider Nurse Practitioner Adult Health; Visit Provider Nurse Practitioner Gerontology | DX: R33.8 Other retention of urine (principal); R39.89 Other symptoms and signs involving the genitourinary system; N39.0 Urinary tract infection, site not specified; A49.9 Bacterial infection, unspecified | CPT/HCPCS: 51798; 81003; 99214 ==

== ENCOUNTER 2021-12-20 16:16 | Outpatient (REF) | payer MEDICARE, SELFPAY | END 2021-12-20 16:17 | disposition home or self-care (01) | LOC: LBN 16:16 | PROVIDERS: PCP Nurse Practitioner Adult Health; Visit Provider Nurse Practitioner Gerontology | DX: A49.9 Bacterial infection, unspecified (principal); N39.0 Urinary tract infection, site not specified | CPT/HCPCS: 87086 ==

== ENCOUNTER 2021-12-25 01:36 | Emergency (ER) | payer MEDICARE, SELFPAY ==
[2021-12-25 01:44] VITALS: BP 133/71; PULSE 79; RESP 20; TEMP 37.1; O2SAT 98
--- NOTE | 2021-12-25 01:51 | W.ED.GENAD ---
Discharge Plan Disposition Patient Disposition: HOME Condition: Improving Discharge Details Clinical Impression: Cellulitis of left thumb Primary Care Provider: Brittany Richard ED Provider: Milan Puente Home Meds and New Rx's Prescriptions: New cephalexin 500 mg capsule 500 mg PO TID 7 Days Qty: 21 0RF Continued metformin 500 mg tablet extended release 24hr 500 mg PO BID Label Comments: takes qhs daily and in AM prn high blood sugar warfarin 5 mg tablet 5 mg PO DAILY Qty: 90 3RF Protocol: Dose Management Condition: Friday Dose/Route: 5 mg Instruction: 1 x 5 mg tablet Condition: Friday Dose/Route: 5 mg Instruction: 1 x 5 mg tablet Condition: Friday Dose/Route: 5 mg Instruction: 1 x 5 mg tablet Condition: Friday Dose/Route: 5 mg Instruction: 1 x 5 mg tablet Condition: Dose/Route: 5 mg Instruction: 1 x 5 mg tablet Condition: Friday Dose/Route: 5 mg Instruction: 1 x 5 mg tablet Condition: Friday Dose/Route: 5 mg Instruction: 1 x 5 mg tablet Protocol Text: Adjustment Start Date: Friday12/24/21 INR Value: 3.3 INR Date: 12/24/21 Recheck Date: 12/31/21 allopurinol 100 mg tablet 100 mg PO DAILY Qty: 90 3RF atorvastatin 20 mg tablet 20 mg PO DAILY Qty: 90 3RF lisinopril 2.5 mg tablet 2.5 mg PO DAILY Qty: 90 3RF tamsulosin [Flomax] 0.4 mg capsule 0.8 mg PO DAILY Qty: 180 3RF cetirizine [Zyrtec] 10 MG tablet 10 mg PO DAILY PRN ginseng 100 MG capsule 100 mg PO PRN PRN Label Comments: 10/04/15- pt reports it it a liquid extract, that he takes a few times a week. NC multivitamin [Daily Multi-Vitamin] tablet 1 tab PO DAILY PRN (DME) FreeStyle Nata 2 Cochrane Misc See Rx Instructions .ROUTE .MEDSUPPLY Qty: 1 0RF Rx Instructions: As directed (DME) FreeStyle Nata 2 Sensor Kit See Rx Instructions .ROUTE .MEDSUPPLY Qty: 2 12RF Rx Instructions: As directed Discharge Instructions Instructions: Cellulitis (ED) Additional Instructions: Continue Epson soaks 3-4 times daily as needed. Take antibiotics as prescribed. First dose now and then begin 3 times daily tomorrow morning. Return to the emergency department for any acute concerns. Medical Decision Making 66-year-old male diabetic who is on warfarin for history of PE. States he got a splinter in his left thumb which he removed 2 days ago and now has developed a mild cellulitis. No systemic signs of septicemia. He is well-appearing. We will place him on Keflex due to lack of significant interaction with his warfarin. He understands home care as well as return precautions. HPI General Mode of arrival: ambulatory. Date/Time Provider Initiated Documentation: 12/25/21 01:38. Limitations to Documentation: no limitations. Information obtained by: patient. History of Present Illness 66 year old M presents to the emergency department with the chief complaint of Left thumb cellulitis for 1 day, described as mild, Quality is described as dull and constant, and is localized to the left and upper extremity. Patient reports no radiation. Patient started experiencing this hour(s) and it has been constant. No relieving factors improve symptom(s), No exacerbating factors reported . Patient notes denies fever/chills and weakness. Patient did receive the following treatments prior to arrival, none Related Data Home Medications Medication Instructions Recorded Confirmed cetirizine 10 mg tablet (Zyrtec) 10 mg PO DAILY PRN 02/15/15 11/09/21 ginseng 100 mg capsule 100 mg PO PRN PRN 10/04/15 11/09/21 multivitamin (Daily Multi-Vitamin 1 tab PO DAILY PRN 08/06/18 11/09/21 tablet) flash glucose scanning reader #1 ea 04/12/21 11/09/21 (FreeStyle Nata 2 Cochrane) allopurinol 100 mg tablet 100 mg PO DAILY #90 tabs 05/02/21 11/09/21 atorvastatin 20 mg tablet 20 mg PO DAILY #90 tabs 05/02/21 12/25/21 lisinopril 2.5 mg tablet 2.5 mg PO DAILY #90 tabs 05/02/21 12/25/21 warfarin 5 mg tablet 5 mg PO DAILY #90 tabs 05/02/21 12/25/21 metformin 500 mg tablet,extended 500 mg PO BID 06/05/21 12/25/21 release 24hr tamsulosin 0.4 mg capsule (Flomax) 0.8 mg PO DAILY #180 caps 09/11/21 12/25/21 flash glucose sensor (FreeStyle #2 ea 12/05/21 Anta 2 Sensor kit) cephalexin 500 mg capsule 500 mg PO TID 7 days #21 caps 12/25/21 Previous Rx's Medication Instructions Recorded flash glucose scanning reader #1 ea 04/12/21 (FreeStyle Nata 2 Cochrane) allopurinol 100 mg tablet 100 mg PO DAILY #90 tabs 05/02/21 atorvastatin 20 mg tablet 20 mg PO DAILY #90 tabs 05/02/21 lisinopril 2.5 mg tablet 2.5 mg PO DAILY #90 tabs 05/02/21 warfarin 5 mg tablet 5 mg PO DAILY #90 tabs 05/02/21 tamsulosin 0.4 mg capsule (Flomax) 0.8 mg PO DAILY #180 caps 09/11/21 flash glucose sensor (FreeStyle #2 ea 12/05/21 Nata 2 Sensor kit) cephalexin 500 mg capsule 500 mg PO TID 7 days #21 caps 12/25/21 Allergies Allergy/AdvReac Type Severity Reaction Status Date / Time No Known Drug Allergies Allergy Verified 12/24/21 13:48 General Stated Complaint: Orthopedic JOHNATHAN: 4 Review of Systems Narrative: Splinter removed. No fever or chills. Otherwise well. 6 systems were reviewed [facility] All Active Problems (Updated 12/25/21 @ 01:54 by Milan Puente MD) Cellulitis of left thumb (Acute) Elevated blood pressure reading without diagnosis of hypertension (Acute) Type 2 diabetes mellitus without complication, without long-term current use of insulin (Chronic 05/21/17) History of pulmonary embolism (Chronic) long-term current use of anticoagulant therapy (Chronic 03/02/15) Idiopathic PE ~2013 Hyperlipidemia (Chronic) Tubular adenoma of colon (Chronic 03/30/15) Family history of colon cancer (Chronic 08/09/15) Obesity (Chronic) Goiter (Chronic) [facility] Endo Gout (Chronic) Seasonal allergies (Chronic) Medical History Acute prostatitis Bacteremia due to Gram-negative bacteria Edentulous Gout, unspecified h/o elevated psa Nephrolithiasis Post herpetic neuralgia Pulmonary embolism (10/16/13) Sepsis Thyroid enlargement (07/12/13) Urinary retention UTI (urinary tract infection), bacterial Surgical History thyroid biopsy (11/15/13) at [facility] Family History Mother Essential hypertension Stroke Father Spinal stenosis Other Personal history of malignant neoplasm Social History Smoking/Tobacco Use Status: Never Smoking risk assessment performed?: Yes Alcohol Intake: former Year quit: 2008 Drug use: Never Substance use type: does not use Adopted: No Caregiver/Support person: No Foster care: No Household members: family Housing: house Number of Children: 0 Communication Needs: Corrective Lenses current occupation: used to work in [employer] Pets and animals: Yes What type of physical activity do you participate in: none and other Details: shoveling snow Duration: 45-60 minutes/day Seatbelt use: always Drive intox or ride w/intox driver material handler: No Water heater temp set <120 deg: No Working smoke detector in home: No Fire extinguisher in home: Yes Carbon monox detector in home: No Do you feel safe at home: Yes Do you feel safe in your relationship?: Yes Victim of physical abuse: No Victim of emotional abuse: No Victim of sexual abuse: No Exam Narrative Exam Narrative: GEN: awake, alert, oriented 3. Pleasant, well groomed, interactive. HEAD: Normocephalic, atraumatic EYES: PERRL, EOMI NECK: Full ROM, no DARWIN, no menigismus CHEST/RESP: Nontender, clear to auscultation bilateral, no wheeze/rhonchi/rales CARDIOVASCULAR: RRR, no murmur, rub casi. 2+ Rad pulse bilateral EXT: Full ROM, the left thumb has mild erythema on the ulnar aspect, no fluctuance or swelling, no foreign body appreciated Neuro: Grossly normal neurologic exam, conversant, interactive. Psych: Speech fluent, thoughts congruent, affect normal Course Vital Signs Vital signs: Vital Signs Temperature 37.1 C 12/25/21 01:44 Pulse 79 12/25/21 01:44 Respiratory Rate 20 12/25/21 01:44 Blood Pressure 133/71 12/25/21 01:44 Pulse Oximetry 98 12/25/21 01:44 Temperature 37.1 C 12/25/21 01:44 Temperature Source Oral 12/25/21 01:44 Pulse 79 12/25/21 01:44 Respiratory Rate 20 12/25/21 01:44 Respiratory Effort 12/25/21 01:49 Blood Pressure 133/71 12/25/21 01:44 Blood Pressure Position Sitting 12/25/21 01:44 Pulse Oximetry 98 12/25/21 01:44 Oxygen Delivery Method Room Air 12/25/21 01:44 Oxygen Flow Rate 0 12/25/21 01:44
[2021-12-25] MEDS: Cephalexin 500 MG CAP, 2 CAPS/BTL PO (02:00)
== END 2021-12-25 02:00 | disposition home or self-care (01) ==
LOC: ER 02:03
PROVIDERS: Emergency Provider Emergency Medicine; PCP Nurse Practitioner Adult Health
DX: L03.012 Cellulitis of left finger (principal)
CPT/HCPCS: 99283; 85610

== ENCOUNTER 2022-05-03 02:42 | Outpatient (CLI) | payer MEDICARE, SELFPAY ==
[2022-05-03 09:18] LABS: Hemoglobin A1C 6.8 % (<5.7)
[2022-05-03 09:34] LABS: COMMENT (LAB VIEW ONLY) 123.19 mg/dL; Microalb ug/mg Crea 7.1 ug/mg Cr
[2022-05-03 09:47] LABS: Anion Gap 6.1 mmol/L (3-11); BUN 16 mg/dL (7-18); CO2 31.9 mmol/L (21.0-32.0); Calcium 9.1 mg/dL (8.5-10.1); Calculated LDL 62 mg/dL (<100); Chloride 105 mmol/L (98-107); Cholesterol 116 mg/dL (<200); Estimated GFR 81.47 (mL/min/1.73m2); Glucose 161 mg/dL (74-106); HDL Cholesterol 35 mg/dL (40-60); Potassium 4.2 mmol/L (3.5-5.1); Sodium 143 mmol/L (136-145); TSH (W/Ref FT4) 0.97 uIU/mL (0.36-3.74); Triglyceride 97 mg/dL (<150)
[2022-05-03 10:14] LABS: Uric Acid 6.5 mg/dL (3.5-7.2)
== END 2022-05-03 02:43 | disposition home or self-care (01) ==
LOC: LBO 02:42
PROVIDERS: PCP Nurse Practitioner Adult Health; Referring Provider Nurse Practitioner Adult Health; Visit Provider Nurse Practitioner Adult Health
DX: E04.9 Nontoxic goiter, unspecified (principal); E11.9 Type 2 diabetes mellitus without complications; E78.2 Mixed hyperlipidemia; J30.1 Allergic rhinitis due to pollen; R03.0 Elevated blood-pressure reading, without diagnosis of hypertension; M10.9 Gout, unspecified; Z79.01 Long term (current) use of anticoagulants; Z79.4 Long term (current) use of insulin; Z80.0 Family history of malignant neoplasm of digestive organs; Z86.711 Personal history of pulmonary embolism
CPT/HCPCS: 36415; 80048; 80061; 82043; 82570; 83036; 84443; 84550

== ENCOUNTER → 2022-06-12 09:14 | Outpatient (BNVA) | payer MEDICARE, SELFPAY | PROVIDERS: PCP Nurse Practitioner Adult Health; Visit Provider Nurse Practitioner Gerontology | DX: R33.9 Retention of urine, unspecified (principal) | CPT/HCPCS: 51798; 99213 ==

== ENCOUNTER 2022-09-21 14:53 | Emergency (ER) | payer MEDICARE, SELFPAY ==
[2022-09-21 15:11] VITALS: BP 144/71; PULSE 77; RESP 18; TEMP 37.2; O2SAT 98
[2022-09-21 16:10] LABS: Abs Immature Grans 0.05 10^3/uL (0.0-0.06); Absolute Basophil Count 0.05 10^3/uL (0.0-0.2); Absolute Eosinophil Count 0.37 10^3/uL (0.0-0.7); Absolute Lymphocyte Count 1.34 10^3/uL (1.2-3.4); Absolute Monocyte Count 0.91 10^3/uL (0.1-0.8); Absolute Neutrophil Count 5.96 10^3/uL (1.2-6.7); Basophils % 0.6; Eosinophils % 4.3; HGB 15.1 g/dL (13.5-17.5); Immature Grans % 0.6; Lymphocytes % 15.4; MCH 31.7 pg (27.0-33.0); MCHC 34.3 % (32.0-36.0); MCV 92 fL (80-95); MPV 8.9 fL (8.0-11.0); Monocytes % 10.5; Neutrophils % 68.6; Platelet Count 209 10^3/uL (130-400); RBC 4.76 10^6/uL (4.36-5.78); RDW 12.9 % (11.8-14.1); RDW-SD 44.1 fL; WBC 8.68 10^3/uL (4.4-10.8)
[2022-09-21 16:26] LABS: ALT 30 U/L (16-63); AST 14 U/L (15-37); Albumin 3.7 g/dL (3.4-5.0); Alkaline Phosphatase 107 U/L (46-116); Anion Gap 8.9 mmol/L (3-11); BUN 16 mg/dL (7-18); Bilirubin, Total 0.5 mg/dL (0.2-1.0); CO2 28.1 mmol/L (21.0-32.0); Calcium 8.9 mg/dL (8.5-10.1); Chloride 104 mmol/L (98-107); Estimated GFR 81.47 (mL/min/1.73m2); Glucose 154 mg/dL (74-106); Potassium 3.9 mmol/L (3.5-5.1); Sodium 141 mmol/L (136-145); Total Protein 6.7 g/dL (6.4-8.2)
--- NOTE | 2022-09-21 16:46 | ED.GENADUL_ITS ---
Discharge Plan Disposition Patient Disposition: Home Condition: Good Discharge Details Clinical Impression: Diabetes mellitus Primary Care Provider: Brittany Richard ED Provider: Najma Garcia Home Meds and New Rx's Prescriptions: New (DME) FreeStyle Nata 2 Sensor Kit See Rx Instructions .Route Qty: 1 0RF Rx Instructions: As directed (DME) FreeStyle Nata 2 [place] Misc See Rx Instructions .Route Qty: 1 0RF Rx Instructions: As directed Continued tamsulosin [Flomax] 0.4 mg capsule 0.8 mg PO DAILY Qty: 180 3RF warfarin 5 mg tablet 5 mg PO DAILY Qty: 90 3RF Protocol: Dose Management Condition: Friday Dose/Route: 2.5 mg Instruction: 0.5 x 5 mg tablets Condition: Friday Dose/Route: 2.5 mg Instruction: 0.5 x 5 mg tablets Condition: Friday Dose/Route: 5 mg Instruction: 1 x 5 mg tablet Condition: Friday Dose/Route: 2.5 mg Instruction: 0.5 x 5 mg tablets Condition: Dose/Route: 5 mg Instruction: 1 x 5 mg tablet Condition: Friday Dose/Route: 5 mg Instruction: 1 x 5 mg tablet Condition: Friday Dose/Route: 5 mg Instruction: 1 x 5 mg tablet Protocol Text: Adjustment Start Date: Friday09/09/22 INR Value: 2.3 INR Date: 09/09/22 Recheck Date: 10/07/22 Additional Instructions: Pt will cont same warfarin dose and recheck INR in 4 weeks lisinopril 2.5 mg tablet 2.5 mg PO DAILY Qty: 90 3RF atorvastatin 20 mg tablet 20 mg PO DAILY Qty: 90 3RF allopurinol 100 mg tablet 100 mg PO DAILY Qty: 90 3RF multivitamin [Daily Multi-Vitamin] tablet 1 tab PO DAILY PRN (DME) FreeStyle Nata 2 [place] Misc See Rx Instructions .ROUTE .MEDSUPPLY Qty: 1 0RF Rx Instructions: As directed (DME) FreeStyle Nata 2 Sensor Kit See Rx Instructions .ROUTE .MEDSUPPLY Qty: 2 12RF Rx Instructions: As directed metformin 500 mg tablet extended release 24hr 500 mg PO BID PRN Discharge Instructions Instructions: Diabetes and Nutrition (ED) Additional Instructions: Please replace the sensor for your glucose monitor. Do not rely on the readings you are getting from your current sensor. If you feel lightheaded or like you are going to pass out, having something to eat or drink with some carbs in it. Because you are not on insulin, it is unlikely for you to become very hypoglycemic. Call your primary care doctor on Friday to schedule an appointment to be seen as soon as possible to follow up on your visit here. Return to the emergency department for new or worsening symptoms. Referrals: Brittany Richard [employer]NAGER [employer] [Primary Care Provider] - Discharge Data Discharge Date/Time-TO BE ENTERED AT DEPARTURE: 09/21/22 17:01 Medical Decision Making 67yo male with T2DM presenting for hypoglycemia; blood glucose on his CGM in 50's despite treating with carbs/soda; had no symptoms of hypoglycemia at any time. FSBG here on arrival >200. Vital signs and physical exam reassuring. Patient is not on insulin and only takes metformin as needed. Glucose monitor appears to be malfunctioning. CBC & CMP as below, blood glucose 154 (monitor reading 51). Given T2DM only on occasional metformin, minimal risk for hypoglycemia and no emergent need for close glucose monitoring. Not concerned for acute health problems related to either hypo or hyperglycemia Advised replacement of sensor, close followup with PCP. Discharged home; discharge in structions including return precautions were reviewed with patient who verbalized understanding. All questions were answered and they are in full agreement with the plan. Lab Data Lab results reviewed: Yes I reviewed the patient's lab results. Labs: Laboratory Tests Range/Units 09/21/22 09/21/22 16:04 16:04 WBC (4.4-10.8) 10^3/uL 8.68 RBC (4.36-5.78) 10^6/uL 4.76 Hgb (13.5-17.5) g/dL 15.1 Hct (40.0-50.0) % 44.0 MCV (80-95) fL 92 MCH (27.0-33.0) pg 31.7 MCHC (32.0-36.0) % 34.3 RDW (11.8-14.1) % 12.9 Plt Count (130-400) 10^3/uL 209 MPV (8.0-11.0) fL 8.9 Immature Gran % 0.6 Neutrophils % 68.6 Lymphocytes % 15.4 Monocytes % 10.5 Eosinophils % 4.3 Basophils % 0.6 Nucleated RBC % (0.0-0.3) % 0.0 Absolute Neutrophils (1.2-6.7) 10^3/uL 5.96 Absolute Lymphocytes (1.2-3.4) 10^3/uL 1.34 Absolute Monocytes (0.1-0.8) 10^3/uL 0.91 H Absolute Eosinophils (0.0-0.7) 10^3/uL 0.37 Absolute Basophils (0.0-0.2) 10^3/uL 0.05 Sodium (136-145) mmol/L 141 Potassium (3.5-5.1) mmol/L 3.9 Chloride (98-107) mmol/L 104 Carbon Dioxide (21.0-32.0) mmol/L 28.1 Anion Gap (3-11) mmol/L 8.9 BUN (7-18) mg/dL 16 Creatinine (0.70-1.30) mg/dL 1.0 Est GFR (CKD-EPI 2020) (mL/min/1.73m2) 81.47 Glucose (74-106) mg/dL 154 H Calcium (8.5-10.1) mg/dL 8.9 Total Bilirubin (0.2-1.0) mg/dL 0.5 AST (15-37) U/L 14 L ALT (16-63) U/L 30 Alkaline Phosphatase (46-116) U/L 107 Total Protein (6.4-8.2) g/dL 6.7 Albumin (3.4-5.0) g/dL 3.7 HPI General Mode of arrival: ambulatory . Date/Time Provider Initiated Documentation: 09/21/22 15:08 . Limitations to Documentation: no limitations . Information obtained by: patient . HPI Narrative: 67yo male with T2DM presenting for hypoglycemia. Continuous glucose monitor has been reading in the 50's; he has been treating with carbs and soda at home without improvement. Feels well, no symptoms. Not on insulin; takes metformin occasionally, if his blood glucose is consistenly higher than 200. He is otherwise in his usual state of health with no fevers, chills, rash, nausea, vomiting, abdominal pain, chest pain, shortness of breath, or other concerns. Related Data Home Medications Medication Instructions Recorded Confirmed multivitamin (Daily Multi-Vitamin 1 tab PO DAILY PRN 08/06/18 09/21/22 tablet) flash glucose scanning reader #1 ea 04/12/21 08/12/22 (FreeStyle Nata 2 [place]) flash glucose sensor (FreeStyle #2 ea 12/05/21 08/12/22 Nata 2 Sensor kit) allopurinol 100 mg tablet 100 mg PO DAILY #90 tabs 05/08/22 09/21/22 atorvastatin 20 mg tablet 20 mg PO DAILY #90 tabs 05/08/22 09/21/22 lisinopril 2.5 mg tablet 2.5 mg PO DAILY #90 tabs 05/08/22 09/21/22 warfarin 5 mg tablet 5 mg PO DAILY #90 tabs 05/08/22 09/21/22 tamsulosin 0.4 mg capsule (Flomax) 0.8 mg PO DAILY #180 caps 08/01/22 09/21/22 flash glucose scanning reader #1 ea 09/21/22 (FreeStyle Nata 2 [place]) flash glucose sensor (FreeStyle #1 ea 09/21/22 Nata 2 Sensor kit) metformin 500 mg tablet,extended 500 mg PO BID PRN 09/21/22 09/21/22 release 24hr Previous Rx's Medication Instructions Recorded flash glucose scanning reader #1 ea 04/12/21 (FreeStyle Nata 2 [place]) flash glucose sensor (FreeStyle #2 ea 12/05/21 Nata 2 Sensor kit) allopurinol 100 mg tablet 100 mg PO DAILY #90 tabs 05/08/22 atorvastatin 20 mg tablet 20 mg PO DAILY #90 tabs 05/08/22 lisinopril 2.5 mg tablet 2.5 mg PO DAILY #90 tabs 05/08/22 warfarin 5 mg tablet 5 mg PO DAILY #90 tabs 05/08/22 tamsulosin 0.4 mg capsule (Flomax) 0.8 mg PO DAILY #180 caps 08/01/22 flash glucose scanning reader #1 ea 09/21/22 (FreeStyle Nata 2 [place]) flash glucose sensor (FreeStyle #1 ea 09/21/22 Nata 2 Sensor kit) Allergies Allergy/AdvReac Type Severity Reaction Status Date / Time No Known Drug Allergies Allergy Verified 09/21/22 15:17 General Stated Complaint: Diabetes JOHNATHAN: 3 Review of Systems Narrative: see HPI PFSH All Active Problems (Updated 09/21/22 @ 16:48 by Najma Garcia MD) Diabetes mellitus (Chronic) Type 2 diabetes mellitus without complication, without long-term current use of insulin (Chronic 05/21/17) History of pulmonary embolism (Chronic) snf current use of anticoagulant therapy (Chronic 03/02/15) Idiopathic PE ~2013 Hyperlipidemia (Chronic) Tubular adenoma of colon (Chronic 03/30/15) Family history of colon cancer (Chronic 08/09/15) Obesity (Chronic) Goiter (Chronic) [facility] [place] Endo Gout (Chronic) Medical History (Updated 09/21/22 @ 16:48 by Najma Garcia MD) Acute prostatitis Bacteremia due to Gram-negative bacteria Edentulous Elevated blood pressure reading without diagnosis of hypertension h/o elevated psa Nephrolithiasis Post herpetic neuralgia Pulmonary embolism (10/16/13) Seasonal allergies Sepsis Thyroid enlargement (07/12/13) Urinary retention UTI (urinary tract infection), bacterial Surgical History thyroid biopsy (11/15/13) at [facility] [place] Family History Mother Essential hypertension Stroke Father Spinal stenosis Other Personal history of malignant neoplasm Social History Smoking/Tobacco Use Status: Never Smoking risk assessment performed?: Yes Alcohol Intake: former Year quit: 2008 Drug use: Never Substance use type: does not use Adopted: No Caregiver/Support person: No Foster care: No Household members: family Housing: house Number of Children: 0 Communication Needs: Corrective Lenses current occupation: used to work in [employer] Pets and animals: Yes What type of physical activity do you participate in: none and other Details: shoveling snow Duration: 45-60 minutes/day Seatbelt use: always Drive 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 Head: Normocephalic, atraumatic Neck: Trachea midline, Neck supple. ENT: MMM. No oropharygeal lesions or exudate. Cardiac: RRR, no murmurs appreciated Resp: No respiratory distress. CTAB. Abd: Soft, non-distended, nontender : No suprapubic tenderness. No CVA tenderness. Extremities: No deformities. No peripheral edema. Neurologic: GCS 15. Moves all extremities freely against gravity Course Vital Signs Vital signs: Vital Signs Temperature 37.2 C 09/21/22 15:11 Pulse 77 09/21/22 15:11 Respiratory Rate 18 09/21/22 15:11 Blood Pressure 144/71 H 09/21/22 15:11 Pulse Oximetry 98 09/21/22 15:11 Temperature 37.2 C 09/21/22 15:11 Temperature Source Skin 09/21/22 15:11 Pulse 77 09/21/22 15:11 Respiratory Rate 18 09/21/22 15:11 Respiratory Effort Normal 09/21/22 16:07 Blood Pressure 144/71 H 09/21/22 15:11 Blood Pressure Position Sitting 09/21/22 15:11 Pulse Oximetry 98 09/21/22 15:11 Oxygen Delivery Method Room Air 09/21/22 15:11 Oxygen Flow Rate 0 09/21/22 15:11 Pain Level 0 09/21/22 15:11 Lab/Test Results Lab/Test Results: Laboratory Tests Range/Units 09/21/22 09/21/22 16:04 16:04 WBC (4.4-10.8) 10^3/uL 8.68 RBC (4.36-5.78) 10^6/uL 4.76 Hgb (13.5-17.5) g/dL 15.1 Hct (40.0-50.0) % 44.0 MCV (80-95) fL 92 MCH (27.0-33.0) pg 31.7 MCHC (32.0-36.0) % 34.3 RDW (11.8-14.1) % 12.9 Plt Count (130-400) 10^3/uL 209 MPV (8.0-11.0) fL 8.9 Immature Gran % 0.6 Neutrophils % 68.6 Lymphocytes % 15.4 Monocytes % 10.5 Eosinophils % 4.3 Basophils % 0.6 Nucleated RBC % (0.0-0.3) % 0.0 Absolute Neutrophils (1.2-6.7) 10^3/uL 5.96 Absolute Lymphocytes (1.2-3.4) 10^3/uL 1.34 Absolute Monocytes (0.1-0.8) 10^3/uL 0.91 H Absolute Eosinophils (0.0-0.7) 10^3/uL 0.37 Absolute Basophils (0.0-0.2) 10^3/uL 0.05 Sodium (136-145) mmol/L 141 Potassium (3.5-5.1) mmol/L 3.9 Chloride (98-107) mmol/L 104 Carbon Dioxide (21.0-32.0) mmol/L 28.1 Anion Gap (3-11) mmol/L 8.9 BUN (7-18) mg/dL 16 Creatinine (0.70-1.30) mg/dL 1.0 Est GFR (CKD-EPI 2020) (mL/min/1.73m2) 81.47 Glucose (74-106) mg/dL 154 H Calcium (8.5-10.1) mg/dL 8.9 Total Bilirubin (0.2-1.0) mg/dL 0.5 AST (15-37) U/L 14 L ALT (16-63) U/L 30 Alkaline Phosphatase (46-116) U/L 107 Total Protein (6.4-8.2) g/dL 6.7 Albumin (3.4-5.0) g/dL 3.7
[2022-09-21 17:00] VITALS: BP 123/59; PULSE 74; RESP 17; O2SAT 100
== END 2022-09-21 17:01 | disposition home or self-care (01) ==
PROVIDERS: Emergency Provider Student in an Organized Health Care Education/Training Program; PCP Nurse Practitioner Adult Health
DX: E11.9 Type 2 diabetes mellitus without complications (principal)
CPT/HCPCS: 80053; 82962; 99283; 85025; 99282

== ENCOUNTER 2022-11-05 02:46 | Outpatient (CLI) | payer MEDICARE, SELFPAY ==
[2022-11-05 11:53] LABS: Anion Gap 6.8 mmol/L (3-11); BUN 11 mg/dL (7-18); CO2 28.2 mmol/L (21.0-32.0); Calcium 9.2 mg/dL (8.5-10.1); Calculated LDL 42 mg/dL (<100); Chloride 105 mmol/L (98-107); Cholesterol 102 mg/dL (<200); Estimated GFR 81.47 (mL/min/1.73m2); Glucose 149 mg/dL (74-106); HDL Cholesterol 34 mg/dL (40-60); Potassium 4.1 mmol/L (3.5-5.1); Sodium 140 mmol/L (136-145); Triglyceride 131 mg/dL (<150)
== END 2022-11-05 02:47 | disposition home or self-care (01) ==
LOC: LBO 02:47
PROVIDERS: PCP Nurse Practitioner Adult Health; Referring Provider Nurse Practitioner Adult Health; Visit Provider Nurse Practitioner Adult Health
DX: E78.2 Mixed hyperlipidemia (principal); E11.9 Type 2 diabetes mellitus without complications
CPT/HCPCS: 36415; 80048; 80061

== ENCOUNTER 2022-11-26 18:23 | Emergency (ER) | payer MEDICARE, SELFPAY ==
[2022-11-26 18:24] VITALS: BP 142/82; PULSE 93; RESP 15; TEMP 36.9; O2SAT 97
[2022-11-26] MEDS: predniSONE 20 MG TAB 40 MG PO (19:50)
--- NOTE | 2022-11-28 10:29 | ED.GENADUL_ITS ---
Discharge Plan Disposition Patient Disposition: Home Discharge Details Clinical Impression: Contact dermatitis Primary Care Provider: Brittany Richard ED Provider: Veronika Borrego Home Meds and New Rx's Prescriptions: New prednisone 20 mg tablet 40 mg PO ONCE Qty: 10 0RF Continued tamsulosin [Flomax] 0.4 mg capsule 0.8 mg PO DAILY Qty: 180 3RF (DME) 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 meter Misc See Rx Instructions .MEDSUPPLY Qty: 1 0RF Rx Instructions: As directed to check blood glucose daily. No insulin. Dispense covered brand. (DME) Blood Glucose Test Strip See Rx Instructions .MEDSUPPLY Qty: 100 3RF Rx Instructions: As directed to check blood glucose daily. No insulin. Dispense covered brand. (DME) lancets Misc See Rx Instructions .MEDSUPPLY Qty: 100 3RF Rx Instructions: As directed to check blood glucose daily. No insulin. Dispense covered brand. warfarin 5 mg tablet 5 mg PO DAILY Qty: 90 3RF Protocol: Dose Management Condition: Friday Dose/Route: 2.5 mg Instruction: 0.5 x 5 mg tablets Condition: Friday Dose/Route: 2.5 mg Instruction: 0.5 x 5 mg tablets Condition: Friday Dose/Route: 5 mg Instruction: 1 x 5 mg tablet Condition: Friday Dose/Route: 2.5 mg Instruction: 0.5 x 5 mg tablets Condition: Dose/Route: 5 mg Instruction: 1 x 5 mg tablet Condition: Friday Dose/Route: 5 mg Instruction: 1 x 5 mg tablet Condition: Friday Dose/Route: 5 mg Instruction: 1 x 5 mg tablet Protocol Text: Adjustment Start Date: 11/07/22 INR Value: 2.2 INR Date: 11/07/22 Recheck Date: 12/05/22 lisinopril 2.5 mg tablet 2.5 mg PO DAILY Qty: 90 3RF atorvastatin 20 mg tablet 20 mg PO DAILY Qty: 90 3RF allopurinol 100 mg tablet 100 mg PO DAILY Qty: 90 3RF multivitamin [Daily Multi-Vitamin] tablet 1 tab PO DAILY PRN (DME) FreeStyle Nata 2 Sensor Kit See Rx Instructions .Route Qty: 2 11RF Rx Instructions: As directed metformin 500 mg tablet extended release 24hr 500 mg PO BID PRN (DME) FreeStyle Nata 2 [place] [facility] [place] See Rx Instructions .Route Qty: 1 0RF Rx Instructions: As directed Discharge Instructions Instructions: Dermatitis (ED) Additional Instructions: Take prednisone as prescribed Keep wounds clean and dry, wash with soap and water, may apply calamine lotion topically or hydrocortisone cream topically While you are on prednisone it may increase your blood sugar, do not be alarmed when he stopped this medication and will decrease Return with spreading redness, fever, worsening pain Referrals: Brittany Richard NP [Primary Care Provider] - Discharge Data Discharge Date/Time-TO BE ENTERED AT DEPARTURE: 11/26/22 19:52 Medical Decision Making 67-year-old gentleman presenting with rash to left arm, left arm with contact dermatitis approximately 8 inches from central area, no evidence of secondary infection, neurovascularly intact, will place on prednisone for the next several days, patient is a diabetic, he is aware that this will temporarily increase his blood sugar levels and no which will self resolve after the prednisone has been discontinued We will apply Benadryl, topical hydrocortisone as needed Return precautions reviewed and patient expressed understanding HPI General Date/Time Provider Initiated Documentation: 11/26/22 18:45 . HPI Narrative: This 67-year-old male presents with a rash on left arm that started 3 days prior to arrival, states he was gardening prior to onset and describes the rash as itchy. Denies fever or chills. Does have history of diabetes, glucose has been within normal limits per patient. Known insulin-dependent diabetic. Related Data Home Medications Medication Instructions Recorded Confirmed multivitamin (Daily Multi-Vitamin 1 tab PO DAILY PRN 08/06/18 11/26/22 tablet) allopurinol 100 mg tablet 100 mg PO DAILY #90 tabs 05/08/22 11/26/22 atorvastatin 20 mg tablet 20 mg PO DAILY #90 tabs 05/08/22 11/26/22 lisinopril 2.5 mg tablet 2.5 mg PO DAILY #90 tabs 05/08/22 11/26/22 warfarin 5 mg tablet 5 mg PO DAILY #90 tabs 05/08/22 11/26/22 tamsulosin 0.4 mg capsule (Flomax) 0.8 mg PO DAILY #180 caps 08/01/22 11/26/22 flash glucose scanning reader #1 ea 09/21/22 11/26/22 (FreeStyle Nata 2 [place]) metformin 500 mg tablet,extended 500 mg PO BID PRN 09/21/22 11/26/22 release 24hr blood sugar diagnostic (Blood #100 ea 09/24/22 11/26/22 Glucose Test strips) 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 meter #1 ea 09/24/22 11/26/22 lancets #100 ea 09/24/22 11/26/22 flash glucose sensor (FreeStyle #2 ea 11/20/22 11/26/22 Nata 2 Sensor kit) prednisone 20 mg tablet 40 mg PO ONCE #10 tabs 11/26/22 Previous Rx's Medication Instructions Recorded allopurinol 100 mg tablet 100 mg PO DAILY #90 tabs 05/08/22 atorvastatin 20 mg tablet 20 mg PO DAILY #90 tabs 05/08/22 lisinopril 2.5 mg tablet 2.5 mg PO DAILY #90 tabs 05/08/22 warfarin 5 mg tablet 5 mg PO DAILY #90 tabs 05/08/22 tamsulosin 0.4 mg capsule (Flomax) 0.8 mg PO DAILY #180 caps 08/01/22 flash glucose scanning reader #1 ea 09/21/22 (FreeStyle Nata 2 [place]) blood sugar diagnostic (Blood #100 ea 09/24/22 Glucose Test strips) 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 meter #1 ea 09/24/22 lancets #100 ea 09/24/22 flash glucose sensor (FreeStyle #2 ea 11/20/22 Nata 2 Sensor kit) prednisone 20 mg tablet 40 mg PO ONCE #10 tabs 11/26/22 Allergies Allergy/AdvReac Type Severity Reaction Status Date / Time No Known Drug Allergies Allergy Verified 11/26/22 18:28 General Stated Complaint: RashLesion JOHNATHAN: 4 PFSH All Active Problems (Updated 11/26/22 @ 19:49 by PB Sweeney) Contact dermatitis (Acute) Type 2 diabetes mellitus without complication, without long-term current use of insulin (Chronic 05/21/17) History of pulmonary embolism (Chronic) custodial current use of anticoagulant therapy (Chronic 03/02/15) Idiopathic PE ~2013; no RX drug coverage, so uses Warfarin Hyperlipidemia (Chronic) Tubular adenoma of colon (Chronic 03/30/15) Family history of colon cancer (Chronic 08/09/15) Obesity (Chronic) Goiter (Chronic) [facility] [place] Endo Gout (Chronic) Medical History Acute prostatitis Bacteremia due to Gram-negative bacteria Edentulous Elevated blood pressure reading without diagnosis of hypertension h/o elevated psa Nephrolithiasis Post herpetic neuralgia Pulmonary embolism (10/16/13) Seasonal allergies Sepsis Thyroid enlargement (07/12/13) Urinary retention UTI (urinary tract infection), bacterial Surgical History thyroid biopsy (11/15/13) at [facility] Family History Mother Essential hypertension Stroke Father Spinal stenosis Other Personal history of malignant neoplasm Social History Smoking/Tobacco Use Status: Never Smoking risk assessment performed?: Yes Alcohol Intake: former Year quit: 2008 Drug use: Never Substance use type: does not use Adopted: No Caregiver/Support person: No Foster care: No Household members: family Housing: house Number of Children: 0 Communication Needs: Corrective Lenses current occupation: used to work in [employer] Pets and animals: Yes What type of physical activity do you participate in: none and other Details: shoveling snow Duration: 45-60 minutes/day Seatbelt use: always 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 Water heater temp set <120 deg: No Working smoke detector in home: No Fire extinguisher in home: Yes Carbon monox detector in home: No Do you feel safe at home: Yes Do you feel safe in your relationship?: Yes Victim of physical abuse: No Victim of emotional abuse: No Victim of sexual abuse: No Course Vital Signs Vital signs: Vital Signs Temperature 36.9 C 11/26/22 18:24 Pulse 93 H 11/26/22 18:24 Respiratory Rate 15 11/26/22 18:24 Blood Pressure 142/82 H 11/26/22 18:24 Pulse Oximetry 97 11/26/22 18:24 Temperature 36.9 C 11/26/22 18:24 Temperature Source Temporal Artery Scan 11/26/22 18:24 Pulse 93 H 11/26/22 18:24 Respiratory Rate 15 11/26/22 18:24 Respiratory Effort Normal 11/26/22 18:27 Blood Pressure 142/82 H 11/26/22 18:24 Blood Pressure Position Sitting 11/26/22 18:24 Pulse Oximetry 97 11/26/22 18:24 Oxygen Delivery Method Room Air 11/26/22 18:24 Oxygen Flow Rate 0 11/26/22 18:24 Pain Level 0 11/26/22 18:24
== END 2022-11-26 19:52 | disposition home or self-care (01) ==
PROVIDERS: Emergency Provider Physician Assistant; PCP Nurse Practitioner Adult Health
DX: L25.9 Unspecified contact dermatitis, unspecified cause; E11.9 Type 2 diabetes mellitus without complications; E78.5 Hyperlipidemia, unspecified; Z79.4 Long term (current) use of insulin; Z79.899 Other long term (current) drug therapy
CPT/HCPCS: 99283; J7512

== ENCOUNTER 2022-12-05 02:46 | Emergency (ER) | payer MEDICARE, SELFPAY ==
[2022-12-05 02:51] VITALS: BP 146/79; PULSE 62; RESP 18; TEMP 36.5; O2SAT 96
--- NOTE | 2022-12-05 03:02 | W.ED.GENAD ---
Discharge Plan Disposition Patient Disposition: Home Condition: Stable Discharge Details Clinical Impression: Rash Primary Care Provider: Brittany Richard ED Provider: Vimal Patel Home Meds and New Rx's Prescriptions: New fluconazole 200 mg tablet 200 mg PO .once a week Qty: 3 0RF Rx Instructions: one tablet by mouth once a week for 3 weeks Continued tamsulosin [Flomax] 0.4 mg capsule 0.8 mg PO DAILY Qty: 180 3RF (DME) 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 meter Misc See Rx Instructions .MEDSUPPLY Qty: 1 0RF Rx Instructions: As directed to check blood glucose daily. No insulin. Dispense covered brand. (DME) Blood Glucose Test Strip See Rx Instructions .MEDSUPPLY Qty: 100 3RF Rx Instructions: As directed to check blood glucose daily. No insulin. Dispense covered brand. (DME) lancets Misc See Rx Instructions .MEDSUPPLY Qty: 100 3RF Rx Instructions: As directed to check blood glucose daily. No insulin. Dispense covered brand. warfarin 5 mg tablet 5 mg PO DAILY Qty: 90 3RF Protocol: Dose Management Condition: Friday Dose/Route: 2.5 mg Instruction: 0.5 x 5 mg tablets Condition: Friday Dose/Route: 2.5 mg Instruction: 0.5 x 5 mg tablets Condition: Friday Dose/Route: 5 mg Instruction: 1 x 5 mg tablet Condition: Friday Dose/Route: 2.5 mg Instruction: 0.5 x 5 mg tablets Condition: Dose/Route: 5 mg Instruction: 1 x 5 mg tablet Condition: Friday Dose/Route: 5 mg Instruction: 1 x 5 mg tablet Condition: Friday Dose/Route: 5 mg Instruction: 1 x 5 mg tablet Protocol Text: Adjustment Start Date: Friday12/04/22 INR Value: 2.8 INR Date: 12/04/22 Recheck Date: 01/01/23 lisinopril 2.5 mg tablet 2.5 mg PO DAILY Qty: 90 3RF atorvastatin 20 mg tablet 20 mg PO DAILY Qty: 90 3RF allopurinol 100 mg tablet 100 mg PO DAILY Qty: 90 3RF multivitamin [Daily Multi-Vitamin] tablet 1 tab PO DAILY PRN (DME) FreeStyle Nata 2 Sensor Kit See Rx Instructions .Route Qty: 2 11RF Rx Instructions: As directed metformin 500 mg tablet extended release 24hr 500 mg PO BID PRN (DME) FreeStyle Nata 2 [place] Misc See Rx Instructions .Route Qty: 1 0RF Rx Instructions: As directed Discontinued prednisone 20 mg tablet 40 mg PO ONCE Qty: 10 0RF Discharge Instructions Instructions: Acute Rash (ED) Additional Instructions: You can also use topical clotrimazole which is over the counter follow up with your primary care provider in 1-2 weeks You will take the fluconazole once a week. You had a dose today so your next dose will be on 12/12 if you feel more ill, have severe pain or fevers return to the emergency department Medical Decision Making 67 yo male comes in with continued rash on his left forearm and now is on his legs for a week. Denies fevers, chills or pain but does state the rash is mildly itchy. He was seen last week and put on prednisone for 5 days with no change in the rash. HE is caox4 and appears well on arrival. HE has multiple circular and oval pigmented lesions on his left forearm and both inner thighs, no pain or tenderness or warmth. They range in size from approximately 2-4cm. Lesions appear to be most likely tinea and given no improvement and actually worsened with prednisone doubt dermatitis vs vasculitis. No findings to suggest cellulitis or other bacterial infection. Will start on oral fluconazole once a week for 4 weeks and have him f/u with his pcp, return precautions given Differential Diagnosis Differential Diagnosis: dermatitis, tinea HPI General Mode of arrival: ambulatory. Date/Time Provider Initiated Documentation: 12/05/22 02:47. Limitations to Documentation: no limitations. Information obtained by: patient. History of Present Illness 67 year old M presents to the emergency department with the chief complaint of rash, described as moderate, Patient started experiencing this week(s) (1) and it has been constant. No relieving factors improve symptom(s), Patient notes denies fever/chills and weakness. Related Data Home Medications Medication Instructions Recorded Confirmed multivitamin (Daily Multi-Vitamin 1 tab PO DAILY PRN 08/06/18 11/26/22 tablet) allopurinol 100 mg tablet 100 mg PO DAILY #90 tabs 05/08/22 11/26/22 atorvastatin 20 mg tablet 20 mg PO DAILY #90 tabs 05/08/22 11/26/22 lisinopril 2.5 mg tablet 2.5 mg PO DAILY #90 tabs 05/08/22 11/26/22 warfarin 5 mg tablet 5 mg PO DAILY #90 tabs 05/08/22 11/26/22 tamsulosin 0.4 mg capsule (Flomax) 0.8 mg PO DAILY #180 caps 08/01/22 11/26/22 flash glucose scanning reader #1 ea 09/21/22 11/26/22 (FreeStyle Nata 2 [place]) metformin 500 mg tablet,extended 500 mg PO BID PRN 09/21/22 11/26/22 release 24hr blood sugar diagnostic (Blood #100 ea 09/24/22 11/26/22 Glucose Test strips) 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 meter #1 ea 09/24/22 11/26/22 lancets #100 ea 09/24/22 11/26/22 flash glucose sensor (FreeStyle #2 ea 11/20/22 11/26/22 Nata 2 Sensor kit) fluconazole 200 mg tablet 200 mg PO .once a week #3 tabs 12/05/22 Previous Rx's Medication Instructions Recorded allopurinol 100 mg tablet 100 mg PO DAILY #90 tabs 05/08/22 atorvastatin 20 mg tablet 20 mg PO DAILY #90 tabs 05/08/22 lisinopril 2.5 mg tablet 2.5 mg PO DAILY #90 tabs 05/08/22 warfarin 5 mg tablet 5 mg PO DAILY #90 tabs 05/08/22 tamsulosin 0.4 mg capsule (Flomax) 0.8 mg PO DAILY #180 caps 08/01/22 flash glucose scanning reader #1 ea 09/21/22 (FreeStyle Nata 2 [place]) blood sugar diagnostic (Blood #100 ea 09/24/22 Glucose Test strips) 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 meter #1 ea 09/24/22 lancets #100 ea 09/24/22 flash glucose sensor (FreeStyle #2 ea 11/20/22 Nata 2 Sensor kit) fluconazole 200 mg tablet 200 mg PO .once a week #3 tabs 12/05/22 Allergies Allergy/AdvReac Type Severity Reaction Status Date / Time No Known Drug Allergies Allergy Verified 11/26/22 18:28 General Stated Complaint: RashLesion JOHNATHAN: 5 Review of Systems All systems reviewed & are unremarkable except as noted in HPI and below Constitutional Constitutional: Denies chills, Denies fever(s) and Denies weakness Cardiovascular Cardiovascular: Denies chest pain and Denies dyspnea Respiratory Respiratory: Denies cough and Denies dyspnea Gastrointestinal Gastrointestinal: Denies abdominal pain, Denies nausea and Denies vomiting Genitourinary Genitourinary: Denies dysuria Musculoskeletal Musculoskeletal: Denies joint swelling Integumentary/Breasts Skin/Breast: Reports rash Neurologic Neurologic: Denies weakness PFSH All Active Problems (Updated 12/05/22 @ 03:07 by Vimal Patel MD) Contact dermatitis (Acute) Rash (Acute) Type 2 diabetes mellitus without complication, without long-term current use of insulin (Chronic 05/21/17) History of pulmonary embolism (Chronic) 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 (Chronic 03/02/15) Idiopathic PE ~2013; no RX drug coverage, so uses Warfarin Hyperlipidemia (Chronic) Tubular adenoma of colon (Chronic 03/30/15) Family history of colon cancer (Chronic 08/09/15) Obesity (Chronic) Goiter (Chronic) [facility] Endo Gout (Chronic) Medical History Acute prostatitis Bacteremia due to Gram-negative bacteria Edentulous Elevated blood pressure reading without diagnosis of hypertension h/o elevated psa Nephrolithiasis Post herpetic neuralgia Pulmonary embolism (10/16/13) Seasonal allergies Sepsis Thyroid enlargement (07/12/13) Urinary retention UTI (urinary tract infection), bacterial Surgical History thyroid biopsy (11/15/13) at [facility] Family History Mother Essential hypertension Stroke Father Spinal stenosis Other Personal history of malignant neoplasm Social History Smoking/Tobacco Use Status: Never Smoking risk assessment performed?: Yes Alcohol Intake: former Year quit: 2008 Drug use: Never Substance use type: does not use Adopted: No Caregiver/Support person: No Foster care: No Household members: family Housing: house Number of Children: 0 Communication Needs: Corrective Lenses current occupation: used to work in [employer] Pets and animals: Yes What type of physical activity do you participate in: none and other Details: shoveling snow Duration: 45-60 minutes/day Seatbelt use: always 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 Water heater temp set <120 deg: No Working smoke detector in home: No Fire extinguisher in home: Yes Carbon monox detector in home: No Do you feel safe at home: Yes Do you feel safe in your relationship?: Yes Victim of physical abuse: No Victim of emotional abuse: No Victim of sexual abuse: No Exam Const General: no acute distress Orientation: alert HENMT Head: normal to inspection Ears: external ears normal General nose exam: external nose normal Mouth: moist mucous membranes Eyes General: appearance normal, both eyes and all related structures Neck Neck: normal visual inspection Resp Effort & Inspection: normal respiratory effort and able to speak in complete sentences Cardio Rate: regular rate Skin General skin exam: elasticity normal Neuro General: patient alert and patient oriented x3 Extrem General: normal to inspection Psych Mental Status: mental status grossly normal Course Vital Signs Vital signs: Vital Signs Temperature 36.5 C 12/05/22 02:51 Pulse 62 12/05/22 02:51 Respiratory Rate 18 12/05/22 02:51 Blood Pressure 146/79 H 12/05/22 02:51 Pulse Oximetry 96 12/05/22 02:51 Temperature 36.5 C 12/05/22 02:51 Pulse 62 12/05/22 02:51 Respiratory Rate 18 12/05/22 02:51 Respiratory Effort Normal 12/05/22 02:55 Blood Pressure 146/79 H 12/05/22 02:51 Blood Pressure Position Sitting 12/05/22 02:51 Pulse Oximetry 96 12/05/22 02:51 Oxygen Delivery Method Room Air 12/05/22 02:51 Oxygen Flow Rate 0 12/05/22 02:51 Pain Level 0 12/05/22 02:51
[2022-12-05] MEDS: Fluconazole 100 MG TAB 200 MG PO (03:08)
== END 2022-12-05 09:45 | disposition home or self-care (01) ==
PROVIDERS: Emergency Provider Emergency Medicine; PCP Nurse Practitioner Adult Health
DX: R21 Rash and other nonspecific skin eruption (principal)
CPT/HCPCS: 99283; 99284

== ENCOUNTER → 2022-12-18 11:17 | Outpatient (BNVA) | payer MEDICARE, SELFPAY | PROVIDERS: PCP Nurse Practitioner Adult Health; Visit Provider Nurse Practitioner Gerontology | DX: R33.8 Other retention of urine (principal); R35.0 Frequency of micturition; N39.0 Urinary tract infection, site not specified; A49.9 Bacterial infection, unspecified | CPT/HCPCS: 51798; 81003; 87088; 99213 ==

== ENCOUNTER 2022-12-18 12:02 | Outpatient (REF) | payer MEDICARE, SELFPAY | END 2022-12-18 12:03 | disposition home or self-care (01) | LOC: LBN 12:02 | PROVIDERS: PCP Nurse Practitioner Adult Health; Visit Provider Nurse Practitioner Gerontology | DX: R35.0 Frequency of micturition (principal) | CPT/HCPCS: 87086 ==

== ENCOUNTER 2023-02-02 22:02 | Emergency (ER) | payer MEDICARE, SELFPAY ==
[2023-02-02 22:10] VITALS: BP 131/82; PULSE 101; RESP 16; TEMP 36.6; O2SAT 96
[2023-02-02] MEDS: Ketorolac 15 MG/ML VIAL IM (22:29)
--- NOTE | 2023-02-02 22:29 | W.ED.GENAD ---
Discharge Plan Disposition Patient Disposition: Home Condition: Good Discharge Details Clinical Impression: Thrombophlebitis Primary Care Provider: Brittany Richard ED Provider: Najma Garcia Home Meds and New Rx's Prescriptions: No Action tamsulosin [Flomax] 0.4 mg capsule 0.8 mg PO DAILY Qty: 180 3RF (DME) 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 meter Misc See Rx Instructions .MEDSUPPLY Qty: 1 0RF Rx Instructions: As directed to check blood glucose daily. No insulin. Dispense covered brand. (DME) Blood Glucose Test Strip See Rx Instructions .MEDSUPPLY Qty: 100 3RF Rx Instructions: As directed to check blood glucose daily. No insulin. Dispense covered brand. (DME) lancets Misc See Rx Instructions .MEDSUPPLY Qty: 100 3RF Rx Instructions: As directed to check blood glucose daily. No insulin. Dispense covered brand. warfarin 5 mg tablet 5 mg PO DAILY Qty: 90 3RF Protocol: Dose Management Condition: Friday Dose/Route: 2.5 mg Instruction: 0.5 x 5 mg tablets Condition: Friday Dose/Route: 2.5 mg Instruction: 0.5 x 5 mg tablets Condition: Friday Dose/Route: 5 mg Instruction: 1 x 5 mg tablet Condition: Friday Dose/Route: 2.5 mg Instruction: 0.5 x 5 mg tablets Condition: Dose/Route: 5 mg Instruction: 1 x 5 mg tablet Condition: Friday Dose/Route: 5 mg Instruction: 1 x 5 mg tablet Condition: Friday Dose/Route: 5 mg Instruction: 1 x 5 mg tablet Protocol Text: Adjustment Start Date: Friday01/07/23 INR Value: 2.0 INR Date: 01/07/23 Recheck Date: 02/04/23 lisinopril 2.5 mg tablet 2.5 mg PO DAILY Qty: 90 3RF atorvastatin 20 mg tablet 20 mg PO DAILY Qty: 90 3RF allopurinol 100 mg tablet 100 mg PO DAILY Qty: 90 3RF multivitamin [Daily Multi-Vitamin] tablet 1 tab PO DAILY PRN (DME) FreeStyle Nata 2 Sensor Kit See Rx Instructions .Route Qty: 2 11RF Rx Instructions: As directed metformin 500 mg tablet extended release 24hr 500 mg PO BID PRN (DME) FreeStyle Nata 2 [place] Misc See Rx Instructions .Route Qty: 1 0RF Rx Instructions: As directed Discharge Instructions Instructions: Superficial Thrombophlebitis (ED) Additional Instructions: Continue taking tylenol at home. You can try warm packs as well. Compression stockings may help during the day. Call your primary care doctor on Friday to schedule an appointment within 48 hours to follow up on your visiit today. Return to the emergency department for new or wrosening symptoms including fever, numbness/weakness, swelling in your leg, or if you have any other concerns. Referrals: Brittany Richard NP [Primary Care Provider] - Medical Decision Making 67yo M with T2DM, HLD, hx PE now on warfarin, presenting for left calf pain for two to three weeks. Slightly tachycardiac after walking into department, VS otherwise reassuring, HR 80's on my assessment. Physical exam with bilateral LE varicosities and palpable tender thrombophelbitis to posterior left calm. No LE swelling to suggest DVT and patient is on warfarin; would not peruse further with dimer or US. Good pulses, exam not suggestive of arterial occlusion, would not get CT imaging. No indication of infection, would not do antibiotics at this time. Will give single dose of toradol here, instructed regarding ways to manage symptoms at home without regular use of NSAIDs given risk for bleeding on warfarin. Advised to followup with PCP this week. Discharged home; discharge instructions including return precautions were reviewed with patient who verbalized understanding. All questions were answered and they are in full agreement with the plan. HPI General Mode of arrival: ambulatory. Date/Time Provider Initiated Documentation: 02/02/23 22:05. Limitations to Documentation: no limitations. Information obtained by: patient. HPI Narrative: 67yo M with T2DM, HLD, hx PE now on warfarin, presenting for left calf pain for two to three weeks. Pain has been worsening, initially well controlled with tylenol now more severe. Worse with walking. Does not recall any injury to the area but thinks he has been exerting himself more than usual lately. No leg swelling, numbness, tingling, warmth, redness, itching, or weakness. He is otherwise in his usual state of health with no fevers, chills, rash, nausea, vomiting, chest pain, shortness of breath, or other concerns. Related Data Home Medications Medication Instructions Recorded Confirmed multivitamin (Daily Multi-Vitamin 1 tab PO DAILY PRN 08/06/18 02/02/23 tablet) allopurinol 100 mg tablet 100 mg PO DAILY #90 tabs 05/08/22 02/02/23 atorvastatin 20 mg tablet 20 mg PO DAILY #90 tabs 05/08/22 02/02/23 lisinopril 2.5 mg tablet 2.5 mg PO DAILY #90 tabs 05/08/22 02/02/23 warfarin 5 mg tablet 5 mg PO DAILY #90 tabs 05/08/22 02/02/23 tamsulosin 0.4 mg capsule (Flomax) 0.8 mg (2 x 0.4 mg) PO DAILY #180 08/01/22 02/02/23 caps flash glucose scanning reader #1 ea 09/21/22 11/26/22 (FreeStyle Nata 2 [place]) metformin 500 mg tablet,extended 500 mg PO BID PRN 09/21/22 02/02/23 release 24hr (osmotic) blood sugar diagnostic (Blood #100 ea 09/24/22 11/26/22 Glucose Test strips) 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 meter #1 ea 09/24/22 11/26/22 lancets #100 ea 09/24/22 11/26/22 flash glucose sensor (FreeStyle #2 ea 11/20/22 11/26/22 Anta 2 Sensor kit) Previous Rx's Medication Instructions Recorded allopurinol 100 mg tablet 100 mg PO DAILY #90 tabs 05/08/22 atorvastatin 20 mg tablet 20 mg PO DAILY #90 tabs 05/08/22 lisinopril 2.5 mg tablet 2.5 mg PO DAILY #90 tabs 05/08/22 warfarin 5 mg tablet 5 mg PO DAILY #90 tabs 05/08/22 tamsulosin 0.4 mg capsule (Flomax) 0.8 mg (2 x 0.4 mg) PO DAILY #180 08/01/22 caps flash glucose scanning reader #1 ea 09/21/22 (FreeStyle Nata 2 [place]) blood sugar diagnostic (Blood #100 ea 09/24/22 Glucose Test strips) 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 meter #1 ea 09/24/22 lancets #100 ea 09/24/22 flash glucose sensor (FreeStyle #2 ea 11/20/22 Nata 2 Sensor kit) Allergies Allergy/AdvReac Type Severity Reaction Status Date / Time No Known Drug Allergies Allergy Verified 02/02/23 22:17 General Stated Complaint: Orthopedic JOHNATHAN: 4 Review of Systems Narrative: see HPI PFSH All Active Problems (Updated 02/02/23 @ 22:35 by Najma Garcia MD) Thrombophlebitis (Acute) Type 2 diabetes mellitus without complication, without long-term current use of insulin (Chronic 05/21/17) 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 (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 03/02/15) Idiopathic PE ~2013; no RX drug coverage, so uses Warfarin Hyperlipidemia (Chronic) Tubular adenoma of colon (Chronic 03/30/15) Family history of colon cancer (Chronic 08/09/15) Obesity (Chronic) Goiter (Chronic) [facility] [place]o Gout (Chronic) Medical History Acute prostatitis Bacteremia due to Gram-negative bacteria Edentulous Elevated blood pressure reading without diagnosis of hypertension h/o elevated psa Nephrolithiasis Post herpetic neuralgia Pulmonary embolism (10/16/13) Seasonal allergies Sepsis Thyroid enlargement (07/12/13) Urinary retention UTI (urinary tract infection), bacterial Surgical History thyroid biopsy (11/15/13) at [facility] [place] Family History Mother Essential hypertension Stroke Father Spinal stenosis Other Personal history of malignant neoplasm Social History Smoking/Tobacco Use Status: Never Smoking risk assessment performed?: Yes Alcohol Intake: former Year quit: 2008 Drug use: Never Substance use type: does not use Adopted: No Caregiver/Support person: No Foster care: No Household members: family Housing: house Number of Children: 0 Communication Needs: Corrective Lenses current occupation: used to work in [employer] Pets and animals: Yes What type of physical activity do you participate in: none and other Details: shoveling snow Duration: 45-60 minutes/day Seatbelt use: always Drive 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 Head: Normocephalic, atraumatic Neck: Trachea midline, Neck supple. Cardiac: No cyanosis. Resp: No respiratory distress. Speaking in full sentences. Abd: Non-distended. Extremities: No deformities. No peripheral edema, LE symmetric. Bilateral varicose veins. Posterior left calf just below knee with palpable tender thrombophlebitis, no overlying warmth or erythema. 2+ DP pulses Neurologic: GCS 15. Moves all extremities freely against gravity Course Vital Signs Vital signs: Vital Signs Temperature 36.6 C 02/02/23 22:10 Pulse 101 H 02/02/23 22:10 Respiratory Rate 16 02/02/23 22:10 Blood Pressure 131/82 02/02/23 22:10 Pulse Oximetry 96 02/02/23 22:10 Temperature 36.6 C 02/02/23 22:10 Temperature Source Temporal Artery Scan 02/02/23 22:10 Pulse 101 H 02/02/23 22:10 Respiratory Rate 16 02/02/23 22:10 Respiratory Effort Normal, Non-Labored 02/02/23 22:14 Blood Pressure 131/82 02/02/23 22:10 Blood Pressure Position Sitting 02/02/23 22:10 Pulse Oximetry 96 02/02/23 22:10 Oxygen Delivery Method Room Air 02/02/23 22:10 Oxygen Flow Rate 0 02/02/23 22:10 Pain Level 7 02/02/23 22:10
== END 2023-02-02 22:42 | disposition home or self-care (01) ==
PROVIDERS: Emergency Provider Student in an Organized Health Care Education/Training Program; PCP Nurse Practitioner Adult Health
DX: I80.03 Phlebitis and thrombophlebitis of superficial vessels of lower extremities, bilateral (principal); E11.9 Type 2 diabetes mellitus without complications; E78.5 Hyperlipidemia, unspecified
CPT/HCPCS: 96372; 99284; J1885

== ENCOUNTER → 2023-02-03 18:21 | Outpatient (CLI) | payer MEDICARE, SELFPAY ==
--- NOTE | 2023-02-03 10:15 | DI.US_ITS ---
Exam(s) US LOWER EXTREMITY VENOUS LT EXAM: US LOWER EXTREMITY VENOUS LT CLINICAL HISTORY: r/o DVT M79.89 M79.605 PAIN LEFT LEG I83.93 VARICOSE VEINS Z86.711 HX. TECHNIQUE: Lower extremity venous ultrasound performed using grayscale, color-flow, and spectral Do ppler analysis. COMPARISON: No exams were available for comparison FINDINGS: The common femoral, femoral and popliteal veins demonstrate normal compressibility, augmentation, and color Doppler. The posterior tibial veins are patent. No saphenous vein thrombosis or other superfi cial venous thrombosis is seen. No hematoma or Armstrong's cyst is seen. IMPRESSION: Negative lower extremity ultrasound. No evidence of DVT. DATA REPOSITORY:
== END ==
PROVIDERS: PCP Nurse Practitioner Adult Health; Visit Provider Nurse Practitioner Adult Health
DX: I83.93 Asymptomatic varicose veins of bilateral lower extremities (principal); M79.605 Pain in left leg; M79.89 Other specified soft tissue disorders; Z86.711 Personal history of pulmonary embolism
CPT/HCPCS: 93971

== ENCOUNTER 2023-02-06 07:50 | Emergency (ER) | payer MEDICARE, SELFPAY ==
--- NOTE | 2023-02-06 09:00 | DI.RAD_ITS ---
Exam(s) XR WRIST LT COMPLETE EXAM: XR WRIST LT COMPLETE CLINICAL HISTORY: wrist pain. TECHNIQUE: 2D digital imaging was performed of the left wrist. Three images were obtained. PA, obl ique and lateral views were obtained. COMPARISON: CR LEFT WRIST COMPLETE from 06/27/2009 FINDINGS: BONES: No acute fracture is present. No bony destructive lesion is seen. JOINTS: The carpal bones are normally aligned. SOFT TISSUE: Chondrocalcinosis seen in the region of the TFCC. IMPRESSION: 1. Chondrocalcinosis of the TFCC. 2. No acute fracture or dislocation. DATA REPOSITORY: RADIATION DOSE DELIVERED:
[2023-02-06 10:10] VITALS: BP 130/78; PULSE 85; RESP 16; TEMP 36.6; O2SAT 97
[2023-02-06 10:52] LABS: Uric Acid 5.2 mg/dL (3.5-7.2)
[2023-02-06 10:53] LABS: Anion Gap 9.7 mmol/L (3-11); BUN 16 mg/dL (7-18); CO2 26.3 mmol/L (21.0-32.0); Calcium 9.3 mg/dL (8.5-10.1); Chloride 101 mmol/L (98-107); Estimated GFR 81.47 (mL/min/1.73m2); Glucose 160 mg/dL (74-106); Potassium 3.8 mmol/L (3.5-5.1); Sodium 137 mmol/L (136-145)
[2023-02-06 10:55] LABS: Absolute Basophil Count 0.04 10^3/uL (0.0-0.2); Absolute Eosinophil Count 0.18 10^3/uL (0.0-0.7); Absolute Lymphocyte Count 1.23 10^3/uL (1.2-3.4); Basophils % 0.5; Eosinophils % 2.1; HCT 40.4 % (40.0-50.0); Immature Grans % 0.5; Lymphocytes % 14.3; MCH 31.7 pg (27.0-33.0); MCHC 34.7 % (32.0-36.0); MCV 92 fL (80-95); Monocytes % 15.2; Neutrophils % 67.4; Platelet Count 265 10^3/uL (130-400); RBC 4.41 10^6/uL (4.36-5.78); RDW 12.9 % (11.8-14.1); RDW-SD 43.7 fL; WBC 8.58 10^3/uL (4.4-10.8)
[2023-02-06 10:56] LABS: Abs Immature Grans 0.04 10^3/uL (0.0-0.06); Absolute Neutrophil Count 5.79 10^3/uL (1.2-6.7)
[2023-02-06 10:57] LABS: INR 1.5 (0.9-1.1); Prothrombin Time 14.2 sec (9.1-11.1)
[2023-02-06 11:00] LABS: ESR 33 mm/hr (0-20)
--- NOTE | 2023-02-06 11:45 | ED.GENADUL_ITS ---
Discharge Plan Disposition Patient Disposition: Home Condition: Stable Discharge Details Clinical Impression: Acute wrist pain Primary Care Provider: Brittany Richard ED Provider: Veronika Borrego Home Meds and New Rx's Prescriptions: New colchicine 0.6 mg capsule 0.6 mg PO DAILY Qty: 3 0RF Rx Instructions: take 2 capsules, followed by 1 capsule 1 hour later Continued tamsulosin [Flomax] 0.4 mg capsule 0.8 mg PO DAILY Qty: 180 3RF (DME) 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 meter Misc See Rx Instructions .MEDSUPPLY Qty: 1 0RF Rx Instructions: As directed to check blood glucose daily. No insulin. Dispense covered brand. (DME) Blood Glucose Test Strip See Rx Instructions .MEDSUPPLY Qty: 100 3RF Rx Instructions: As directed to check blood glucose daily. No insulin. Dispense covered brand. (DME) lancets Misc See Rx Instructions .MEDSUPPLY Qty: 100 3RF Rx Instructions: As directed to check blood glucose daily. No insulin. Dispense covered brand. warfarin 5 mg tablet 5 mg PO DAILY Qty: 90 3RF Protocol: Dose Management Condition: Friday Dose/Route: 2.5 mg Instruction: 0.5 x 5 mg tablets Condition: Friday Dose/Route: 2.5 mg Instruction: 0.5 x 5 mg tablets Condition: Friday Dose/Route: 5 mg Instruction: 1 x 5 mg tablet Condition: Friday Dose/Route: 2.5 mg Instruction: 0.5 x 5 mg tablets Condition: Dose/Route: 5 mg Instruction: 1 x 5 mg tablet Condition: Friday Dose/Route: 5 mg Instruction: 1 x 5 mg tablet Condition: Friday Dose/Route: 5 mg Instruction: 1 x 5 mg tablet Protocol Text: Adjustment Start Date: Friday02/03/23 INR Value: 2.9 INR Date: 02/03/23 Recheck Date: 03/03/23 lisinopril 2.5 mg tablet 2.5 mg PO DAILY Qty: 90 3RF multivitamin [Daily Multi-Vitamin] tablet 1 tab PO DAILY PRN (DME) FreeStyle Nata 2 Sensor Kit See Rx Instructions .Route Qty: 2 11RF Rx Instructions: As directed metformin 500 mg tablet extended release 24hr 500 mg PO BID PRN (DME) FreeStyle Nata 2 [place] Misc See Rx Instructions .Route Qty: 1 0RF Rx Instructions: As directed Held atorvastatin 20 mg tablet 20 mg PO DAILY Qty: 90 3RF Hold Instructions: Resume on 02/11/23. allopurinol 100 mg tablet 100 mg PO DAILY Qty: 90 3RF Hold Instructions: Resume on 02/11/23. Discharge Instructions Additional Instructions: take colchicine 2 tabs, followed by 1 tab one hour later use wrist splint tylenol as needed for pain temporarily hold your allopurinol and atorvastatin return earlier with redness, swelling, worsening pain, fever, or should you have new or worsening complaints Referrals: Brittany Richard SENIOR SUSTAINABILITY ADVISOR [Primary Care Provider] - Discharge Data Discharge Date/Time-TO BE ENTERED AT DEPARTURE: 02/06/23 10:12 Medical Decision Making 67-year-old male presenting with left wrist pain, exam consistent with likely history of gout, x-ray does not show evidence of acute abnormality per radiology interpretation my review of rest wrist Labs are largely unremarkable aside from a CRP of 4, creatinine within normal limits, uric acid 5.2. No leukocytosis, will place in wrist splint for comfort and initiate colchicine, patient will temporarily hold atorvastatin and allopurinol for few days No evidence of septic arthritis, although patient is not having symptomatic improvement with colchicine he is encouraged to return to the emergency department for reassessment Return precautions reviewed and patient expressed understanding HPI General Date/Time Provider Initiated Documentation: 02/06/23 09:46 . HPI Narrative: This 67-year-old gentleman with history of diabetes, anticoagulation on Coumadin for history of pulmonary embolism, hypertension, hyperlipidemia, gout presents with left wrist pain consistent with a prior episode of gout. States the pain is similar but was many years ago. Was recently on Keflex but denies any additional change in medications. States that he is noncompliant with his allopurinol and takes it approximately 4-5 times a week. Denies any chest pain or shortness of breath. Denies fever or chills. States the wrist pain and swel ling started approximately 3 days ago. States it is exacerbated with movement. States blood sugars have been under control per patient. Related Data Home Medications Medication Instructions Recorded Confirmed multivitamin (Daily Multi-Vitamin 1 tab PO DAILY PRN 08/06/18 02/03/23 tablet) allopurinol 100 mg tablet 100 mg PO DAILY #90 tabs 05/08/22 02/03/23 atorvastatin 20 mg tablet 20 mg PO DAILY #90 tabs 05/08/22 02/03/23 lisinopril 2.5 mg tablet 2.5 mg PO DAILY #90 tabs 05/08/22 02/03/23 warfarin 5 mg tablet 5 mg PO DAILY #90 tabs 05/08/22 02/03/23 tamsulosin 0.4 mg capsule (Flomax) 0.8 mg (2 x 0.4 mg) PO DAILY #180 08/01/22 02/03/23 caps flash glucose scanning reader #1 ea 09/21/22 02/03/23 (FreeStyle Nata 2 [place]) metformin 500 mg tablet,extended 500 mg PO BID PRN 09/21/22 02/03/23 release 24hr (osmotic) blood sugar diagnostic (Blood #100 ea 09/24/22 02/03/23 Glucose Test strips) 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 meter #1 ea 09/24/22 02/03/23 lancets #100 ea 09/24/22 02/03/23 flash glucose sensor (FreeStyle #2 ea 11/20/22 02/03/23 Nata 2 Sensor kit) colchicine 0.6 mg capsule 0.6 mg PO DAILY #3 caps 02/06/23 Previous Rx's Medication Instructions Recorded allopurinol 100 mg tablet 100 mg PO DAILY #90 tabs 05/08/22 atorvastatin 20 mg tablet 20 mg PO DAILY #90 tabs 05/08/22 lisinopril 2.5 mg tablet 2.5 mg PO DAILY #90 tabs 05/08/22 warfarin 5 mg tablet 5 mg PO DAILY #90 tabs 05/08/22 tamsulosin 0.4 mg capsule (Flomax) 0.8 mg (2 x 0.4 mg) PO DAILY #180 08/01/22 caps flash glucose scanning reader #1 ea 09/21/22 (FreeStyle [place] 2 [place]) blood sugar diagnostic (Blood #100 ea 09/24/22 Glucose Test strips) 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 meter #1 ea 09/24/22 lancets #100 ea 09/24/22 flash glucose sensor (FreeStyle #2 ea 11/20/22 Nata 2 Sensor kit) colchicine 0.6 mg capsule 0.6 mg PO DAILY #3 caps 02/06/23 Allergies Allergy/AdvReac Type Severity Reaction Status Date / Time No Known Drug Allergies Allergy Verified 02/03/23 09:56 General Stated Complaint: Orthopedic JOHNATHAN: 3 PFSH All Active Problems (Updated 02/06/23 @ 09:59 by PB Sweeney) Acute wrist pain (Acute) Thrombophlebitis (Acute) Type 2 diabetes mellitus without complication, without long-term current use of insulin (Chronic 05/21/17) History of pulmonary embolism (Chronic) detention current use of anticoagulant therapy (Chronic 03/02/15) Idiopathic PE ~2013; no RX drug coverage, so uses Warfarin Hyperlipidemia (Chronic) Tubular adenoma of colon (Chronic 03/30/15) Family history of colon cancer (Chronic 08/09/15) Obesity (Chronic) Goiter (Chronic) [facility] [place] Endo Gout (Chronic) Medical History Elevated blood pressure reading without diagnosis of hypertension UTI (urinary tract infection), bacterial Nephrolithiasis Urinary retention Bacteremia due to Gram-negative bacteria Sepsis Acute prostatitis Thyroid enlargement (07/12/13) Edentulous h/o elevated psa Pulmonary embolism (10/16/13) Post herpetic neuralgia Seasonal allergies Surgical History thyroid biopsy (11/15/13) at [facility] [place] Family History Mother Essential hypertension Stroke Father Spinal stenosis Other Personal history of malignant neoplasm Social History Smoking/Tobacco Use Status: Never Smoking risk assessment performed?: Yes Alcohol Intake: former Year quit: 2008 Drug use: Never Substance use type: does not use Adopted: No Caregiver/Support person: No Foster care: No Household members: family Housing: house Number of Children: 0 Communication Needs: Corrective Lenses current occupation: used to work in [employer] Pets and animals: Yes What type of physical activity do you participate in: none and other Details: shoveling snow Duration: 45-60 minutes/day Seatbelt use: always Drive intox or ride w/intox drive away driver: No Water heater temp set <120 deg: No Working smoke detector in home: No Fire extinguisher in home: Yes Carbon monox detector in home: No Do you feel safe at home: Yes Do you feel safe in your relationship?: Yes Victim of physical abuse: No Victim of emotional abuse: No Victim of sexual abuse: No Course Vital Signs Vital signs: Vital Signs Temperature 36.6 C 02/06/23 10:10 Pulse 85 02/06/23 10:10 Respiratory Rate 16 02/06/23 10:10 Blood Pressure 130/78 02/06/23 10:10 Pulse Oximetry 97 02/06/23 10:10 Temperature 36.6 C 02/06/23 10:10 Pulse 85 02/06/23 10:10 Respiratory Rate 16 02/06/23 10:10 Respiratory Effort Normal 02/06/23 09:06 Blood Pressure 130/78 02/06/23 10:10 Pulse Oximetry 97 02/06/23 10:10 Pain Level 4 02/06/23 09:04 Lab/Test Results Lab/Test Results: Laboratory Tests Range/Units 02/06/23 08:31 WBC (4.4-10.8) 10^3/uL 8.58 RBC (4.36-5.78) 10^6/uL 4.41 Hgb (13.5-17.5) g/dL 14.0 Hct (40.0-50.0) % 40.4 MCV (80-95) fL 92 MCH (27.0-33.0) pg 31.7 MCHC (32.0-36.0) % 34.7 RDW (11.8-14.1) % 12.9 Plt Count (130-400) 10^3/uL 265 MPV (8.0-11.0) fL 9.0 Immature Gran % 0.5 Neutrophils % 67.4 Lymphocytes % 14.3 Monocytes % 15.2 Eosinophils % 2.1 Basophils % 0.5 Nucleated RBC % (0.0-0.3) % 0.0 Absolute Neutrophils (1.2-6.7) 10^3/uL 5.79 Absolute Lymphocytes (1.2-3.4) 10^3/uL 1.23 Absolute Monocytes (0.1-0.8) 10^3/uL 1.30 H Absolute Eosinophils (0.0-0.7) 10^3/uL 0.18 Absolute Basophils (0.0-0.2) 10^3/uL 0.04 ESR (0-20) mm/hr 33 H PT (9.1-11.1) sec 14.2 H INR (0.9-1.1) 1.5 H Sodium (136-145) mmol/L 137 Potassium (3.5-5.1) mmol/L 3.8 Chloride (98-107) mmol/L 101 Carbon Dioxide (21.0-32.0) mmol/L 26.3 Anion Gap (3-11) mmol/L 9.7 BUN (7-18) mg/dL 16 Creatinine (0.70-1.30) mg/dL 1.0 Est GFR (CKD-EPI 2020) (mL/min/1.73m2) 81.47 Glucose (74-106) mg/dL 160 H Uric Acid (3.5-7.2) mg/dL 5.2 Calcium (8.5-10.1) mg/dL 9.3 C-Reactive Protein (0.0-0.3) mg/dL 4.70 H
== END 2023-02-06 10:12 | disposition home or self-care (01) ==
PROVIDERS: Emergency Provider Physician Assistant; PCP Nurse Practitioner Adult Health
DX: M25.532 Pain in left wrist (principal); M11.232 Other chondrocalcinosis, left wrist; E11.9 Type 2 diabetes mellitus without complications; I10 Essential (primary) hypertension; E78.5 Hyperlipidemia, unspecified; Z86.711 Personal history of pulmonary embolism; Z79.84 Long term (current) use of oral hypoglycemic drugs; Z79.01 Long term (current) use of anticoagulants
CPT/HCPCS: 29125; 80048; 85652; 99283; 73110; 84550; 85025; 85610; 86140

== ENCOUNTER 2023-02-13 00:58 | Emergency (ER) | payer MEDICARE, SELFPAY | END 2023-02-13 03:37 | disposition left against medical advice (07) | LOC: ER 03:40 | PROVIDERS: PCP Nurse Practitioner Adult Health | DX: Z53.21 Procedure and treatment not carried out due to patient leaving prior to being seen by health care provider (principal) ==

== ENCOUNTER → 2023-02-14 01:13 | Outpatient (CLI) | payer MEDICARE, SELFPAY ==
--- NOTE | 2023-02-14 07:00 | DI.RAD_ITS ---
Exam(s) XR KNEE LT 3V AP,LAT,MASON EXAM: XR KNEE LT 3V AP,LAT,MASON CLINICAL HISTORY: Persistent lt knee pain,m25.562. TECHNIQUE: 2D digital imaging was performed of the left knee. Three images were obtained. AP, late ral and PA tunnel views were obtained. COMPARISON: No priors for comparison. FINDINGS: BONES: No acute fracture is present. No bony destructive lesion is seen. JOINTS: The knee is normally aligned. There is a small joint effusion. There is chondrocalcinosis in the femoral tibial joint. SOFT TISSUE: Normal. IMPRESSION: 1. Chondrocalcinosis which can be seen with CPPD arthropathy. 2. Small joint effusion. DATA REPOSITORY: RADIATION DOSE DELIVERED:
== END ==
PROVIDERS: PCP Nurse Practitioner Adult Health; Visit Provider Nurse Practitioner Adult Health
DX: M11.262 Other chondrocalcinosis, left knee (principal)
CPT/HCPCS: 73562

== ENCOUNTER → 2023-03-27 13:06 | Outpatient (BNVA) | payer MEDICARE, SELFPAY | PROVIDERS: PCP Nurse Practitioner Adult Health; Referring Provider Nurse Practitioner Adult Health; Visit Provider Physical Therapy Assistant | DX: Z12.11 Encounter for screening for malignant neoplasm of colon (principal) ==

== ENCOUNTER → 2023-05-14 03:13 | Outpatient (CLI) | payer MEDICARE, SELFPAY ==
--- NOTE | 2023-05-14 07:30 | DI.US_ITS ---
Exam(s) US THYROID EXAM: US THYROID CLINICAL HISTORY: evaluate goiter,E04.9. TECHNIQUE: Ultrasound thyroid performed using standard protocol. COMPARISON: US THYROID ULTRASOUND from 07/07/2013 CT CHEST FOR PULMONARY EMBOLUS from 10/15/[address] CHEST PE ABD PELVIS W from 06/04/2018 FINDINGS: The thyroid was difficult to evaluate due to large size. The patient had chest CTs in 2013 and 2018. The thyroid appears unchanged in size. There is a large substernal nodules extending inferiorly to the level of the aortic arch measuring 5.5 cm which is also unchanged in size. This is not well abril ged on this ultrasound examination. ISTHMUS: 5 millimeter RIGHT LOBE: Size: 7.6 x 3.9 x 4.6 cm Echogenicity: Heterogeneous Vascularity: Normal. Nodules: Diffusely heterogeneous and nodular. Difficult to measure discrete nodules. LEFT LOBE: Size: 9.9 x 4.1 x 4.4 cm Echogenicity: Heterogeneous. Vascularity: Normal. Nodules: Heterogeneous and diffusely nodular. Discrete nodules can not be measured. OTHER FINDINGS: None. IMPRESSION: Enlarged thyroid which is diffusely multinodular. There is a large nodule seen on prior CTs extending substernally which is not visualized on this exam ination due to its deep location. DATA REPOSITORY:
== END ==
PROVIDERS: PCP Nurse Practitioner Adult Health; Visit Provider Nurse Practitioner Adult Health
DX: E04.2 Nontoxic multinodular goiter (principal)
CPT/HCPCS: 76536

== ENCOUNTER → 2023-06-18 11:17 | Outpatient (BNVA) | payer MEDICARE, SELFPAY | PROVIDERS: PCP Nurse Practitioner Adult Health; Referring Provider Nurse Practitioner Adult Health; Visit Provider Nurse Practitioner Gerontology | DX: R33.8 Other retention of urine (principal); R35.0 Frequency of micturition | CPT/HCPCS: 51798; 81003; 99213 ==

== ENCOUNTER 2023-08-08 02:41 | Outpatient (CLI) | payer MEDICARE, SELFPAY ==
[2023-08-08 13:56] LABS: TSH (W/Ref FT4) 0.72 uIU/mL (0.36-3.74)
== END 2023-08-08 02:42 | disposition home or self-care (01) ==
LOC: LBO 02:42
PROVIDERS: PCP Nurse Practitioner Adult Health; Visit Provider Nurse Practitioner Adult Health
DX: E04.9 Nontoxic goiter, unspecified (principal)
CPT/HCPCS: 36415; 84443

== ENCOUNTER 2023-09-17 19:17 | Emergency (ER) | payer MEDICARE, SELFPAY ==
[2023-09-17 19:30] VITALS: BP 148/60; PULSE 89; RESP 16; TEMP 36.7; O2SAT 98
[2023-09-17 20:53] VITALS: RESP 18
--- NOTE | 2023-09-17 21:00 | DI.RAD_ITS ---
Exam(s) XR CHEST 2V PA LATERAL EXAM: XR CHEST 2V PA LATERAL CLINICAL HISTORY: cough TECHNIQUE: 2D digital imaging was performed of the chest. Images were obtained. PA and lateral v iews were obtained. COMPARISON: CT CT CHEST PE ABD PELVIS W from 06/04/2018 CR XR PORTABLE CHEST AP from 06/05/2018 FINDINGS: MEDIASTINUM: There is again seen rightward deviation of the trachea secondary to the patient's known enlarged thyroid goiter. HEART: Normal. PULMONARY VASCULATURE: Normal. LUNGS: No focal consolidating infiltrates. The lungs appear somewhat hyperinflated with flattened di aphragms suggesting underlying COPD. PLEURAL SPACE: No pleural effusion or pneumothorax. BONE:Within normal limits for the patient's age. OTHER FINDINGS:Nipple shadows are present. IMPRESSION: No acute pulmonary findings. DATA REPOSITORY: RADIATION DOSE DELIVERED:
[2023-09-17 21:29] LABS: Influenza A PCR Negative (Negative); Influenza B PCR Negative (Negative); RSV PCR Negative (Negative)
[2023-09-17 21:32] LABS: COVID-19 PCR Positive (Negative)
[2023-09-17 21:33] LABS: Source NASOPHARYNX
--- NOTE | 2023-09-17 22:06 | DI.VRAD_ITS ---
PROCEDURE INFORMATION: Exam: XR Chest Exam date and time: 09/17/2023 9:18 PM Age: 68 years old Clinical indication: Cough TECHNIQUE: Imaging protocol: Radiologic exam of the chest. Views: 2 views. COMPARISON: SC XR PORTABLE CHEST AP 06/05/2018 3:13 PM FINDINGS: Lungs: Mild hyperexpansion and hyperlucency with mild diaphragmatic flattening consistent with COPD. Pulmonary vasculature grossly normal. No gross pulmonary infiltrates or edema pattern. Pleural spaces: No pleural effusion. No pneumothorax. Heart/Mediastinum: Heart size normal. Bones/joints: No acute osseous abnormalities are identified. Mild-moderate thoracic spondylosis. Soft tissues: Nipple shadows project symmetrically over the bilateral lung bases. Organs: There is chronic 14 mm rightward tracheal shift related to the longstanding 5.5 cm mass projecting from the inferior margin of the left thyroid lobe, with narrowing of the adjacent tracheal segment to 8 mm which is grossly unchanged from 06/04/2018. IMPRESSION: 1. No acute cardiopulmonary process is evident. 2. COPD. No gross pulmonary infiltrates or edema. 3. 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 Dictated and Authenticated by: Wilman Andrade MD. Ordering:JoanieCHANDRA Frankel MD
[2023-09-17 22:07] VITALS: BP 127/84; PULSE 87; RESP 18; O2SAT 95
--- NOTE | 2023-09-17 22:55 | ED.GENADUL_ITS ---
Discharge Plan Disposition Patient Disposition: Home Discharge Details Clinical Impression: COVID Primary Care Provider: Brittany Richard ED Provider: Nitin Santiago Home Meds and New Rx's Prescriptions: No Action (DME) 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 meter Misc See Rx Instructions .MEDSUPPLY Qty: 1 0RF Rx Instructions: As directed to check blood glucose daily. No insulin. Dispense covered brand. (DME) Blood Glucose Test Strip See Rx Instructions .MEDSUPPLY Qty: 100 3RF Rx Instructions: As directed to check blood glucose daily. No insulin. Dispense covered brand. (DME) lancets Misc See Rx Instructions .MEDSUPPLY Qty: 100 3RF Rx Instructions: As directed to check blood glucose daily. No insulin. Dispense covered brand. tamsulosin [Flomax] 0.4 mg capsule 0.8 mg PO DAILY Qty: 180 3RF triamcinolone acetonide 0.1 % cream 1 applic topical BID PRN (Reason: left leg dermatitis) Qty: 15 0RF Rx Instructions: Apply thin layer, ideally mixed with lotion, to affected skin on left leg for up to 14 consecutive days colchicine 0.6 mg capsule 0.6 mg PO BID PRN (Reason: Until resolves) Qty: 20 0RF allopurinol 100 mg tablet 100 mg PO DAILY Qty: 90 3RF lisinopril 2.5 mg tablet 2.5 mg PO DAILY Qty: 90 3RF multivitamin [Daily Multi-Vitamin] tablet 1 tab PO DAILY PRN (DME) FreeStyle Nata 2 Sensor Kit See Rx Instructions .Route Qty: 2 11RF Rx Instructions: As directed warfarin 5 mg tablet 5 mg PO DAILY Qty: 90 3RF Protocol: Dose Management Condition: Friday Dose/Route: 2.5 mg Instruction: 0.5 x 5 mg tablets Condition: Friday Dose/Route: 2.5 mg Instruction: 0.5 x 5 mg tablets Condition: Friday Dose/Route: 5 mg Instruction: 1 x 5 mg tablet Condition: Friday Dose/Route: 2.5 mg Instruction: 0.5 x 5 mg tablets Condition: Dose/Route: 5 mg Instruction: 1 x 5 mg tablet Condition: Friday Dose/Route: 5 mg Instruction: 1 x 5 mg tablet Condition: Friday Dose/Route: 5 mg Instruction: 1 x 5 mg tablet Protocol Text: Adjustment Start Date: Friday09/09/23 INR Value: 2.0 INR Date: 09/09/23 Recheck Date: 10/07/23 atorvastatin 20 mg tablet See Rx Instructions .ROUTE .COMPLEX Qty: 90 3RF Dose Instruction: TAKE ONE TABLET BY MOUTH EVERY DAY Rx Instructions: TAKE ONE TABLET BY MOUTH EVERY DAY metformin 500 mg tablet extended release 24hr 500 mg PO BID PRN (DME) FreeStyle Nata 2 [place] Misc See Rx Instructions .Route Qty: 1 0RF Rx Instructions: As directed Discharge Instructions Instructions: COVID-19 ED Additional Instructions: * Your test today was positive for COVID * Please start the medication provided to you and take 5 days * Please isolate during the next 5 days per CDC guidelines * Return to the emergency department if you have significant shortness of breath, cough or feel like your symptoms are worsening * You can also take [id number] Flonase, Claritin, Mucinex to help with your symptoms Discharge Data Discharge Date/Time-TO BE ENTERED AT DEPARTURE: 09/17/23 22:07 HPI General Date/Time Provider Initiated Documentation: 09/17/23 19:48 . Limitations to Documentation: no limitations . Information obtained by: patient . HPI Narrative: 68-year-old gentleman with past medical history of diabetes, gout, pulmonary embolism on long-term anticoagulant presents for evaluation of URI symptoms. He states that he feels like he has a jib-et-gge-mill cold. His symptoms started yesterday. He states that he generally has some seasonal allergies and had been helping his neighbors bale hay so he felt like this made it worse. He reports a very runny nose, mild sore throat. Some mild cough, that is not productive. No fever or chills. States that he is eating and drinking normally. Denies any chest pain. Related Data Home Medications ?Medication ?Instructions ?Recorded ?Confirmed multivitamin (Daily Multi-Vitamin 1 tab PO DAILY PRN 08/06/18 09/17/23 tablet) flash glucose scanning reader #1 ea 09/21/22 09/17/23 (FreeStyle Nata 2 [place]) metformin 500 mg tablet,extended 500 mg PO BID PRN 09/21/22 09/17/23 release 24hr (osmotic) blood sugar diagnostic (Blood #100 ea 09/24/22 09/17/23 Glucose Test strips) 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 meter #1 ea 09/24/22 09/17/23 lancets #100 ea 09/24/22 09/17/23 flash glucose sensor (FreeStyle #2 ea 11/20/22 09/17/23 Nata 2 Sensor kit) colchicine 0.6 mg capsule 0.6 mg PO BID PRN Until resolves 02/07/23 09/17/23 #20 caps warfarin 5 mg tablet 5 mg PO DAILY #90 tabs 05/28/23 09/17/23 triamcinolone acetonide 0.1 % 1 applic topical BID PRN left leg 06/04/23 09/17/23 topical cream dermatitis #15 grams tamsulosin 0.4 mg capsule (Flomax) 0.8 mg (2 x 0.4 mg) PO DAILY #180 06/18/23 09/17/23 caps atorvastatin 20 mg tablet See Rx Instructions .Route 06/20/23 09/17/23 .COMPLEX #90 tabs allopurinol 100 mg tablet 100 mg PO DAILY #90 tabs 08/11/23 09/17/23 lisinopril 2.5 mg tablet 2.5 mg PO DAILY #90 tabs 08/11/23 09/17/23 Previous Rx's ?Medication ?Instructions ?Recorded flash glucose scanning reader #1 ea 09/21/22 (FreeStyle Nata 2 [place]) blood sugar diagnostic (Blood #100 ea 09/24/22 Glucose Test strips) 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 meter #1 ea 09/24/22 lancets #100 ea 09/24/22 flash glucose sensor (FreeStyle #2 ea 11/20/22 Nata 2 Sensor kit) colchicine 0.6 mg capsule 0.6 mg PO BID PRN Until resolves 02/07/23 #20 caps warfarin 5 mg tablet 5 mg PO DAILY #90 tabs 05/28/23 triamcinolone acetonide 0.1 % 1 applic topical BID PRN left leg 06/04/23 topical cream dermatitis #15 grams tamsulosin 0.4 mg capsule (Flomax) 0.8 mg (2 x 0.4 mg) PO DAILY #180 06/18/23 caps atorvastatin 20 mg tablet See Rx Instructions .Route 06/20/23 .COMPLEX #90 tabs allopurinol 100 mg tablet 100 mg PO DAILY #90 tabs 08/11/23 lisinopril 2.5 mg tablet 2.5 mg PO DAILY #90 tabs 08/11/23 Allergies Allergy/AdvReac Type Severity Reaction Status Date / Time No Known Allergies Allergy Verified 09/17/23 20:55 General Stated Complaint: GenMedical JOHNATHAN: 4 Exam Narrative Exam Narrative: Review of Systems: All systems reviewed & are unremarkable except as noted in HPI and below Well-developed, no acute distress Afebrile NCAT PERRL, normal conjunctiva Moderate clear rhinorrhea Posterior oropharynx without any significant erythema, tonsillar enlargement or exudate No cervical adenopathy RRR no murmur Unlabored respiratory effort clear bilaterally Nondistended abdomen Extremities w/o deformity, no cyanosis, no edema No rashes or lesions. no focal neurologic deficits Appropriate mood and affect Course Vital Signs Vital signs: Vital Signs Temperature 36.7 C 09/17/23 19:30 Pulse 89 09/17/23 19:30 Respiratory Rate 16 09/17/23 19:30 Blood Pressure 148/60 H 09/17/23 19:30 Pulse Oximetry 98 09/17/23 19:30 Temperature 36.7 C 09/17/23 19:30 Temperature Source Tympanic 09/17/23 19:30 Pulse 87 09/17/23 22:07 Respiratory Rate 18 09/17/23 22:07 Respiratory Effort Normal, Non-Labored 09/17/23 20:53 Respiratory Depth Normal 09/17/23 20:53 Respiratory Pattern Normal 09/17/23 20:53 Blood Pressure 127/84 09/17/23 22:07 Blood Pressure Position Sitting 09/17/23 19:30 Pulse Oximetry 95 09/17/23 22:07 Oxygen Delivery Method Room Air 09/17/23 19:30 Oxygen Flow Rate 0 09/17/23 19:30 Pain Level 0 09/17/23 19:30 Lab/Test Results Lab/Test Results: Laboratory Tests Range/Units 09/17/23 20:49 COVID-19 Source NASOPHARYNX SARS-CoV-2 (PCR) (Negative) Positive A Influenza Type A (PCR) (Negative) Negative Influenza Type B (PCR) (Negative) Negative RSV (PCR) (Negative) Negative Medical Decision Making Emergent evaluation of URI symptoms. Initial differential includes viral URI, pneumonia, COVID illness. The patient is well-appearing, afebrile, nonhypoxic. He is has no signs of respiratory distress. His pulmonary exam is unremarkable. Given his age a chest x-ray was obtained to evaluate for consolidative process in this chest x-ray was reviewed and independently interpreted by me. There is no sign of abnormality on the chest x-ray. Viral testing was obtained and his COVID test is positive. There is no indication for hospitalization at this time. Patient has multiple contraindications for taking Paxlovid, so he was prescribed malnupiravir. Strict return precautions advised and the patient is recommended follow-up with his PCP. Medical Records Medical records reviewed: Yes I reviewed the patient's medical records. Quality:SDOH Health Related Social Needs: No Data to Display PFSH All Active Problems COVID (Acute) Pseudogout of left wrist (Acute ~01/2023) Pseudogout of left knee (Acute ~01/2023) Type 2 diabetes mellitus without complication, without long-term current use of insulin (Chronic 05/21/17) History of pulmonary embolism (Chronic) senior care current use of anticoagulant therapy (Chronic 03/02/15) Idiopathic unprovoked PE ~2013; no RX drug coverage, so uses Warfarin Hyperlipidemia (Chronic) Tubular adenoma of colon (Chronic 03/30/15) Family history of colon cancer (Chronic 08/09/15) F--dx'ed 70s Obesity (Chronic) [place]2013[place] [facility] [place]) Medical History Elevated blood pressure reading without diagnosis of hypertension UTI (urinary tract infection), bacterial Nephrolithiasis Urinary retention Bacteremia due to Gram-negative bacteria Sepsis Acute prostatitis Thyroid enlargement (07/12/13) Edentulous h/o elevated psa Pulmonary embolism (10/16/13) Post herpetic neuralgia Seasonal allergies Surgical [place]13[place] [facility] [place] History Mother Essential hypertension Stroke Father Spinal stenosis Other Personal history of malignant neoplasm Social History Smoking/Tobacco Use Status: Never Smoking risk assessment performed?: Yes Alcohol Intake: former Year quit: 2009 Drug use: Never Substance use type: does not use Adopted: No Caregiver/Support person: No Foster care: No Household members: family Housing: house Number of Children: 0 Communication Needs: Corrective Lenses current occupation: used to work in [employer] Pets and animals: Yes What type of physical activity do you participate in: none and other Details: shoveling snow Duration: 45-60 minutes/day Seatbelt use: always Drive intox or ride w/intox 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
== END 2023-09-17 22:07 | disposition home or self-care (01) ==
PROVIDERS: Emergency Provider Emergency Medicine; PCP Nurse Practitioner Adult Health
DX: U07.1 COVID-19 (principal); R05.1 Acute cough; Z11.52 Encounter for screening for COVID-19
CPT/HCPCS: 87637; 99283; 71046

== ENCOUNTER 2023-10-08 17:14 | Outpatient (CLI) | payer MEDICARE, SELFPAY ==
[2023-10-08 16:09] LABS: Prothrombin Time 39.3 sec (9.1-11.1)
[2023-10-08 16:38] LABS: INR 4.5 (0.9-1.1)
[2023-10-08 16:44] LABS: CREATININE 1.1 mg/dL (0.70-1.30); Estimated GFR 72.22 (mL/min/1.73m2)
== END 2023-10-08 17:15 | disposition home or self-care (01) ==
LOC: LBO 17:14
PROVIDERS: PCP Nurse Practitioner Adult Health; Visit Provider Student in an Organized Health Care Education/Training Program
DX: Z79.01 Long term (current) use of anticoagulants (principal); E04.9 Nontoxic goiter, unspecified
CPT/HCPCS: 36415; 82565; 85610

== ENCOUNTER 2023-10-10 08:38 | Outpatient (CLI) | payer MEDICARE, SELFPAY ==
[2023-10-10 07:58] LABS: INR 2.8 (0.9-1.1); Prothrombin Time 26.1 sec (9.1-11.1)
== END 2023-10-10 08:39 | disposition home or self-care (01) ==
LOC: LBO 08:38
PROVIDERS: PCP Nurse Practitioner Adult Health; Visit Provider Nurse Practitioner Adult Health
DX: Z79.01 Long term (current) use of anticoagulants (principal)
CPT/HCPCS: 36415; 85610

== ENCOUNTER 2023-10-24 13:58 | Outpatient (CLI) | payer MEDICARE, SELFPAY ==
[2023-10-24 11:38] LABS: TSH (W/Ref FT4) 0.46 uIU/mL (0.36-3.74)
== END 2023-10-24 13:59 | disposition home or self-care (01) ==
LOC: LBO 13:58
PROVIDERS: PCP Nurse Practitioner Adult Health; Visit Provider Student in an Organized Health Care Education/Training Program
DX: E04.9 Nontoxic goiter, unspecified (principal)
CPT/HCPCS: 36415; 84443

== ENCOUNTER 2023-11-09 19:09 | Emergency (ER) | payer MEDICARE, SELFPAY ==
[2023-11-09 19:11] VITALS: BP 175/84; PULSE 76; RESP 14; TEMP 36.6; O2SAT 95
--- NOTE | 2023-11-09 19:15 | DI.CT_ITS ---
Exam(s) CT CERVICAL SPINE WO EXAM: CT CERVICAL SPINE WO CLINICAL HISTORY: heavy object fell on back of his neck, pain. TECHNIQUE: Imaging Protocol: Axial computed tomography images with coronal and sagittal reformatted images were created and reviewed COMPARISON: No exams were available for comparison FINDINGS: CERVICAL SPINE: There is no evidence of acute fracture. No significant prevertebral soft tissue swelling. No significant listhesis. Chronic disc space narrowing noted at multiple levels. This appears developmental at C2-3 and acquir ed at the other levels. There is also multilevel anterior osteophytes. Mild degenerative anterolist hesis of C3 upon C4 noted related to facet arthropathy at this level. Facet arthropathy evident but no significant facet joint malalignment. No significant osseous lesions evident. IMPRESSION: Chronic degenerative disc disease and degenerative changes as above. No evidence of cervical spine fracture, malalignment, nor acute compromise of the cervical spinal can al. RADIATION DOSE DELIVERED: 351.18mGy.cm Total DLP DATA REPOSITORY: All CT scans at this facility are submitted to the National Radiology Data Registry (NRDR) Dose Index Registry (DIR) with the [employer] (ACR). RADIATION OPTIMIZATION: All CT scans at this facility use at least one of these dose optimization te chniques: automated exposure control; mA and/or kV adjustment per patient size (includes targeted exa ms where dose is matched to clinical indication); or iterative reconstruction.
--- NOTE | 2023-11-09 19:22 | W.ED.GENAD ---
Discharge Plan Disposition Patient Disposition: Home Condition: Stable Discharge Details Clinical Impression: Contusion of neck Primary Care Provider: Brittany Richard ED Provider: Vimal Patel Home Meds and New Rx's Prescriptions: Continued (DME) 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 meter Misc See Rx Instructions .MEDSUPPLY Qty: 1 0RF Rx Instructions: As directed to check blood glucose daily. No insulin. Dispense covered brand. (DME) Blood Glucose Test Strip See Rx Instructions .MEDSUPPLY Qty: 100 3RF Rx Instructions: As directed to check blood glucose daily. No insulin. Dispense covered brand. (DME) lancets Misc See Rx Instructions .MEDSUPPLY Qty: 100 3RF Rx Instructions: As directed to check blood glucose daily. No insulin. Dispense covered brand. tamsulosin [Flomax] 0.4 mg capsule 0.8 mg PO DAILY Qty: 180 3RF colchicine 0.6 mg capsule 0.6 mg PO BID PRN (Reason: Until resolves) Qty: 20 0RF allopurinol 100 mg tablet 100 mg PO DAILY Qty: 90 3RF lisinopril 2.5 mg tablet 2.5 mg PO DAILY Qty: 90 3RF (DME) FreeStyle Nata 2 Sensor Kit See Rx Instructions .Route Qty: 2 11RF Rx Instructions: As directed warfarin 5 mg tablet 5 mg PO DAILY Qty: 90 3RF Protocol: Dose Management Condition: Friday Dose/Route: 2.5 mg Instruction: 0.5 x 5 mg tablets Condition: Friday Dose/Route: 2.5 mg Instruction: 0.5 x 5 mg tablets Condition: Friday Dose/Route: 5 mg Instruction: 1 x 5 mg tablet Condition: Friday Dose/Route: 2.5 mg Instruction: 0.5 x 5 mg tablets Condition: Dose/Route: 5 mg Instruction: 1 x 5 mg tablet Condition: Friday Dose/Route: 5 mg Instruction: 1 x 5 mg tablet Condition: Friday Dose/Route: 5 mg Instruction: 1 x 5 mg tablet Protocol Text: Adjustment Start Date: Friday11/05/23 INR Value: 2.1 INR Date: 11/05/23 Recheck Date: 11/19/23 atorvastatin 20 mg tablet See Rx Instructions .ROUTE .COMPLEX Qty: 90 3RF Dose Instruction: TAKE ONE TABLET BY MOUTH EVERY DAY Rx Instructions: TAKE ONE TABLET BY MOUTH EVERY DAY metformin 500 mg tablet extended release 24hr 500 mg PO BID PRN (DME) FreeStyle Nata 2 [place] Misc See Rx Instructions .Route Qty: 1 0RF Rx Instructions: As directed Discharge Instructions Additional Instructions: Your CAT scan did not show any concerning findings If you are not improving within a week follow-up with your primary care provider If you feel more ill or have new symptoms such as persistent vomiting return to the emergency department for reevaluation HPI General Mode of arrival: ambulatory. Date/Time Provider Initiated Documentation: 11/09/23 19:11. Limitations to Documentation: no limitations. Information obtained by: patient. History of Present Illness 68 year old M presents to the emergency department with the chief complaint of neck pain, described as moderate, Quality is described as aching, Patient reports no radiation. Patient started experiencing this day(s) (1) and it has been constant. No relieving factors improve symptom(s), No exacerbating factors reported . Patient notes no other symptoms.. Related Data Home Medications ?Medication ?Instructions ?Recorded ?Confirmed flash glucose scanning reader #1 ea 09/21/22 11/09/23 (FreeStyle Nata 2 [place]) metformin 500 mg tablet,extended 500 mg PO BID PRN 09/21/22 11/09/23 release 24hr (osmotic) blood sugar diagnostic (Blood #100 ea 09/24/22 11/09/23 Glucose Test strips) 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 meter #1 ea 09/24/22 11/09/23 lancets #100 ea 09/24/22 11/09/23 flash glucose sensor (FreeStyle #2 ea 11/20/22 11/09/23 Nata 2 Sensor kit) colchicine 0.6 mg capsule 0.6 mg PO BID PRN Until resolves 02/07/23 11/09/23 #20 caps warfarin 5 mg tablet 5 mg PO DAILY #90 tabs 05/28/23 11/09/23 tamsulosin 0.4 mg capsule (Flomax) 0.8 mg (2 x 0.4 mg) PO DAILY #180 06/18/23 11/09/23 caps atorvastatin 20 mg tablet See Rx Instructions .Route 06/20/23 11/09/23 .COMPLEX #90 tabs allopurinol 100 mg tablet 100 mg PO DAILY #90 tabs 08/11/23 11/09/23 lisinopril 2.5 mg tablet 2.5 mg PO DAILY #90 tabs 08/11/23 11/09/23 Previous Rx's ?Medication ?Instructions ?Recorded flash glucose scanning reader #1 ea 09/21/22 (FreeStyle Nata 2 [place]) blood sugar diagnostic (Blood #100 ea 09/24/22 Glucose Test strips) 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 meter #1 ea 09/24/22 lancets #100 ea 09/24/22 flash glucose sensor (FreeStyle #2 ea 11/20/22 Nata 2 Sensor kit) colchicine 0.6 mg capsule 0.6 mg PO BID PRN Until resolves 02/07/23 #20 caps warfarin 5 mg tablet 5 mg PO DAILY #90 tabs 05/28/23 tamsulosin 0.4 mg capsule (Flomax) 0.8 mg (2 x 0.4 mg) PO DAILY #180 06/18/23 caps atorvastatin 20 mg tablet See Rx Instructions .Route 06/20/23 .COMPLEX #90 tabs allopurinol 100 mg tablet 100 mg PO DAILY #90 tabs 08/11/23 lisinopril 2.5 mg tablet 2.5 mg PO DAILY #90 tabs 08/11/23 Allergies Allergy/AdvReac Type Severity Reaction Status Date / Time No Known Allergies Allergy Verified 11/09/23 19:14 General Stated Complaint: Trauma JOHNATHAN: 3 Review of Systems All systems reviewed & are unremarkable except as noted in HPI and below Constitutional Constitutional: Denies chills, Denies fever(s) and Denies weakness ENT Ears, Nose, Mouth, and Throat: Reports neck pain Cardiovascular Cardiovascular: Denies chest pain and Denies dyspnea Respiratory Respiratory: Denies cough and Denies dyspnea Gastrointestinal Gastrointestinal: Denies abdominal pain, Denies nausea and Denies vomiting Musculoskeletal Musculoskeletal: Denies joint swelling and Reports neck pain Neurologic Neurologic: Denies weakness Exam Const General: no acute distress Orientation: alert HENMT Head: normal to inspection Ears: external ears normal General nose exam: external nose normal Mouth: moist mucous membranes Eyes General: appearance normal, both eyes and all related structures Neck Neck: normal visual inspection and tender Resp Effort & Inspection: normal respiratory effort and able to speak in complete sentences Cardio Rate: regular rate Skin General skin exam: no rashes or lesions noted Neuro General: patient alert and patient oriented x3 Extrem General: normal to inspection Psych Mental Status: mental status grossly normal Course Vital Signs Vital signs: Vital Signs Temperature 36.6 C 11/09/23 19:11 Pulse 76 11/09/23 19:11 Respiratory Rate 14 11/09/23 19:11 Blood Pressure 175/84 H 11/09/23 19:11 Pulse Oximetry 95 11/09/23 19:11 Temperature 36.6 C 11/09/23 19:11 Pulse 76 11/09/23 19:11 Respiratory Rate 14 11/09/23 19:11 Respiratory Effort Normal 11/09/23 19:16 Blood Pressure 175/84 H 11/09/23 19:11 Pulse Oximetry 95 11/09/23 19:11 Oxygen Delivery Method Room Air 11/09/23 19:11 Oxygen Flow Rate 0 11/09/23 19:11 Pain Level 6 11/09/23 19:11 Medical Decision Making 68-year-old male comes in with neck pain. He says he feels antiques and was working when a heavy object fell off a shelf above his head and landed on the back of his neck. He did not fall or sustain other injuries. This happened yesterday and the pain is still present so he came here for an evaluation. He denies any headaches, chest pain, abdominal pain, back pain. He localizes the pain to the left lateral mid neck and has reproducible tenderness in this area. He has no midline step-offs or deformities. Suspect that he has a cervical strain versus contusion but will obtain x-rays to evaluate for possible fracture. CT negative, pt stable and still has no midline C-spine tenderness. Suspect cervical strain wrist contusion, he is stable for discharge he will follow-up with his primary care provider, return precautions given Differential Diagnosis Differential Diagnosis: muscle spasm, fracture, sprain Quality:SDOH Health Related Social Needs: No Data to Display PFSH All Active Problems (Updated 11/09/23 @ 20:21 by Vimal Patel MD) Contusion of neck (Acute) Anticoagulation goal of INR 2 to 3 (Acute) COVID (Acute) Pseudogout of left wrist (Acute ~01/2023) Pseudogout of left knee (Acute ~01/2023) Type 2 diabetes mellitus without complication, without long-term current use of insulin (Chronic 05/21/17) 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 (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 03/02/15) Idiopathic unprovoked PE ~2013; no RX drug coverage, so uses Warfarin Hyperlipidemia (Chronic) Tubular adenoma of colon (Chronic 03/30/15) Family history of colon cancer (Chronic 08/09/15) F--dx'ed 70s Obesity (Chronic) Goiter (Chronic ~2013) [facility] [place] Endo Gout (Chronic) Medical History Elevated blood pressure reading without diagnosis of hypertension UTI (urinary tract infection), bacterial Nephrolithiasis Urinary retention Bacteremia due to Gram-negative bacteria Sepsis Acute prostatitis Thyroid enlargement (07/12/13) Edentulous h/o elevated psa Pulmonary embolism (10/16/13) Post herpetic neuralgia Seasonal allergies Surgical History thyroid biopsy (11/15/13) at [facility] [place] Family History Mother Essential hypertension Stroke Father Spinal stenosis Other Personal history of malignant neoplasm Social History Smoking/Tobacco Use Status: Never Smoking risk assessment performed?: Yes Alcohol Intake: former Year quit: 2008 Drug use: Never Substance use type: does not use Adopted: No Caregiver/Support person: No Foster care: No Household members: family Housing: house Number of Children: 0 Communication Needs: Corrective Lenses current occupation: used to work in [employer] Pets and animals: Yes What type of physical activity do you participate in: none and other Details: shoveling snow Duration: 45-60 minutes/day Seatbelt use: always Drive intox or ride w/intox log truck driver: No Water heater temp set <120 deg: No Working smoke detector in home: No Fire extinguisher in home: Yes Carbon monox detector in home: No Do you feel safe at home: Yes Do you feel safe in your relationship?: Yes Victim of physical abuse: No Victim of emotional abuse: No Victim of sexual abuse: No
--- NOTE | 2023-11-09 20:46 | DI.VRAD_ITS ---
PROCEDURE INFORMATION: Exam: CT Cervical Spine Without Contrast Exam date and time: 11/09/2023 7:37 PM Age: 68 years old Clinical indication: Neck pain; Patient HX: Heavy object fell on back of neck, pain TECHNIQUE: Imaging protocol: Computed tomography of the cervical spine without contrast. Radiation optimization: All CT scans at this facility use at least one of these dose optimization techniques: automated exposure control; mA and/or kV adjustment per patient size (includes targeted exams where dose is matched to clinical indication); or iterative reconstruction. COMPARISON: US THYROID 05/14/2023 11:50 AM FINDINGS: Bones: No acute fracture. Normal alignment. No significant disc bulge or herniation. No severe spinal canal stenosis. No significant neural foraminal narrowing. Paranasal sinuses: Right maxillary sinus retention cyst. Lungs: Lung apices are normal. Thyroid: Thyroid heterogeneity with calcifications, probable multinodular goiter. Soft tissues: Unremarkable. IMPRESSION: No evidence for acute posttraumatic abnormality. Dictated and Authenticated by: Lexi Day MD. Ordering:ALBINA Celis MD
[2023-11-09] MEDS: Lidocaine 5% Patch 1 PATCH TP (20:59)
[2023-11-09 21:06] VITALS: BP 175/84; PULSE 76; RESP 14; TEMP 36.6; O2SAT 95
== END 2023-11-09 21:02 | disposition home or self-care (01) ==
PROVIDERS: Emergency Provider Emergency Medicine; PCP Nurse Practitioner Adult Health
DX: S10.93XA Contusion of unspecified part of neck, initial encounter (principal); W22.8XXA Striking against or struck by other objects, initial encounter
CPT/HCPCS: 99284; 72125; 99283

== ENCOUNTER → 2023-12-17 10:42 | Outpatient (BNVA) | payer MEDICARE, SELFPAY | PROVIDERS: PCP Nurse Practitioner Adult Health; Referring Provider Nurse Practitioner Adult Health; Visit Provider Nurse Practitioner Gerontology | DX: R33.8 Other retention of urine (principal); N39.0 Urinary tract infection, site not specified; R35.0 Frequency of micturition | CPT/HCPCS: 51798; 99213 ==

== ENCOUNTER 2024-02-02 02:11 | Outpatient (CLI) | payer MEDICARE, SELFPAY ==
[2024-02-02 07:31] LABS: COMMENT (LAB VIEW ONLY) 96.73 mg/dL
[2024-02-02 07:34] LABS: Anion Gap 5.5 mmol/L (3-11); BUN 10 mg/dL (7-18); CO2 30.5 mmol/L (21.0-32.0); CREATININE 0.9 mg/dL (0.70-1.30); Calcium 7.6 mg/dL (8.5-10.1); Calculated LDL 54 mg/dL (<100); Chloride 107 mmol/L (98-107); Cholesterol 112 mg/dL (<200); Estimated GFR 91.88 (mL/min/1.73m2); Glucose 127 mg/dL (74-106); HDL Cholesterol 38 mg/dL (40-60); Potassium 4.4 mmol/L (3.5-5.1); Sodium 143 mmol/L (136-145); Triglyceride 100 mg/dL (<150); Uric Acid 4.8 mg/dL (3.5-7.2)
[2024-02-02 14:26] LABS: Hemoglobin A1C 7.5 % (<5.7)
== END 2024-02-02 02:12 | disposition home or self-care (01) ==
LOC: LBO 02:11
PROVIDERS: Absent Provider Nurse Practitioner Adult Health; PCP Nurse Practitioner Adult Health; Referring Provider Nurse Practitioner Adult Health; Visit Provider Nurse Practitioner Adult Health
DX: E78.2 Mixed hyperlipidemia (principal); E11.9 Type 2 diabetes mellitus without complications; M1A.9XX0 Chronic gout, unspecified, without tophus (tophi); M11.262 Other chondrocalcinosis, left knee; M11.232 Other chondrocalcinosis, left wrist
CPT/HCPCS: 36415; 80048; 80061; 82043; 82570; 83036; 84550

== ENCOUNTER 2024-03-08 11:53 | Outpatient (CLI) | payer MEDICARE, SELFPAY ==
[2024-03-08 18:28] LABS: Parathyroid Hormone,Intact 45.3 pg/mL (19.0-88.0)
== END 2024-03-08 11:54 | disposition home or self-care (01) ==
LOC: LBO 11:54
PROVIDERS: PCP Nurse Practitioner Adult Health; Visit Provider Student in an Organized Health Care Education/Training Program
DX: E89.0 Postprocedural hypothyroidism (principal); Z51.81 Encounter for therapeutic drug level monitoring; Z79.01 Long term (current) use of anticoagulants
CPT/HCPCS: 36415; 82310; 83970; 84443

== ENCOUNTER → 2024-06-30 13:22 | Outpatient (BNVA) | payer MEDICARE, MEDICAID, SELFPAY | PROVIDERS: PCP Nurse Practitioner Adult Health; Referring Provider Nurse Practitioner Adult Health; Visit Provider Nurse Practitioner Gerontology | DX: R33.9 Retention of urine, unspecified (principal); R39.9 Unspecified symptoms and signs involving the genitourinary system | CPT/HCPCS: 51798; 81003; 99213 ==

== ENCOUNTER 2024-10-06 22:58 | Emergency (ER) | payer MEDICARE, MEDICAID, SELFPAY ==
[2024-10-06 23:04] VITALS: BP 171/78; PULSE 81; RESP 16; TEMP 36.4; O2SAT 96
--- NOTE | 2024-10-06 23:22 | W.ED.GENAD ---
Discharge Plan Disposition Patient Disposition: Home Condition: Good Discharge Details Clinical Impression: Low blood sugar reading Primary Care Provider: Brittany Richard ED Provider: Najma Garcia Home Meds and New Rx's Prescriptions: Continued (DME) 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 meter Misc See Rx Instructions .MEDSUPPLY Qty: 1 0RF Rx Instructions: As directed to check blood glucose daily. No insulin. Dispense covered brand. (DME) Blood Glucose Test Strip See Rx Instructions .MEDSUPPLY Qty: 100 3RF Rx Instructions: As directed to check blood glucose daily. No insulin. Dispense covered brand. allopurinol 100 mg tablet 100 mg PO DAILY Qty: 90 3RF lisinopril 2.5 mg tablet 2.5 mg PO DAILY Qty: 90 3RF (DME) FreeStyle Nata 3 [place] Misc See Rx Instructions .Route Qty: 1 0RF Rx Instructions: As directed (DME) FreeStyle Nata 3 Plus Sensor Device See Rx Instructions .Route Qty: 2 11RF Rx Instructions: As directed colchicine 0.6 mg capsule 0.6 mg PO BID PRN (Reason: Until resolves) Qty: 20 0RF tamsulosin [Flomax] 0.4 mg capsule 0.8 mg PO DAILY Qty: 180 3RF (DME) lancets Misc See Rx Instructions .MEDSUPPLY Qty: 100 3RF Rx Instructions: As directed to check blood glucose daily. No insulin. Dispense covered brand. metformin 500 mg tablet extended release 24 hr 500 mg PO DAILY Qty: 90 3RF Rx Instructions: Daily with largest meal warfarin 5 mg tablet 5 mg PO DAILY Qty: 90 3RF Protocol: Dose Management Condition: Friday Dose/Route: 2.5 mg Instruction: 0.5 x 5 mg tablets Condition: Friday Dose/Route: 5 mg Instruction: 1 x 5 mg tablet Condition: Friday Dose/Route: 5 mg Instruction: 1 x 5 mg tablet Condition: Friday Dose/Route: 2.5 mg Instruction: 0.5 x 5 mg tablets Condition: Dose/Route: 5 mg Instruction: 1 x 5 mg tablet Condition: Friday Dose/Route: 5 mg Instruction: 1 x 5 mg tablet Condition: Friday Dose/Route: 5 mg Instruction: 1 x 5 mg tablet Protocol Text: Adjustment Start Date: 09/30/24 INR Value: 1.6 INR Date: 09/30/24 Recheck Date: 10/28/24 atorvastatin 20 mg tablet See Rx Instructions .ROUTE .COMPLEX Qty: 90 3RF Dose Instruction: TAKE ONE TABLET BY MOUTH EVERY DAY Rx Instructions: TAKE ONE TABLET BY MOUTH EVERY DAY levothyroxine 150 mcg tablet 150 mcg PO DAILY calcium citrate-vitamin D3 315 mg-5 mcg (200 unit) tablet 2 tab PO TID No Action (DME) FreeStyle Nata 2 Sensor Kit MISCELLANEOUS Patient Comments: USE DIRECTED Discharge Instructions Additional Instructions: Call your primary care doctor in the morning to ask about getting a new continuous glucose monitor. In the meantime, check your blood sugar with the finger-prick machine three times a day or if you are feeling like your sugar is low. Return to the emergency department for new or worsening symptoms. HPI General Mode of arrival: ambulatory. Date/Time Provider Initiated Documentation: 10/06/24 22:59. Limitations to Documentation: no limitations. Information obtained by: patient. HPI Narrative: 69yo M with hx T2DM on metformin presenting for low blood sugar readings on CGM. Has been <75 for much of the day. Has been eating well, had some candy and reading increased to 130 but then dropped again. Otherwise feels totally normal. Has not 'felt low'. Otherwise in his usual state of health with no fevers, chills, rash, nausea, vomiting, abdominal pain, shortness of breath, or other concerns. Related Data Home Medications ?Medication ?Instructions ?Recorded ?Confirmed blood sugar diagnostic (Blood #100 ea 09/24/22 10/06/24 Glucose Test strips) 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 meter #1 ea 09/24/22 10/06/24 colchicine 0.6 mg capsule 0.6 mg PO BID PRN Until resolves 02/07/23 10/06/24 #20 caps calcium 315 mg (as 2 tab PO TID 01/20/24 10/06/24 citrate)-vitamin D3 5 mcg (200 unit) tablet levothyroxine 150 mcg tablet 150 mcg PO DAILY 01/20/24 10/06/24 atorvastatin 20 mg tablet See Rx Instructions .Route 03/15/24 10/06/24 .COMPLEX #90 tabs warfarin 5 mg tablet 5 mg PO DAILY #90 tabs 03/15/24 10/06/24 lancets #100 ea 05/10/24 10/06/24 metformin 500 mg tablet,extended 500 mg PO DAILY #90 tabs 05/10/24 10/06/24 release 24 hr tamsulosin 0.4 mg capsule (Flomax) 0.8 mg (2 x 0.4 mg) PO DAILY #180 05/10/24 10/06/24 caps allopurinol 100 mg tablet 100 mg PO DAILY #90 tabs 07/21/24 10/06/24 lisinopril 2.5 mg tablet 2.5 mg PO DAILY #90 tabs 07/21/24 10/06/24 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 sensor (FreeStyle #2 ea 07/23/24 10/06/24 Nata 3 Plus Sensor device) 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,manager interface,cont #1 ea 07/23/24 10/06/24 (FreeStyle Nata 3 [place]) flash glucose sensor (FreeStyle 10/06/24 10/06/24 Nata 2 Sensor kit) Previous Rx's ?Medication ?Instructions ?Recorded blood sugar diagnostic (Blood #100 ea 09/24/22 Glucose Test strips) 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 meter #1 ea 09/24/22 colchicine 0.6 mg capsule 0.6 mg PO BID PRN Until resolves 02/07/23 #20 caps atorvastatin 20 mg tablet See Rx Instructions .Route 03/15/24 .COMPLEX #90 tabs warfarin 5 mg tablet 5 mg PO DAILY #90 tabs 03/15/24 lancets #100 ea 05/10/24 metformin 500 mg tablet,extended 500 mg PO DAILY #90 tabs 05/10/24 release 24 hr tamsulosin 0.4 mg capsule (Flomax) 0.8 mg (2 x 0.4 mg) PO DAILY #180 05/10/24 caps allopurinol 100 mg tablet 100 mg PO DAILY #90 tabs 07/21/24 lisinopril 2.5 mg tablet 2.5 mg PO DAILY #90 tabs 07/21/24 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 sensor (FreeStyle #2 ea 07/23/24 Nata 3 Plus Sensor device) 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,manager interface,cont #1 ea 07/23/24 (FreeStyle Nata 3 [place]) Allergies Allergy/AdvReac Type Severity Reaction Status Date / Time No Known Allergies Allergy Verified 09/30/24 10:11 General Stated Complaint: Diabetes JOHNATHAN: 4 Review of Systems Narrative: see HPI Exam Narrative Exam Narrative: General: Alert, well appearing, well nourished, in no acute distress. Head: Normocephalic, atraumatic Neck: Trachea midline, ?Neck supple. Cardiac: ?No cyanosis. Resp: No respiratory distress. Speaking in full sentences. Abd: ?Nnon-distended Extremities: ?No deformities.? Neurologic: GCS 15. ? Moves all extremities freely against gravity Course Vital Signs Vital signs: Vital Signs Temperature 36.4 C L 10/06/24 23:04 Pulse 81 10/06/24 23:04 Respiratory Rate 16 10/06/24 23:04 Blood Pressure 171/78 H 10/06/24 23:04 Pulse Oximetry 96 10/06/24 23:04 Temperature 36.4 C L 10/06/24 23:04 Temperature Source Tympanic 10/06/24 23:04 Pulse 81 10/06/24 23:04 Respiratory Rate 16 10/06/24 23:04 Blood Pressure 171/78 H 10/06/24 23:04 Blood Pressure Position Sitting 10/06/24 23:04 Pulse Oximetry 96 10/06/24 23:04 Oxygen Delivery Method Room Air 10/06/24 23:04 Oxygen Flow Rate 0 10/06/24 23:04 Pain Level 0 10/06/24 23:04 Medical Decision Making 69yo M with hx T2DM on metformin presenting for low blood sugar readings on CGM. Has been <75 for much of the day. Feels totally normal, has not 'felt low', no other concerns. Fingerstick on arrival 201; CGM reading low 100's when this taken per patient. Suspect device is malfunctioning. He is not on insulin and he does take metformin but only on days when his reading is higher than 200. I do not believe he has been having significant episodes of hypoglycemia today. He does have a fingerstick blood glucose machine as well but does not know how to use it- he brought it with him. He was educated regarding how to perform capillary blood glucose testing using the machine he provided. Advised him to call his PCP in the morning regarding replacing CGM. Discharged home; discharge instructions and return precuations were reviewed with patient who verbalized understanding. All questions were answered and he is in full agreement with the plan. Lab Data Lab results reviewed: Yes I reviewed the patient's lab results. 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) Idiopathic unprovoked PE ~2013; no RX drug coverage, so uses Warfarin Hyperlipidemia (Chronic) Tubular adenoma of colon (Chronic 03/30/15) Family history of colon cancer (Chronic 08/09/15) F--dx'ed 70s Obesity (Chronic) Gout (Chronic) Medical History (Updated 10/06/24 @ 23:28 by Najma Garcia MD) Goiter (~2013) [facility] [place]; s/p thyroidectomy COVID Elevated blood pressure reading without diagnosis of hypertension UTI (urinary tract infection), bacterial Nephrolithiasis Urinary retention Bacteremia due to Gram-negative bacteria Sepsis Acute prostatitis Thyroid enlargement (07/12/13) Edentulous h/o elevated psa Pulmonary embolism (10/16/13) Post herpetic neuralgia Seasonal allergies Surgical History S/P thyroidectomy (~12/2023) Done 01/19/2024 at [facility] [place] by Dr. Judy Brady. With Parathyroid Autotransplantation thyroid biopsy (11/15/13) at [facility] [place] Family History Mother Essential hypertension Stroke Father Spinal stenosis Other Personal history of malignant neoplasm Social History Smoking/Tobacco Use Status: Never Smoking risk assessment performed?: Yes Alcohol Intake: former Year quit: 2008 Drug use: Never Substance use type: does not use Adopted: No Caregiver/Support person: No Foster care: No Household members: family Housing: house Number of Children: 0 Communication Needs: Corrective Lenses current occupation: used to work in [employer] Pets and animals: Yes What type of physical activity do you participate in: none and other Details: shoveling snow Duration: 45-60 minutes/day Seatbelt use: always Drive intox or ride w/intox emt driver: No Water heater temp set <120 deg: No Working smoke detector in home: No Fire extinguisher in home: Yes Carbon monox detector in home: No Do you feel safe at home: Yes Do you feel safe in your relationship?: Yes Victim of physical abuse: No Victim of emotional abuse: No Victim of sexual abuse: No
== END 2024-10-07 00:48 | disposition home or self-care (01) ==
PROVIDERS: Emergency Provider Student in an Organized Health Care Education/Training Program; PCP Nurse Practitioner Adult Health
DX: E11.649 Type 2 diabetes mellitus with hypoglycemia without coma (principal)
CPT/HCPCS: 99283; 99282; 36416; 82962

== ENCOUNTER 2024-12-25 13:05 | Emergency (ER) | payer MEDICARE, MEDICAID, SELFPAY ==
[2024-12-25 13:08] VITALS: BP 152/79; PULSE 66; RESP 20; TEMP 36.8; O2SAT 98
--- NOTE | 2024-12-25 14:32 | W.ED.GENAD ---
Discharge Plan Disposition Patient Disposition: Home Condition: Stable Discharge Details Clinical Impression: Petechial rash, Chronic venous insufficiency Primary Care Provider: Brittany Richard ED Provider: Sherry Dubose Home Meds and New Rx's Prescriptions: New clindamycin HCl [Cleocin HCl] 150 mg capsule 450 mg PO TID 7 Days Qty: 63 0RF Probiotic 3 billion cell capsule 3,000 mmu cells PO DAILY Qty: 14 0RF Rx Instructions: administer with a meal No Action (DME) 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 meter Misc See Rx Instructions .MEDSUPPLY Qty: 1 0RF Rx Instructions: As directed to check blood glucose daily. No insulin. Dispense covered brand. (DME) Blood Glucose Test Strip See Rx Instructions .MEDSUPPLY Qty: 100 3RF Rx Instructions: As directed to check blood glucose daily. No insulin. Dispense covered brand. allopurinol 100 mg tablet 100 mg PO DAILY Qty: 90 3RF lisinopril 2.5 mg tablet 2.5 mg PO DAILY Qty: 90 3RF (DME) FreeStyle Nata 3 Plus Sensor Device See Rx Instructions .Route Qty: 2 11RF Rx Instructions: As directed levothyroxine 150 mcg tablet 150 mcg PO DAILY Qty: 90 3RF colchicine 0.6 mg capsule 0.6 mg PO BID PRN (Reason: Until resolves) Qty: 20 0RF tamsulosin [Flomax] 0.4 mg capsule 0.8 mg PO DAILY Qty: 180 3RF (DME) lancets Misc See Rx Instructions .MEDSUPPLY Qty: 100 3RF Rx Instructions: As directed to check blood glucose daily. No insulin. Dispense covered brand. metformin 500 mg tablet extended release 24 hr 500 mg PO DAILY Qty: 90 3RF Rx Instructions: Daily with largest meal warfarin 5 mg tablet 5 mg PO DAILY Qty: 90 3RF Protocol: Dose Management Condition: Friday Dose/Route: 5 mg Instruction: 1 x 5 mg tablet Condition: Friday Dose/Route: 5 mg Instruction: 1 x 5 mg tablet Condition: Friday Dose/Route: 2.5 mg Instruction: 0.5 x 5 mg tablets Condition: Friday Dose/Route: 5 mg Instruction: 1 x 5 mg tablet Condition: Dose/Route: 2.5 mg Instruction: 0.5 x 5 mg tablets Condition: Friday Dose/Route: 5 mg Instruction: 1 x 5 mg tablet Condition: Friday Dose/Route: 5 mg Instruction: 1 x 5 mg tablet Protocol Text: Adjustment Start Date: Friday12/14/24 INR Value: 2.4 INR Date: 12/14/24 Recheck Date: 01/11/25 atorvastatin 20 mg tablet See Rx Instructions .ROUTE .COMPLEX Qty: 90 3RF Dose Instruction: TAKE ONE TABLET BY MOUTH EVERY DAY Rx Instructions: TAKE ONE TABLET BY MOUTH EVERY DAY calcium citrate-vitamin D3 315 mg-5 mcg (200 unit) tablet 2 tab PO TID (DME) FreeStyle Nata 3 [place] Misc See Rx Instructions .Route Qty: 1 0RF Rx Instructions: As directed (DME) FreeStyle Nata 2 Sensor Kit MISCELLANEOUS Patient Comments: USE DIRECTED Discharge Instructions Instructions: Cellulitis (Skin Infection), Adult ED Additional Instructions: You were seen in the emergency department today for evaluation of a skin change. In our department a full physical examination performed, your rash is what is known as petechiae, which can sometimes represent disruption in the very small blood vessels of your leg. You had laboratory studies that were reassuring, with no evidence of elevated white blood cell count, changes in how your blood coagulate's (your INR was 2.9 today, please continue to follow-up with your INR clinics to discuss warfarin dosing), I would no changes to your kidneys or electrolytes. Your inflammatory markers were low, and there are a number of things that could be causing this change. This could be traumatic from itching, clothing and boots, or other abrasive actions in that area. You could be developing an early skin and soft tissue infection known as cellulitis, and this could be due to your chronic peripheral vascular disease or a condition known as a vasculitis. We will trial a course of antibiotics to cover common skin bacteria, please take all this medication until it is gone, even if you start to feel better. Additionally, we have placed you in compression socks, which you should wear anytime you are up and about to help improve circulation and swelling. Please follow-up with your primary care provider in the next few days to discuss this visit and any symptoms that change, worsen, or persist. Thank you for allowing us to be part of your care. HPI General Mode of arrival: ambulatory. Date/Time Provider Initiated Documentation: 12/25/24 13:12. Limitations to Documentation: no limitations. Information obtained by: patient and old records reviewed. HPI Narrative: This is a 69-year-old male patient with a past medical history significant for type 2 diabetes, peripheral vascular disease, and a history of pulmonary embolism on warfarin, presenting for evaluation of lower extremity skin changes. The patient states that he has had some chronic skin changes in the past but over the past few days has developed a petechial red rash on his anterior left grande. He cannot think of any trauma that he had to the area, it was itchy a few days ago, and he wonders if he scratched it or if it got abraded on his pants or boots. He reports no chest pain, shortness of breath, significant leg swelling, nor numbness or tingling of the extremity. He was counseled by his outpatient providers to start using compression socks, has not yet been able to start this. Related Data Home Medications Medication Instructions Recorded Confirmed blood sugar diagnostic (Blood #100 ea 09/24/22 12/25/24 Glucose Test strips) 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 meter #1 ea 09/24/22 12/25/24 colchicine 0.6 mg capsule 0.6 mg PO BID PRN Until resolves 02/07/23 12/25/24 #20 caps calcium 315 mg (as 2 tab PO TID 01/20/24 12/25/24 citrate)-vitamin D3 5 mcg (200 unit) tablet atorvastatin 20 mg tablet See Rx Instructions .Route 03/15/24 12/25/24 .COMPLEX #90 tabs warfarin 5 mg tablet 5 mg PO DAILY #90 tabs 03/15/24 12/25/24 lancets #100 ea 05/10/24 12/25/24 metformin 500 mg tablet,extended 500 mg PO DAILY #90 tabs 05/10/24 12/25/24 release 24 hr tamsulosin 0.4 mg capsule (Flomax) 0.8 mg (2 x 0.4 mg) PO DAILY #180 05/10/24 12/25/24 caps allopurinol 100 mg tablet 100 mg PO DAILY #90 tabs 07/21/24 12/25/24 lisinopril 2.5 mg tablet 2.5 mg PO DAILY #90 tabs 07/21/24 12/25/24 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 sensor (FreeStyle #2 ea 07/23/24 12/25/24 Nata 3 Plus Sensor device) flash glucose sensor (FreeStyle 10/06/24 12/25/24 Nata 2 Sensor kit) 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,berry picker,cont #1 ea 10/11/24 12/25/24 (FreeStyle Nata 3 [place]) levothyroxine 150 mcg tablet 150 mcg PO DAILY #90 tabs 12/14/24 12/25/24 clindamycin HCl 150 mg capsule 450 mg (3 x 150 mg) PO TID 7 days 12/25/24 (Cleocin HCl) #63 caps lactobacillus combination no.4 3 3,000 mmu cells PO DAILY #14 caps 12/25/24 billion cell capsule (Probiotic) Previous Rx's Medication Instructions Recorded blood sugar diagnostic (Blood #100 ea 09/24/22 Glucose Test strips) 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 meter #1 ea 09/24/22 colchicine 0.6 mg capsule 0.6 mg PO BID PRN Until resolves 02/07/23 #20 caps atorvastatin 20 mg tablet See Rx Instructions .Route 03/15/24 .COMPLEX #90 tabs warfarin 5 mg tablet 5 mg PO DAILY #90 tabs 03/15/24 lancets #100 ea 05/10/24 metformin 500 mg tablet,extended 500 mg PO DAILY #90 tabs 05/10/24 release 24 hr tamsulosin 0.4 mg capsule (Flomax) 0.8 mg (2 x 0.4 mg) PO DAILY #180 05/10/24 caps allopurinol 100 mg tablet 100 mg PO DAILY #90 tabs 07/21/24 lisinopril 2.5 mg tablet 2.5 mg PO DAILY #90 tabs 07/21/24 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 sensor (FreeStyle #2 ea 07/23/24 Nata 3 Plus Sensor device) 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,berry picker,cont #1 ea 10/11/24 (FreeStyle Nata 3 [place]) levothyroxine 150 mcg tablet 150 mcg PO DAILY #90 tabs 12/14/24 clindamycin HCl 150 mg capsule 450 mg (3 x 150 mg) PO TID 7 days 12/25/24 (Cleocin HCl) #63 caps lactobacillus combination no.4 3 3,000 mmu cells PO DAILY #14 caps 12/25/24 billion cell capsule (Probiotic) Allergies Allergy/AdvReac Type Severity Reaction Status Date / Time No Known Allergies Allergy Verified 12/25/24 13:13 General Stated Complaint: Vascular JOHNATHAN: 3 Exam Narrative Exam Narrative: Gen: Awake and alert, in no apparent distress HEENT: Non-icteric sclera Neck: Supple Lungs: No apparent respiratory distress, normal respiratory effort. Lung sounds clear and equal bilaterally CV: Appears well perfused, heart with regular rate and rhythm, strong distal pulses Abdomen: Non-distended MSK: Moves 4 extremities without apparent limitation in ROM. The anterior aspect of the left grande has a well-demarcated petechial rash, with minimal warmth but no induration or significant swelling. No fluctuance is palpated. No unilateral calf swelling or tenderness on the affected side, strong pulses distal to this injury and full sensation and range of motion distal to the injury. Skin: Visualized skin without rashes, cyanosis except as noted above Neuro: Normal Gait, no obvious focal deficits or facial asymmetry. Speaks in full, clear sentences. Psych: Appropriate for situation. Course Vital Signs Vital signs: Vital Signs Temperature 36.8 C 12/25/24 13:08 Pulse 66 12/25/24 13:08 Respiratory Rate 20 12/25/24 13:08 Blood Pressure 152/79 H 12/25/24 13:08 Pulse Oximetry 98 12/25/24 13:08 Temperature 36.8 C 12/25/24 13:08 Pulse 66 12/25/24 13:08 Respiratory Rate 20 12/25/24 13:08 Blood Pressure 152/79 H 12/25/24 13:08 Blood Pressure Position Sitting 12/25/24 13:08 Pulse Oximetry 98 12/25/24 13:08 Oxygen Delivery Method Room Air 12/25/24 13:08 Oxygen Flow Rate 0 12/25/24 13:08 Medical Decision Making This is a 69-year-old male patient presenting for evaluation of skin changes. Differential includes but is not limited to traumatic petechiae, certainly consider coagulopathy, thrombocytopenia, vasculitis's, cellulitis. Considered sequelae of peripheral vascular disease. There is reassuringly no evidence of DVT on physical examination and the patient is appropriately anticoagulated. No evidence of arterial occlusion or critical limb ischemia. The rash is less consistent with allergic reaction, contact dermatitis, etc. I will obtain labs to include CBC, CMP, magnesium, ESR and CRP. Will obtain an INR and PTT. The patient is not requiring of any medications at this time for comfort. I independently interpreted the laboratory studies, which show no significant leukocytosis, anemia, or thrombocytopenia. The chemistry panel is without evidence of electrolyte abnormality, kidney dysfunction, or liver injury. INR is therapeutic at 2.9 and this was shared with the patient He has no elevation in his inflammatory markers. I provided the patient with compression socks, and do feel it is reasonable to trial a course of antibiotics to cover skin and soft tissue infections. As this patient is diabetic, we will go broad-spectrum with clindamycin. I did not feel that it was indicated to initiate the patient on steroids given the lack of elevation in inflammatory markers, but vasculitis should certainly still be considered and worked up in the outpatient environment. I ensure that the patient have the ability to contact his primary care provider to discuss a follow-up visit. At this time, the patient has had a full medical evaluation and is safe for discharge to home. They are hemodynamically stable, ambulatory, and tolerating PO. They are understanding of the follow-up plan and return precautions. They left our facility without incident. 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/02/15) Idiopathic unprovoked PE ~2013; no RX drug coverage, so uses Warfarin Hyperlipidemia (Chronic) Tubular adenoma of colon (Chronic 03/30/15) Family history of colon cancer (Chronic 08/09/15) F--dx'ed 70s Obesity (Chronic) Gout (Chronic) Medical History (Updated 12/25/24 @ 15:53 by Sherry Dubose MD) Goiter (~2013) [facility] COVID Elevated blood pressure reading without diagnosis of hypertension UTI (urinary tract infection), bacterial Nephrolithiasis Urinary retention Bacteremia due to Gram-negative bacteria Sepsis Acute prostatitis Thyroid enlargement (07/12/13) Edentulous h/o elevated psa Pulmonary embolism (10/16/13) Post herpetic neuralgia Seasonal allergies Surgical History S/P thyroidectomy (~12/2023) [place] [facility]. With Parathyroid Autotransplantation thyroid biopsy (11/15/13) [place] [facility] [place] History Mother Essential hypertension Stroke Father Spinal stenosis Other Personal history of malignant neoplasm Social History Smoking/Tobacco Use Status: Never Smoking risk assessment performed?: Yes Alcohol Intake: former Year quit: 2008 Drug use: Never Substance use type: does not use Adopted: No Caregiver/Support person: No Foster care: No Household members: family Housing: house Number of Children: 0 Communication Needs: Corrective Lenses current occupation: used to work in [employer] Pets and animals: Yes What type of physical activity do you participate in: none and other Details: shoveling snow Duration: 45-60 minutes/day Seatbelt use: always Drive intox or ride w/intox escort car driver: No Water heater temp set <120 deg: No Working smoke detector in home: No Fire extinguisher in home: Yes Carbon monox detector in home: No Do you feel safe at home: Yes Do you feel safe in your relationship?: Yes Victim of physical abuse: No Victim of emotional abuse: No Victim of sexual abuse: No PAWSS Have you Been Recently Intoxicated or Drunk Within the Last 30 days?: No Have you Ever Experienced Previous Episodes of Alcohol Withdrawal?: No Have you ever Experienced Withdrawal Seizures?: No Have you ever Experienced Delirium Tremens(DT)s?: No Have you ever undergone Alcohol Rehabilitation Treatment (i.e, inpt ot outpatient treatment programs)?: No Have you ever Experienced Blackouts?: No Have you ever Combined Alcohol with other Downers within the last 90 days?: No Have you ever Combined Alcohol with any other Substance of Abuse during the last 90 days?: No Positive Blood Alcohol level on Presentation? [PCS.BAL]: No Evidence of Increased Autonomic Activity (i.e. HR>120, tremor, sweating, agitation, nausea)?: No Result: 0
[2024-12-25 15:12] LABS: Abs Immature Grans 0.04 10^3/uL (0.0-0.06); HCT 44.3 % (40.0-50.0); HGB 15.2 g/dL (13.5-17.5); Immature Grans % 0.4 %; MCH 31.7 pg (27.0-33.0); MCHC 34.3 % (32.0-36.0); MCV 92 fL (80-95); MPV 8.8 fL (8.0-11.0); Platelet Count 238 10^3/uL (130-400); RBC 4.80 10^6/uL (4.36-5.78); RDW 13.0 % (11.8-14.1); RDW-SD 44.1 fL; WBC 9.59 10^3/uL (4.4-10.8)
[2024-12-25 15:14] LABS: ESR 9 mm/hr (0-20)
[2024-12-25 15:25] LABS: INR 2.9 (0.9-1.1); PTT Activated 33.2 sec (20.6-30.2); Prothrombin Time 27.2 sec (9.1-11.1)
[2024-12-25 15:28] LABS: ALT 34 U/L (16-63); AST 17 U/L (15-37); Albumin 3.8 g/dL (3.4-5.0); Alkaline Phosphatase 112 U/L (46-116); Anion Gap 5.4 mmol/L (3-11); BUN 19 mg/dL (7-18); Bilirubin, Total 0.5 mg/dL (0.2-1.0); CO2 30.6 mmol/L (21.0-32.0); Calcium 8.7 mg/dL (8.5-10.1); Chloride 102 mmol/L (98-107); Glucose 123 mg/dL (74-106); Magnesium 2.1 mg/dL (1.8-2.4); Potassium 4.2 mmol/L (3.5-5.1); Sodium 138 mmol/L (136-145); Total Protein 7.3 g/dL (6.4-8.2)
[2024-12-25 15:37] LABS: C-Reactive Protein < 0.50 mg/dL (<or=0.5)
[2024-12-25] MEDS: Clindamycin 150 MG CAP, 12 CAPS/BTL 450 MG PO (16:17)
== END 2024-12-25 16:31 | disposition home or self-care (01) ==
PROVIDERS: Emergency Provider Emergency Medicine; PCP Nurse Practitioner Adult Health
DX: R23.3 Spontaneous ecchymoses (principal); I87.2 Venous insufficiency (chronic) (peripheral); Z79.01 Long term (current) use of anticoagulants
CPT/HCPCS: 99284; 99283; 36415; 80053; 85652; 83735; 85025; 85610; 85730; 86140

== ENCOUNTER → 2024-12-29 13:20 | Outpatient (BNVA) | payer MEDICARE, MEDICAID, SELFPAY | PROVIDERS: PCP Nurse Practitioner Adult Health; Visit Provider Nurse Practitioner Gerontology | DX: R33.9 Retention of urine, unspecified (principal); R39.9 Unspecified symptoms and signs involving the genitourinary system | CPT/HCPCS: 99213; 51798 ==

== ENCOUNTER 2025-01-29 05:23 | Emergency (ER) | payer MEDICARE, MEDICAID, SELFPAY ==
[2025-01-29] VITALS (7 sets, daily range): BP systolic 114–172; BP diastolic 65–74; PULSE 67–92; RESP 18; TEMP 36.3–37; O2SAT 93–98
[2025-01-29 05:45] LABS: Glucose 500 mg/dL (Negative)
[2025-01-29 05:51] LABS: WBC >50 HPF (0-5)
[2025-01-29 05:52] LABS: C & S Indicated? Yes
[2025-01-29 05:55] LABS: BE (Venous) 3 mmol/L (-2-3); HCO3 (Venous) 27 mmol/L (23-28); O2 Sat (Venous) 85 %; TCO2 (Venous) 24 mmol/L (24-29); pCO2 (Venous) 40 mmHg (41-51); pO2 (Venous) 46 mmHg
[2025-01-29 05:57] LABS: Abs Immature Grans 0.11 10^3/uL (0.0-0.06); HCT 39.5 % (40.0-50.0); HGB 13.4 g/dL (13.5-17.5); Immature Grans % 0.7 %; MCH 30.7 pg (27.0-33.0); MCHC 33.9 % (32.0-36.0); MCV 90 fL (80-95); MPV 9.4 fL (8.0-11.0); Platelet Count 174 10^3/uL (130-400); RBC 4.37 10^6/uL (4.36-5.78); RDW 12.8 % (11.8-14.1); RDW-SD 43.0 fL; WBC 15.93 10^3/uL (4.4-10.8)
--- NOTE | 2025-01-29 06:03 | W.ED.GENAD ---
Discharge Plan Discharge Details Chief Complaint: Urinary Clinical Impression: Acute UTI Primary Care Provider: Brittany Richard ED Provider: Najma Garcia Home Meds and New Rx's Prescriptions: No Action (DME) 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 meter Misc See Rx Instructions .MEDSUPPLY Qty: 1 0RF Rx Instructions: As directed to check blood glucose daily. No insulin. Dispense covered brand. (DME) Blood Glucose Test Strip See Rx Instructions .MEDSUPPLY Qty: 100 3RF Rx Instructions: As directed to check blood glucose daily. No insulin. Dispense covered brand. allopurinol 100 mg tablet 100 mg PO DAILY Qty: 90 3RF lisinopril 2.5 mg tablet 2.5 mg PO DAILY Qty: 90 3RF (DME) FreeStyle Nata 3 Plus Sensor Device See Rx Instructions .Route Qty: 2 11RF Rx Instructions: As directed levothyroxine 150 mcg tablet 150 mcg PO DAILY Qty: 90 3RF colchicine 0.6 mg capsule 0.6 mg PO BID PRN (Reason: Until resolves) Qty: 20 0RF tamsulosin [Flomax] 0.4 mg capsule 0.8 mg PO DAILY Qty: 180 3RF (DME) lancets Misc See Rx Instructions .MEDSUPPLY Qty: 100 3RF Rx Instructions: As directed to check blood glucose daily. No insulin. Dispense covered brand. metformin 500 mg tablet extended release 24 hr 500 mg PO DAILY Qty: 90 3RF Rx Instructions: Daily with largest meal warfarin 5 mg tablet 5 mg PO DAILY Qty: 90 3RF Protocol: Dose Management Condition: Friday Dose/Route: 5 mg Instruction: 1 x 5 mg tablet Condition: Friday Dose/Route: 5 mg Instruction: 1 x 5 mg tablet Condition: Friday Dose/Route: 2.5 mg Instruction: 0.5 x 5 mg tablets Condition: Friday Dose/Route: 5 mg Instruction: 1 x 5 mg tablet Condition: Dose/Route: 2.5 mg Instruction: 0.5 x 5 mg tablets Condition: Friday Dose/Route: 5 mg Instruction: 1 x 5 mg tablet Condition: Friday Dose/Route: 5 mg Instruction: 1 x 5 mg tablet Protocol Text: Adjustment Start Date: 01/06/25 INR Value: 2.4 INR Date: 01/06/25 Recheck Date: 02/03/25 atorvastatin 20 mg tablet See Rx Instructions .ROUTE .COMPLEX Qty: 90 3RF Dose Instruction: TAKE ONE TABLET BY MOUTH EVERY DAY Rx Instructions: TAKE ONE TABLET BY MOUTH EVERY DAY calcium citrate-vitamin D3 315 mg-5 mcg (200 unit) tablet 2 tab PO TID (DME) FreeStyle Nata 3 [place] Misc See Rx Instructions .Route Qty: 1 0RF Rx Instructions: As directed (DME) FreeStyle Nata 2 Sensor Kit MISCELLANEOUS Patient Comments: USE DIRECTED Probiotic 3 billion cell capsule 3,000 mmu cells PO DAILY Qty: 14 0RF Rx Instructions: administer with a meal HPI General Mode of arrival: ambulatory. Date/Time Provider Initiated Documentation: 01/29/25 05:29. Limitations to Documentation: no limitations. Information obtained by: patient and old records reviewed. HPI Narrative: 69yo M with hx DM, BPH, prior PE on warfarin, presenting with concern for UTI. He reports feeling generally unwell starting 5 days ago, feeling cold but no rigors. Some fevers at home at 101F the first two days but none more recently. He has a chronic cough which seems worse over the past several days. No chest pain or trouble breathing. Starting 3 days ago he began to notice frequent urination which has been increasing, as well as occasional loose stool. Not watery, nonbloody. Similar symptoms in the past when he was admitted to the hospital for a UTI; continues to follow with Dr. Duarte. He is otherwise in his usual state of health with no rash, nausea, vomiting, dysuria, hematuria, paresthesias, muscle spasms, or other concerns. [facility] records reviewed and show hospital admission in May of 2018 for urosepsis; at that time blood and urine cultures grew Providencia Rettgeri. Urology clinic notes clarify that this was not prostatitis and he did not have a kdiney stone, though there was initially concern for these during that hospitalization. Related Data Home Medications ?Medication ?Instructions ?Recorded ?Confirmed blood sugar diagnostic (Blood #100 ea 09/24/22 01/29/25 Glucose Test strips) 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 meter #1 ea 09/24/22 01/29/25 colchicine 0.6 mg capsule 0.6 mg PO BID PRN Until resolves 02/07/23 01/29/25 #20 caps calcium 315 mg (as 2 tab PO TID 01/20/24 01/29/25 citrate)-vitamin D3 5 mcg (200 unit) tablet atorvastatin 20 mg tablet See Rx Instructions .Route 03/15/24 01/29/25 .COMPLEX #90 tabs warfarin 5 mg tablet 5 mg PO DAILY #90 tabs 03/15/24 01/29/25 lancets #100 ea 05/10/24 01/29/25 metformin 500 mg tablet,extended 500 mg PO DAILY #90 tabs 05/10/24 01/29/25 release 24 hr tamsulosin 0.4 mg capsule (Flomax) 0.8 mg (2 x 0.4 mg) PO DAILY #180 05/10/24 01/29/25 caps allopurinol 100 mg tablet 100 mg PO DAILY #90 tabs 07/21/24 01/29/25 lisinopril 2.5 mg tablet 2.5 mg PO DAILY #90 tabs 07/21/24 01/29/25 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 sensor (FreeStyle #2 ea 07/23/24 01/29/25 Nata 3 Plus Sensor device) flash glucose sensor (FreeStyle 10/06/24 01/29/25 Nata 2 Sensor kit) 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,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,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 #1 ea 10/11/24 01/29/25 (FreeStyle Nata 3 [place]) levothyroxine 150 mcg tablet 150 mcg PO DAILY #90 tabs 12/14/24 01/29/25 lactobacillus combination no.4 3 3,000 mmu cells PO DAILY #14 caps 12/25/24 01/29/25 billion cell capsule (Probiotic) Previous Rx's ?Medication ?Instructions ?Recorded blood sugar diagnostic (Blood #100 ea 09/24/22 Glucose Test strips) 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 meter #1 ea 09/24/22 colchicine 0.6 mg capsule 0.6 mg PO BID PRN Until resolves 02/07/23 #20 caps atorvastatin 20 mg tablet See Rx Instructions .Route 03/15/24 .COMPLEX #90 tabs warfarin 5 mg tablet 5 mg PO DAILY #90 tabs 03/15/24 lancets #100 ea 05/10/24 metformin 500 mg tablet,extended 500 mg PO DAILY #90 tabs 05/10/24 release 24 hr tamsulosin 0.4 mg capsule (Flomax) 0.8 mg (2 x 0.4 mg) PO DAILY #180 05/10/24 caps allopurinol 100 mg tablet 100 mg PO DAILY #90 tabs 07/21/24 lisinopril 2.5 mg tablet 2.5 mg PO DAILY #90 tabs 07/21/24 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 sensor (FreeStyle #2 ea 07/23/24 Nata 3 Plus Sensor device) 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,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,cont #1 ea 10/11/24 (FreeStyle Nata 3 [place]) levothyroxine 150 mcg tablet 150 mcg PO DAILY #90 tabs 12/14/24 lactobacillus combination no.4 3 3,000 mmu cells PO DAILY #14 caps 12/25/24 billion cell capsule (Probiotic) Allergies Allergy/AdvReac Type Severity Reaction Status Date / Time No Known Allergies Allergy Verified 01/29/25 05:37 General Stated Complaint: Urinary JOHNATHAN: 3 Review of Systems Narrative: see HPI Exam Narrative Exam Narrative: General: Alert, well appearing, well nourished, in no acute distress. Head: Normocephalic, atraumatic Neck: Trachea midline, ?Neck supple. ENT: ?MMM.? No oropharygeal lesions or exudate. Cardiac: ?RRR, no murmurs appreciated Resp: No respiratory distress. CTAB. Abd: ?Soft, non-distended, nontender : ?No suprapubic tenderness. No CVA tenderness. Extremities: ?No deformities.? Venous stasis changes LLE. Neurologic: GCS 15. ? Moves all extremities freely against gravity Course Vital Signs Vital signs: Vital Signs Temperature 36.3 C L 01/29/25 05:26 Pulse 92 H 01/29/25 05:26 Respiratory Rate 18 01/29/25 05:26 Blood Pressure 172/74 H 01/29/25 05:26 Temperature 36.3 C L 01/29/25 05:35 Temperature Source Temporal Artery Scan 01/29/25 05:35 Pulse 92 H 01/29/25 05:35 Respiratory Rate 18 01/29/25 05:35 Blood Pressure 172/74 H 01/29/25 05:35 Blood Pressure Position Sitting 01/29/25 05:35 Oxygen Delivery Method Room Air 01/29/25 05:35 Oxygen Flow Rate 0 01/29/25 05:35 Pain Level 0 01/29/25 05:35 Lab/Test Results Lab/Test Results: 01/29/25 06:01 Blood Blood Culture - Pending 01/29/25 06:01 Blood Blood Culture - Pending 01/29/25 05:40 Urine - Reflex from Ua Urine Culture - Pending Laboratory Tests Range/Units 01/29/25 01/29/25 05:40 05:48 WBC (4.4-10.8) 10^3/uL 15.93 H RBC (4.36-5.78) 10^6/uL 4.37 Hgb (13.5-17.5) g/dL 13.4 L Hct (40.0-50.0) % 39.5 L MCV (80-95) fL 90 MCH (27.0-33.0) pg 30.7 MCHC (32.0-36.0) % 33.9 RDW (11.8-14.1) % 12.8 Plt Count (130-400) 10^3/uL 174 MPV (8.0-11.0) fL 9.4 Immature Gran % % 0.7 Neutrophils % % 85.3 Lymphocytes % % 4.3 Monocytes % % 8.4 Eosinophils % % 1.0 Basophils % % 0.3 Nucleated RBC % (0.0-0.3) % 0.0 Absolute Neutrophils (1.2-6.7) 10^3/uL 13.59 H Absolute Lymphocytes (1.2-3.4) 10^3/uL 0.68 L Absolute Monocytes (0.1-0.8) 10^3/uL 1.34 H Absolute Eosinophils (0.0-0.7) 10^3/uL 0.16 Absolute Basophils (0.0-0.2) 10^3/uL 0.05 VBG pH (7.31-7.41) 7.44 H VBG pCO2 (41-51) mmHg 40 L VBG pO2 mmHg 46 VBG HCO3 (23-28) mmol/L 27 VBG Total CO2 (24-29) mmol/L 24 VBG O2 Saturation % 85 VBG Base Excess (-2-3) mmol/L 3 VBG Lactate (<or=2.0) mmol/L 1.5 Urine Color (Yellow) Yellow Urine Clarity (Clear) Clear Urine pH (5-8) 6.0 Ur Specific [place] (1.005-1.025) 1.020 Urine Protein (Neg-Trace) mg/dL 30 H Urine Ketones (Negative) mg/dL Negative Urine Blood (Negative) Small H Urine Nitrite (Negative) Positive H Urine Bilirubin (Negative) Negative Urine Urobilinogen (Up to 0.2) mg/dL 2.0 H Ur Leukocyte Esterase (Negative) Small H Urine RBC (0-2) HPF 10-20 H Urine WBC (0-5) HPF >50 H Ur Epithelial Cells (Negative) HPF Few Urine Crystals (Negative) HPF Negative Urine Bacteria (Negative) HPF Many Urine Casts (Negative) LPF Negative Urine Mucus (Negative) Negative Ur Culture Indicated? Yes Urine Glucose (Negative) mg/dL 500 H Medical Decision Making 69yo M with hx DM, BPH, prior PE on warfarin, presenting with concern for UTI. 5 days of generalized malaise and increased cough from baseline; initially Tmax of 101F at onset however no fevers recently. For the past two days has had some loose stools as well as urinary frequency; urinary symptoms feel similar to prior UTI. [facility] records reviewed and show hospital admission in May of 2018 for urosepsis; at that time blood and urine cultures grew Providencia Rettgeri. Slightly tachycardiac at 92 after ambulating into triage, HR in 80's during my assessment. Repeat vital signs with HR improved to 67 without intervention. Well appearing on exam. No suprapubic or CVA tenderness, lungs CTAB. Not overtly septic and is afebrile here. Will send labs, get UA/CXR/viral swab. No abdominal tenderness to suggest acute intrabdominal process and symptoms not suggestive of c-dif or invasive gastroenteritis. No CVA tenderness or flank pain to suggest pyeleo. Labs reviewed as below, CBC with leukocytosis to 15.9, CMP reassuring (mild hypocaleemia; pt reports known issue and is on calcium supplement at home), Mg normal, VBG with mild respiratory alkalosis and normal lactate. UA suggestive of infection. Respiratory viral swab pending. With leukocytosis, will add on procal and send blood cultures. Culture and sensitivities from 2019 reviewed and will give ceftriaxone for UTI. At this time he does not appear septic and his labs are overall reassuring as are his vital signs here in the ED. Signed out to oncoming physician; plan to followup procal, CXR and EKG (for sequalea of hypocalcemia). If all reassuring would consider discharge on 14 day course of cefpodoxime 200mg BID for acute complicated cystitis and increasing calcium supplementation to QID with followup with Dr. Duarte (UTI) and PCP (calcium). Would require strict return precautions given his history. Medical Records Medical records reviewed: Yes I reviewed the patient's medical records. Lab Data Lab results reviewed: Yes I reviewed the patient's lab results. Labs: 01/29/25 06:30 Blood Blood Culture - Pending 01/29/25 06:01 Blood Blood Culture - Pending 01/29/25 05:40 Urine - Reflex from Ua Urine Culture - Pending Laboratory Tests Range/Units 01/29/25 01/29/25 05:40 05:48 WBC (4.4-10.8) 10^3/uL 15.93 H RBC (4.36-5.78) 10^6/uL 4.37 Hgb (13.5-17.5) g/dL 13.4 L Hct (40.0-50.0) % 39.5 L MCV (80-95) fL 90 MCH (27.0-33.0) pg 30.7 MCHC (32.0-36.0) % 33.9 RDW (11.8-14.1) % 12.8 Plt Count (130-400) 10^3/uL 174 MPV (8.0-11.0) fL 9.4 Immature Gran % % 0.7 Neutrophils % % 85.3 Lymphocytes % % 4.3 Monocytes % % 8.4 Eosinophils % % 1.0 Basophils % % 0.3 Nucleated RBC % (0.0-0.3) % 0.0 Absolute Neutrophils (1.2-6.7) 10^3/uL 13.59 H Absolute Lymphocytes (1.2-3.4) 10^3/uL 0.68 L Absolute Monocytes (0.1-0.8) 10^3/uL 1.34 H Absolute Eosinophils (0.0-0.7) 10^3/uL 0.16 Absolute Basophils (0.0-0.2) 10^3/uL 0.05 VBG pH (7.31-7.41) 7.44 H VBG pCO2 (41-51) mmHg 40 L VBG pO2 mmHg 46 VBG HCO3 (23-28) mmol/L 27 VBG Total CO2 (24-29) mmol/L 24 VBG O2 Saturation % 85 VBG Base Excess (-2-3) mmol/L 3 VBG Lactate (<or=2.0) mmol/L 1.5 Sodium (136-145) mmol/L 136 Potassium (3.5-5.1) mmol/L 4.1 Chloride (98-107) mmol/L 103 Carbon Dioxide (20.0-31.0) mmol/L 25.7 Anion Gap (3-11) mmol/L 7.3 BUN (9-23) mg/dL 19 Creatinine (0.73-1.18) mg/dL 0.88 Est GFR (CKD-EPI 2020) (mL/min/1.73m2) 85.16 Glucose (74-106) mg/dL 253 H Calcium (8.3-10.6) mg/dL 7.7 L Magnesium (1.6-2.6) mg/dL 1.7 Total Bilirubin (0.2-1.2) mg/dL 1.00 AST (<34) U/L 19 ALT (10-49) U/L 21 Alkaline Phosphatase (46-116) U/L 86 Total Protein (5.7-8.2) g/dL 5.7 Albumin (3.2-5.0) g/dL 3.5 TSH (0.55-4.78) uIU/mL 2.03 Urine Color (Yellow) Yellow Urine Clarity (Clear) Clear Urine pH (5-8) 6.0 Ur Specific [place] (1.005-1.025) 1.020 Urine Protein (Neg-Trace) mg/dL 30 H Urine Ketones (Negative) mg/dL Negative Urine Blood (Negative) Small H Urine Nitrite (Negative) Positive H Urine Bilirubin (Negative) Negative Urine Urobilinogen (Up to 0.2) mg/dL 2.0 H Ur Leukocyte Esterase (Negative) Small H Urine RBC (0-2) HPF 10-20 H Urine WBC (0-5) HPF >50 H Ur Epithelial Cells (Negative) HPF Few Urine Crystals (Negative) HPF Negative Urine Bacteria (Negative) HPF Many Urine Casts (Negative) LPF Negative Urine Mucus (Negative) Negative Ur Culture Indicated? Yes Urine Glucose (Negative) mg/dL 500 H PFSH All Active Problems (Updated 01/29/25 @ 07:12 by Najma Garcia MD) Acute UTI (Acute) Chronic venous insufficiency (Acute) Anticoagulation goal of INR 2 to 3 (Acute) Pseudogout of left wrist (Acute ~01/2023) Pseudogout of left knee (Acute ~01/2023) Type 2 diabetes mellitus without complication, without long-term current use of insulin (Chronic 05/21/17) History of pulmonary embolism (Chronic) snf current use of anticoagulant therapy (Chronic 03/02/15) Idiopathic unprovoked PE ~2013; no RX drug coverage, so uses Warfarin Hyperlipidemia (Chronic) Tubular adenoma of colon (Chronic 03/30/15) Family history of colon cancer (Chronic 08/09/15) F--dx'ed 70s Obesity (Chronic) Gout (Chronic) Medical History (Updated 01/29/25 @ 07:12 by Najma Garcia MD) Goiter (~2013) [facility] [place]; [place]/p thyroide[place] COVID Elevated blood pressure reading without diagnosis of hypertension UTI (urinary tract infection), bacterial Nephrolithiasis Urinary retention Bacteremia due to Gram-negative bacteria Sepsis Acute prostatitis Thyroid enlargement (07/12/13) Edentulous h/o elevated psa Pulmonary embolism (10/16/13) Post herpetic neuralgia Seasonal allergies Surgical History S/P thyroidectomy (~12/2023) Done [place]/19/2024 [place] [facility] [place] Judy Brady. With Parathyroid Autotransplantation thyroid biopsy (11/15/13) at [facility] [place] Family History Mother Essential hypertension Stroke Father Spinal stenosis Other Personal history of malignant neoplasm Social History Smoking/Tobacco Use Status: Never Smoking risk assessment performed?: Yes Alcohol Intake: former Year quit: 2008 Drug use: Never Substance use type: does not use Adopted: No Caregiver/Support person: No Foster care: No Household members: family Housing: house Number of Children: 0 Communication Needs: Corrective Lenses current occupation: used to work in [employer] Pets and animals: Yes What type of physical activity do you participate in: none and other Details: shoveling snow Duration: 45-60 minutes/day Seatbelt use: always Drive 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
--- NOTE | 2025-01-29 06:15 | DI.RAD_ITS ---
Exam(s) XR CHEST 2V PA LATERAL EXAM: XR CHEST 2V PA LATERAL CLINICAL HISTORY: cough. TECHNIQUE: 2D digital imaging was performed. COMPARISON: CR,XR XR CHEST 2V PA LATERAL from 09/17/2023 FINDINGS: 2 views: Heart size is normal. The mediastinum is not widened. Lungs are clear. No infiltrates nor pleural effusions. IMPRESSION: No acute pulmonary findings. DATA REPOSITORY: RADIATION DOSE DELIVERED:
[2025-01-29 06:18] LABS: Magnesium 1.7 mg/dL (1.6-2.6)
[2025-01-29 06:21] LABS: TSH (W/Ref FT4) 2.03 uIU/mL (0.55-4.78)
[2025-01-29 06:25] LABS: ALT 21 U/L (10-49); AST 19 U/L (<34); Albumin 3.5 g/dL (3.2-5.0); Alkaline Phosphatase 86 U/L (46-116); Anion Gap 7.3 mmol/L (3-11); BUN 19 mg/dL (9-23); Bilirubin, Total 1.00 mg/dL (0.2-1.2); CO2 25.7 mmol/L (20.0-31.0); Calcium 7.7 mg/dL (8.3-10.6); Chloride 103 mmol/L (98-107); Glucose 253 mg/dL (74-106); Potassium 4.1 mmol/L (3.5-5.1); Sodium 136 mmol/L (136-145); Total Protein 5.7 g/dL (5.7-8.2)
[2025-01-29] MEDS: cefTRIAXone 2 GM/50 ML BAG IVPB (06:27)
--- NOTE | 2025-01-29 06:30 | RT.EKG_ITS ---
APPROVED REPORT Exam: Resting ECG Reason for Exam: hypocalcemia Patient Location: E HR:63 bpm ECG Measurements Heart Rate 63 AXIS WA 167 P 43 QRSd 92 QRS 26 QT 395 T 37 QTc 406 Conclusion Sinus rhythm...normal P axis, V-rate 60- 99 No STEMI
[2025-01-29 07:12] LABS: COVID-19 PCR Negative (Negative); RSV PCR Negative (Negative)
[2025-01-29 07:14] LABS: Procalcitonin 1.02 ng/mL
--- NOTE | 2025-01-29 08:31 | DI.VRAD_ITS ---
PROCEDURE INFORMATION: Exam: XR Chest Exam date and time: 01/29/2025 7:21 AM Age: 69 years old Clinical indication: Cough TECHNIQUE: Imaging protocol: Radiologic exam of the chest. Views: 2 views. COMPARISON: CR XR CHEST 2V PA LATERAL 09/17/2023 9:18 PM FINDINGS: Lungs: Unremarkable. No consolidation. Pleural spaces: Unremarkable. No pleural effusion. No pneumothorax. Heart/Mediastinum: Grossly stable. Bones/joints: Unremarkable. IMPRESSION: No acute findings. Dictated and Authenticated by: Canelo Chaudhry MD. Orderin Radha Yao MD
--- NOTE | 2025-01-30 07:58 | NUR.NOTE ---
Nursing Note: pt had a question about OTC medications for decreasing freq and pain. Pt on multiple prescriptions. I advised pt to speak with his pharmacy about OTC that would be safe to take. I also advised to return to ED if needed.
== END 2025-01-29 08:30 | disposition home or self-care (01) ==
PROVIDERS: Student in an Organized Health Care Education/Training Program; Emergency Provider General Practice; PCP Nurse Practitioner Adult Health
DX: N39.0 Urinary tract infection, site not specified (principal); E83.51 Hypocalcemia
CPT/HCPCS: 36415; 36416; 80053; 82805; 82962; 84145; 87040; 87077; 87637; 93005; 96365; 99284; 71046; 81003; 81015; 83605; 83735; 84443; 85025; 87086; 87186; 93010; J0696

== ENCOUNTER 2025-01-30 15:09 | Emergency (ER) | payer MEDICARE, MEDICAID, SELFPAY ==
[2025-01-30 15:13] VITALS: BP 157/81; PULSE 79; RESP 18; TEMP 36.9; O2SAT 100
[2025-01-30 16:18] VITALS: BP 157/81; PULSE 79; RESP 18; TEMP 36.9; O2SAT 100
--- NOTE | 2025-01-30 16:21 | W.ED.GENAD ---
Discharge Plan Disposition Patient Disposition: Home Condition: Stable Discharge Details Clinical Impression: Acute UTI, Nodular prostate Primary Care Provider: Brittany Richard ED Provider: Sherry Dubose Home Meds and New Rx's Prescriptions: No Action (DME) 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 meter Misc See Rx Instructions .MEDSUPPLY Qty: 1 0RF Rx Instructions: As directed to check blood glucose daily. No insulin. Dispense covered brand. (DME) Blood Glucose Test Strip See Rx Instructions .MEDSUPPLY Qty: 100 3RF Rx Instructions: As directed to check blood glucose daily. No insulin. Dispense covered brand. allopurinol 100 mg tablet 100 mg PO DAILY Qty: 90 3RF lisinopril 2.5 mg tablet 2.5 mg PO DAILY Qty: 90 3RF (DME) FreeStyle Nata 3 Plus Sensor Device See Rx Instructions .Route Qty: 2 11RF Rx Instructions: As directed levothyroxine 150 mcg tablet 150 mcg PO DAILY Qty: 90 3RF colchicine 0.6 mg capsule 0.6 mg PO BID PRN (Reason: Until resolves) Qty: 20 0RF tamsulosin [Flomax] 0.4 mg capsule 0.8 mg PO DAILY Qty: 180 3RF (DME) lancets Misc See Rx Instructions .MEDSUPPLY Qty: 100 3RF Rx Instructions: As directed to check blood glucose daily. No insulin. Dispense covered brand. metformin 500 mg tablet extended release 24 hr 500 mg PO DAILY Qty: 90 3RF Rx Instructions: Daily with largest meal warfarin 5 mg tablet 5 mg PO DAILY Qty: 90 3RF Protocol: Dose Management Condition: Friday Dose/Route: 5 mg Instruction: 1 x 5 mg tablet Condition: Friday Dose/Route: 5 mg Instruction: 1 x 5 mg tablet Condition: Friday Dose/Route: 2.5 mg Instruction: 0.5 x 5 mg tablets Condition: Friday Dose/Route: 5 mg Instruction: 1 x 5 mg tablet Condition: Dose/Route: 2.5 mg Instruction: 0.5 x 5 mg tablets Condition: Friday Dose/Route: 5 mg Instruction: 1 x 5 mg tablet Condition: Friday Dose/Route: 5 mg Instruction: 1 x 5 mg tablet Protocol Text: Adjustment Start Date: 01/06/25 INR Value: 2.4 INR Date: 01/06/25 Recheck Date: 02/03/25 atorvastatin 20 mg tablet See Rx Instructions .ROUTE .COMPLEX Qty: 90 3RF Dose Instruction: TAKE ONE TABLET BY MOUTH EVERY DAY Rx Instructions: TAKE ONE TABLET BY MOUTH EVERY DAY calcium citrate-vitamin D3 315 mg-5 mcg (200 unit) tablet 2 tab PO TID (DME) FreeStyle Nata 3 [place] Misc See Rx Instructions .Route Qty: 1 0RF Rx Instructions: As directed (DME) FreeStyle Nata 2 Sensor Kit MISCELLANEOUS Patient Comments: USE DIRECTED cefpodoxime 200 mg tablet 200 mg PO BID Qty: 28 0RF Rx Instructions: must administer with a meal/food calcium citrate-vitamin D3 315 mg-5 mcg (200 unit) tablet 2 tab PO TID Qty: 90 0RF Probiotic 3 billion cell capsule 3,000 mmu cells PO DAILY Qty: 14 0RF Rx Instructions: administer with a meal Discharge Instructions Instructions: Urinary Tract Infection, Adult ED Additional Instructions: You were seen in the emergency department today for evaluation of potential blood in your urine. In our department a full physical examination performed, you had a urinary test that actually shows that the change in color is due to the medications that you are taking, including the super beet juice and the Azo. You do still have some evidence of infection and should continue to take your antibiotic as prescribed until it is gone, even if you start to feel better. You had a CT scan that showed a an enlarged, nodular prostate, and you need to be evaluated at the urology clinic for potential prostate cancer. The remainder of your laboratory studies were quite reassuring. Please maintain good hydration and nutrition, and you may use Tylenol as needed for management of pain. Please follow-up with your primary care provider in the next few days to discuss this visit and any symptoms that change, worsen, or persist. Thank you for allowing us to be part of your care. Stand Alone Forms: Portal Information Referrals: Vinh Duarte MD [ [facility] STAFF PHYSICIAN, Urology] - 1 week HPI General Mode of arrival: ambulatory. Date/Time Provider Initiated Documentation: 01/30/25 15:19. Limitations to Documentation: no limitations. Information obtained by: patient and old records reviewed. HPI Narrative: This is a 69-year-old male patient with a history of type 2 diabetes, PE on warfarin, and visit yesterday for urinary tract infection, currently taking cefpodoxime, presenting for evaluation of hematuria. The patient first noted gross hematuria this afternoon, he is not experiencing any dysuria or pain, denies abdominal or back pain, and has otherwise been in his normal state of health. No trauma reported, he has not had gross hematuria in the past. Patient is otherwise in his normal state of health without acute complaints. Related Data Home Medications ?Medication ?Instructions ?Recorded ?Confirmed blood sugar diagnostic (Blood #100 ea 09/24/22 01/30/25 Glucose Test strips) 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 meter #1 ea 09/24/22 01/30/25 colchicine 0.6 mg capsule 0.6 mg PO BID PRN Until resolves 02/07/23 01/30/25 #20 caps calcium 315 mg (as 2 tab PO TID 01/20/24 01/30/25 citrate)-vitamin D3 5 mcg (200 unit) tablet atorvastatin 20 mg tablet See Rx Instructions .Route 03/15/24 01/30/25 .COMPLEX #90 tabs warfarin 5 mg tablet 5 mg PO DAILY #90 tabs 03/15/24 01/30/25 lancets #100 ea 05/10/24 01/30/25 metformin 500 mg tablet,extended 500 mg PO DAILY #90 tabs 05/10/24 01/30/25 release 24 hr tamsulosin 0.4 mg capsule (Flomax) 0.8 mg (2 x 0.4 mg) PO DAILY #180 05/10/24 01/30/25 caps allopurinol 100 mg tablet 100 mg PO DAILY #90 tabs 07/21/24 01/30/25 lisinopril 2.5 mg tablet 2.5 mg PO DAILY #90 tabs 07/21/24 01/30/25 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 sensor (FreeStyle #2 ea 07/23/24 01/30/25 Nata 3 Plus Sensor device) flash glucose sensor (FreeStyle 10/06/24 01/30/25 Nata 2 Sensor kit) 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,filler and trimmer,cont #1 ea 10/11/24 01/30/25 (FreeStyle Nata 3 [place]) levothyroxine 150 mcg tablet 150 mcg PO DAILY #90 tabs 12/14/24 01/30/25 lactobacillus combination no.4 3 3,000 mmu cells PO DAILY #14 caps 12/25/24 01/30/25 billion cell capsule (Probiotic) calcium 315 mg (as 2 tab PO TID #90 tabs 01/29/25 01/30/25 citrate)-vitamin D3 5 mcg (200 unit) tablet cefpodoxime 200 mg tablet 200 mg PO BID #28 tabs 01/29/25 01/30/25 Previous Rx's ?Medication ?Instructions ?Recorded blood sugar diagnostic (Blood #100 ea 09/24/22 Glucose Test strips) 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 meter #1 ea 09/24/22 colchicine 0.6 mg capsule 0.6 mg PO BID PRN Until resolves 02/07/23 #20 caps atorvastatin 20 mg tablet See Rx Instructions .Route 03/15/24 .COMPLEX #90 tabs warfarin 5 mg tablet 5 mg PO DAILY #90 tabs 03/15/24 lancets #100 ea 05/10/24 metformin 500 mg tablet,extended 500 mg PO DAILY #90 tabs 05/10/24 release 24 hr tamsulosin 0.4 mg capsule (Flomax) 0.8 mg (2 x 0.4 mg) PO DAILY #180 05/10/24 caps allopurinol 100 mg tablet 100 mg PO DAILY #90 tabs 07/21/24 lisinopril 2.5 mg tablet 2.5 mg PO DAILY #90 tabs 07/21/24 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 sensor (FreeStyle #2 ea 07/23/24 Nata 3 Plus Sensor device) 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,filler and trimmer,cont #1 ea 10/11/24 (FreeStyle Nata 3 [place]) levothyroxine 150 mcg tablet 150 mcg PO DAILY #90 tabs 12/14/24 lactobacillus combination no.4 3 3,000 mmu cells PO DAILY #14 caps 12/25/24 billion cell capsule (Probiotic) calcium 315 mg (as 2 tab PO TID #90 tabs 01/29/25 citrate)-vitamin D3 5 mcg (200 unit) tablet cefpodoxime 200 mg tablet 200 mg PO BID #28 tabs 01/29/25 Allergies Allergy/AdvReac Type Severity Reaction Status Date / Time No Known Allergies Allergy Verified 01/30/25 15:18 General Stated Complaint: Urinary JOHNATHAN: 3 Exam Narrative Exam Narrative: Gen: Awake and alert, in no apparent distress HEENT: Non-icteric sclera Neck: Supple Lungs: No apparent respiratory distress, normal respiratory effort. CV: Appears well perfused, heart with regular rate and rhythm, strong distal pulses Abdomen: Non-distended, soft, nontender to palpation without rigidity, rebound, or guarding. MSK: Moves 4 extremities without apparent limitation in ROM. No peripheral edema. No CVA tenderness Skin: Visualized skin without rashes, cyanosis. Neuro: Normal Gait, no obvious focal deficits or facial asymmetry. Speaks in full, clear sentences. Psych: Appropriate for situation. Course Vital Signs Vital signs: Vital Signs Temperature 36.9 C 01/30/25 15:13 Pulse 79 01/30/25 15:13 Respiratory Rate 18 01/30/25 15:13 Blood Pressure 157/81 H 01/30/25 15:13 Pulse Oximetry 100 01/30/25 15:13 Temperature 36.9 C 01/30/25 16:18 Temperature Source Oral 01/30/25 16:18 Pulse 79 01/30/25 16:18 Respiratory Rate 18 01/30/25 16:18 Blood Pressure 157/81 H 01/30/25 16:18 Blood Pressure Position Sitting 01/30/25 16:18 Pulse Oximetry 100 01/30/25 16:18 Oxygen Delivery Method Room Air 01/30/25 16:18 Oxygen Flow Rate 0 01/30/25 16:18 Medical Decision Making This is a 69-year-old male patient presents for evaluation of hematuria. Differential includes but is not limited to UTI, certainly considered coagulopathy, renal stone, bladder or kidney mass/malignancy. Considered anemia, metabolic electrolyte derangement, kidney injury. I am reassured by the patient's overall benign physical examination and hemodynamic stability. Will obtain labs to include CBC, CMP, magnesium, coags, and urinalysis. I will proceed with a CT with contrast to evaluate for any causes of the patient's gross hematuria. - I reviewed the patient's laboratory studies, which shows no significant leukocytosis, very mild anemia to 13.3 and no thrombocytopenia. INR 1.4, patient is on warfarin, no significant electrolyte derangements other than a very mild hypokalemia and hypocalcemia which was discussed with the patient yesterday. No evidence of kidney or liver dysfunction. The patient was able to provide a urine sample, which is very reddish-orange and upon further questioning the patient has been taking both Azo and a super beet juice, which likely is the cause of the change in color of his urine. The urinalysis shows 3-5 red blood cells consistent with microscopic hematuria, the patient continues to have pyuria consistent with his previously diagnosed UTI. I did review the CT abdomen pelvis and discussed the results with the radiologist. He does have a large nodular prostate involving the floor of the bladder which may represent prostate cancer/malignancy. I did shared this finding with the patient provided him with a referral to urology. I counseled the patient on the likely change in the urine due to the medications that he is taking, and counseled him to complete his entire antibiotic course. At this time, the patient has had a full medical evaluation and is safe for discharge to home. They are hemodynamically stable, ambulatory, and tolerating PO. They are understanding of the follow-up plan and return precautions. They left our facility without incident. Sherry Dubose MD [facility] All Active Problems (Updated 01/30/25 @ 18:45 by Sherry Dubose MD) Nodular prostate (Acute) Hypocalcemia (Acute) Acute UTI (Acute) Chronic venous insufficiency (Acute) Anticoagulation goal of INR 2 to 3 (Acute) Pseudogout of left wrist (Acute ~01/2023) Pseudogout of left knee (Acute ~01/2023) Type 2 diabetes mellitus without complication, without long-term current use of insulin (Chronic 05/21/17) History of pulmonary embolism (Chronic) longterm current use of anticoagulant therapy (Chronic 03/02/15) Idiopathic unprovoked PE ~2013; no RX drug coverage, so uses Warfarin Hyperlipidemia (Chronic) Tubular adenoma of colon (Chronic 03/30/15) Family history of colon cancer (Chronic 08/09/15) F--dx'ed 70s Obesity (Chronic) Gout (Chronic) Medical History (Updated 01/30/25 @ 18:45 by Sherry Dubose MD) Goiter (~2013) [facility] Endo; s/p thyroidectomy COVID Elevated blood pressure reading without diagnosis of hypertension UTI (urinary tract infection), bacterial Nephrolithiasis Urinary retention Bacteremia due to Gram-negative bacteria Sepsis Acute prostatitis Thyroid enlargement (07/12/13) Edentulous h/o elevated psa Pulmonary embolism (10/16/13) Post herpetic neuralgia Seasonal allergies Surgical History S/P thyroidectomy (~12/2023) Done 01/19/2024 at [facility] by Dr. Judy Brady. With Parathyroid Autotransplantation thyroid biopsy (11/15/13) at [facility] Family History Mother Essential hypertension Stroke Father Spinal stenosis Other Personal history of malignant neoplasm Social History Smoking/Tobacco Use Status: Never Smoking risk assessment performed?: Yes Alcohol Intake: former Year quit: 2008 Drug use: Never Substance use type: does not use Adopted: No Caregiver/Support person: No Foster care: No Household members: family Housing: house Number of Children: 0 Communication Needs: Corrective Lenses current occupation: used to work in [employer] Pets and animals: Yes What type of physical activity do you participate in: none and other Details: shoveling snow Duration: 45-60 minutes/day Seatbelt use: always Drive intox or ride w/intox parts driver: No Water heater temp set <120 deg: No Working smoke detector in home: No Fire extinguisher in home: Yes Carbon monox detector in home: No Do you feel safe at home: Yes Do you feel safe in your relationship?: Yes Victim of physical abuse: No Victim of emotional abuse: No Victim of sexual abuse: No
--- NOTE | 2025-01-30 16:45 | DI.CT_ITS ---
Exam(s) CT ABDOMEN PELVIS W EXAM: CT ABDOMEN PELVIS W CLINICAL HISTORY: painless hematuria. TECHNIQUE: Imaging Protocol: Axial computed tomography images with coronal and sagittal reformatted images were created and reviewed CONTRAST MATERIAL: Intravenous: Omnipaque-350 100cc Oral: None COMPARISON: CT CT CHEST PE ABD PELVIS W from 06/04/2018 FINDINGS: VISUALIZED LUNG BASES: There is a nodule in the right lower lobe which measures 6 mm, unchanged from CT scan of May 2018 and therefore benign. There is some scarring in the right lung base also evident. There are no pleural effusions.. ABDOMEN: There is some respiratory motion artifact evident. There is no ascites. LIVER: There are no focal hepatic lesions evident. No dilated intrahepatic ducts. GALLBLADDER/BILIARY: No obvious gallbladder pathology. CBD is not dilated. PANCREAS: No evidence of pancreatic mass nor dilatation of the pancreatic duct. SPLEEN: Spleen size normal. Density around the spleen is most probably related to motion artifact more so than perisplenic fluid. There are no lesions in the spleen. Splenic and portal veins are patent. ADRENALS: There are no significant adrenal masses. KIDNEYS:Both kidneys appear unremarkable with normal size and no solid masses nor calculi nor hydronephrosis. No renal cysts evident. The ureters are not dilated.. ABDOMINAL AORTA: Abdominal aorta is not enlarged. LYMPH NODES:There is no retroperitoneal nor paraaortic adenopathy. ABDOMINAL WALL: There is a midline anterior abdominal wall fat only containing small umbilical hernia. Fat containing right inguinal hernia also noted. Does not contain bowel loops. GI: There is no evidence of bowel obstruction, free air, nor abscess. PELVIS: GI: No evidence of appendicitis.Sigmoid diverticuli but no evidence of acute diverticulitis. LYMPH NODES: There is no intrapelvic nor inguinal adenopathy. REPRODUCTIVE: Prostate gland is significant large on lobulated. It involves the bladder base. Seminal vesicles unremarkable. URINARY BLADDER: There is a thickened urinary bladder wall. The bladder is not distended. OSSEOUS: No fractures and no significant blastic nor lytic osseous lesions. IMPRESSION: 1. The main findings are the urinary bladder/ prostate. Prostate is grossly enlarged and lobulated and involves the bladder base. Bladder wall is thickened most probably related to an element of outflow obstruction. There are no bladder diverticuli. Urology consultation recommended to rule out pros fontaine/bladder malignancy here. 2. There are no significant findings in the kidneys and there is no hydronephrosis nor hydroureter. 3. There is a 6 millimeter nodule in the lower lobe of the right lung but this is unchanged from 2019 and therefore benign.. There are no pleural effusions. Report called by myself to ER physician 01/30/2025 at 6:05 p.m. RADIATION DOSE DELIVERED: 606.86mGy.cm Total DLP DATA REPOSITORY: All CT scans at this facility are submitted to the National Radiology Data Registry (NRDR) Dose Index Registry (DIR) with the [employer] ([employer]). RADIATION OPTIMIZATION: All CT scans at this facility use at least one of these dose optimization techniques: automated exposure control; mA and/or kV adjustment per patient size (includes targeted exams where dose is matched to clinical indication); or iterative reconstruction.
[2025-01-30 16:49] LABS: Abs Immature Grans 0.17 10^3/uL (0.0-0.06); HCT 39.0 % (40.0-50.0); HGB 13.3 g/dL (13.5-17.5); Immature Grans % 1.5 %; MCH 30.9 pg (27.0-33.0); MCHC 34.1 % (32.0-36.0); MCV 91 fL (80-95); MPV 9.0 fL (8.0-11.0); Platelet Count 240 10^3/uL (130-400); RBC 4.31 10^6/uL (4.36-5.78); RDW 12.8 % (11.8-14.1); RDW-SD 43.3 fL; WBC 11.55 10^3/uL (4.4-10.8)
[2025-01-30 16:51] VITALS: BP 143/71; PULSE 71; RESP 16; O2SAT 98
[2025-01-30 16:56] LABS: C & S Indicated? Yes; Glucose Color Interference mg/dL (Negative)
[2025-01-30 17:07] LABS: INR 1.4 (0.9-1.1); PTT Activated 29.0 sec (20.6-30.2); Prothrombin Time 13.4 sec (9.1-11.1)
[2025-01-30 17:11] LABS: Magnesium 1.6 mg/dL (1.6-2.6)
[2025-01-30 17:13] LABS: ALT 36 U/L (10-49); AST 30 U/L (<34); Albumin 4.1 g/dL (3.2-5.0); Alkaline Phosphatase 94 U/L (46-116); Anion Gap 9 mmol/L (3-11); BUN 14 mg/dL (9-23); Bilirubin, Total 0.60 mg/dL (0.2-1.2); CO2 25.0 mmol/L (20.0-31.0); Calcium 8.2 mg/dL (8.3-10.6); Chloride 102 mmol/L (98-107); Glucose 119 mg/dL (74-106); Potassium 3.4 mmol/L (3.5-5.1); Sodium 136 mmol/L (136-145); Total Protein 6.9 g/dL (5.7-8.2)
[2025-01-30] MEDS: Omnipaque 350 MG/ML 100 ML BTL IJ (17:24)
[2025-01-30] MEDS: Normal Saline - Diluent 50 ML VIAL IJ (17:24)
== END 2025-01-30 19:07 | disposition home or self-care (01) ==
PROVIDERS: Emergency Provider Emergency Medicine; PCP Nurse Practitioner Adult Health
DX: N39.0 Urinary tract infection, site not specified (principal); N40.2 Nodular prostate without lower urinary tract symptoms
CPT/HCPCS: 99284; 99285; 80053; 74177; 81003; 81015; 83735; 85025; 85610; 85730; 87086; J3490

== ENCOUNTER → 2025-02-09 14:15 | Outpatient (BNVA) | payer MEDICARE, MEDICAID, SELFPAY | PROVIDERS: PCP Nurse Practitioner Adult Health; Referring Provider Nurse Practitioner Adult Health; Visit Provider Nurse Practitioner Gerontology | DX: R33.9 Retention of urine, unspecified (principal); N40.2 Nodular prostate without lower urinary tract symptoms | CPT/HCPCS: 99214 ==